=== PATIENT | female | born 1930 | race Caucasian/White ===

== ENCOUNTER → 2017-04-15 | Outpatient (CLI) | payer MEDICARE, OTHER ==
--- NOTE | 2017-04-15 12:01 | RADIOLOGY REPORT (SQ) ---
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 Images stored on PACS. LIMITATIONS: None. FINDINGS: ANATOMY: Pituitary is larger than on the prior. No definitive mass. CSF SPACES: Normal in size and contour. No hemorrhage. CEREBRUM: Scattered high-signal intensity lesions scattered throughout the white matter on FLAIR imag ing with distribution suggesting chronic micro-vascular ischemic change. Sulci and gyri normal in si ze and contour. No evidence of hemorrhage, mass or extraaxial fluid collection. POSTERIOR FOSSA: No signal alteration. No hemorrhage. No edema, masses or mass effect. Internal viktor tory canals, cerebello-pontine angles, mastoids normal. DIFFUSION: Negative for acute or sub-acute infarction. ORBITS: No masses. Globes normal. PARANASAL SINUSES: No fluid levels. Mucosa normal. OTHER: No other significant finding. IMPRESSION: 1. No evidence of acute infarct. 2. Pituitary is enlarged compared to the prior, but no definite mass is identified and this may be ph ysiologic or due to old hemorrhage. Consider followup dedicated pituitary imaging if clinically david cated. EVIDENCE OF ACUTE STROKE: NO. TECHNICAL DOCUMENTATION: JOB ID: [id number] [employer]- All Rights Reserved Reading location - IP/workstation name: [email or web address]
--- NOTE | 2017-04-15 12:02 | RADIOLOGY REPORT (SQ) ---
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 TECHNIQUE: Axial 3-D qelx-bo-berldi acquisition imaging performed through the brain in the area of t he [place]. Images reformatted using 3-D MIPS. LIMITATIONS: None. FINDINGS: SOURCE IMAGES: No unexpected findings on source images. No large masses. 3-D MIP: No aneurysm. No occlusions. No significant stenosis. OTHER: No other significant finding. IMPRESSION: NORMAL MRA OF THE [place]. TECHNICAL DOCUMENTATION: JOB ID: [id number] [employer]- All Rights Reserved Reading location - IP/workstation name: [email or web address]
== END ==
LOC: RAD 10:02
PROVIDERS: ATTEND Specialist
DX: I67.89 Other cerebrovascular disease (principal); H53.2 Diplopia
CPT/HCPCS: 70544; 70551

== ENCOUNTER 2018-03-02 09:49 | Observation (INO) | payer MEDICARE, OTHER ==
--- NOTE | 2018-03-02 10:27 | ER Document Report ---
ED Medical Screen (RME) - General Chief Complaint: S/S of Possible Stroke Stated Complaint: STROKE SYMPTOMS Time Seen by Provider: 03/02/18 10:23 Notes: 87-year-old female with some underlying dementia. Her confusion and memory problems became acutely worse Friday morning. Her family started her on cephalexin Friday evening, as this is been used for urinary tract infections and cellulitis in the past, and she has shown worsening of her dementia with infections previously. She did have an MRI MRA of the head 11 months ago which was unremarkable. I have greeted and performed a rapid initial assessment of this patient. A comprehensive ED assessment and evaluation of the patient, analysis of test results and completion of the medical decision making process will be conducted by additional ED providers. TRAVEL OUTSIDE OF THE [place] IN LAST 30 DAYS: No - Related Data Allergies/Adverse Reactions: acetaminophen [From Darvocet-N 100] Adverse Reaction (Unknown, Verified 03/02/18 09:50) cyclobenzaprine HCl [From Flexeril] Adverse Reaction (Unknown, Verified 03/02/18 09:50) etodolac [From Lodine] Adverse Reaction (Unknown, Verified 03/02/18 09:50) propoxyphene napsylate [From Darvocet-N 100] Adverse Reaction (Unknown, Verified 03/02/18 09:50) sulfamethoxazole [From Bactrim] Adverse Reaction (Unknown, Verified 03/02/18 09:50) trimethoprim [From Bactrim] Adverse Reaction (Unknown, Verified 03/02/18 09:50) Past Medical History - Social History Chew tobacco use (# tins/day): No Frequency of alcohol use: None Drug Abuse: None - Past Medical History Cardiac Medical History: Reports: Hx Hypercholesterolemia Neurological Medical History: Reports: Hx Cerebrovascular Accident - TIA. Renal/ Medical History: Denies: Hx Peritoneal Dialysis Past Surgical History: Reports: Hx Cholecystectomy, Hx Hysterectomy Physical Exam - Vital signs Vitals: Temp Pulse Resp BP Pulse Ox 98.6 F 80 16 143/68 H 91 L 03/02/18 10:01 03/02/18 10:01 03/02/18 10:01 03/02/18 10:01 03/02/18 10:01 Course - Vital Signs Vital signs: Temp Pulse Resp BP Pulse Ox 98.6 F 80 16 143/68 H 91 L 03/02/18 10:01 03/02/18 10:01 03/02/18 10:01 03/02/18 10:01 03/02/18 10:01 Doctor's Discharge - Discharge Referrals: RASHMI PEÑA MD [Primary Care Provider] - Follow up as needed
--- NOTE | 2018-03-02 10:55 | ER Document Report ---
ED General - General Chief Complaint: S/S of Possible Stroke Stated Complaint: STROKE SYMPTOMS Time Seen by Provider: 03/02/18 10:23 TRAVEL OUTSIDE OF THE [place] IN LAST 30 DAYS: No - HPI Notes: Patient is an 87-year-old female with a history of underlying dementia, hypertension, A. fib (on Eliquis), arthritis who presents to the emergency department with daughter with a concern of altered mental status. Daughter states that on Friday morning, 2 days ago, she began being confused and not being able to recall things that she normally knows. She also has lay out of the house confused and that she has been living there for 9 years which is uncommon for her. She has had episodes similar to this previously when she would have an infection in her urine so her daughter did start Keflex a day and a half ago. They brought her here for evaluation. She is otherwise able to eat and drink without difficulty. She is urinating normally and having normal bowel movements. They have not noticed any focal weakness. Patient has been able to ambulate without any difficulties otherwise aside from her arthritic pains. No other recent illness. Denies any headache, fever, head injury, neck pain, changes in vision/speech/hearing, URI, sore throat, chest pain, palpitations, syncope, cough, shortness of breath, wheeze, dyspnea, abdominal pain, nausea/vomiting/diarrhea, urinary retention, dysuria, hematuria, loss of control of bowel or bladder, numbness/tingling, saddle anesthesia, muscle paralysis/we akness, or rash. - Related Data Allergies/Adverse Reactions: acetaminophen [From Darvocet-N 100] Adverse Reaction (Unknown, Verified 03/02/18 09:50) cyclobenzaprine HCl [From Flexeril] Adverse Reaction (Unknown, Verified 03/02/18 09:50) etodolac [From Lodine] Adverse Reaction (Unknown, Verified 03/02/18 09:50) propoxyphene napsylate [From Darvocet-N 100] Adverse Reaction (Unknown, Verified 03/02/18 09:50) sulfamethoxazole [From Bactrim] Adverse Reaction (Unknown, Verified 03/02/18 09:50) trimethoprim [From Bactrim] Adverse Reaction (Unknown, Verified 03/02/18 09:50) Past Medical History - Social History Smoking Status: Never Smoker Chew tobacco use (# tins/day): No Frequency of alcohol use: None Drug Abuse: None Family History: Reviewed & Not Pertinent Patient has suicidal ideation: No Patient has homicidal ideation: No - Past Medical History Cardiac Medical History: Reports: Hx Hypercholesterolemia Neurological Medical History: Reports: Hx Cerebrovascular Accident - TIA. Renal/ Medical History: Denies: Hx Peritoneal Dialysis Past Surgical History: Reports: Hx Cholecystectomy, Hx Hysterectomy Review of Systems - Review of Systems -: Yes All other systems reviewed and negative Physical Exam - Vital signs Vitals: Temp Pulse Resp BP Pulse Ox 98.6 F 80 16 143/68 H 91 L 03/02/18 10:03/02/18 10:03/02/18 10:03/02/18 10:03/02/18 10:01 - Notes Notes: PHYSICAL EXAMINATION: GENERAL: Well-appearing, well-nourished and in no acute distress. A&O to person and knowing her daughter. She could not tell me the correct date or place. She did know who the president was. HEAD: Atraumatic, normocephalic. Non-tender. EYES: Pupils equal round and reactive to light, extraocular movements intact, sclera anicteric, conjunctiva are normal. No nystagmus. vis barriga intact. ENT: EAC clear b/l. TM's intact b/l without erythema, fluid, or perforation. Nares patent and without discharge. oropharynx clear without exudates. No tonsilar hypertrophy or erythema. Moist mucous membranes. No sinus tenderness. NECK: Normal range of motion, supple without lymphadenopathy. No rigidi ty/meningismus. No midline tenderness. LUNGS: Breath sounds clear to auscultation bilaterally and equal. No wheezes rales or rhonchi. HEART: Regular rate and rhythm without murmurs, rubs, gallops. ABDOMEN: Soft, nontender, nondistended abdomen. No guarding, no rebound. Normal bowel sounds present. No CVA tenderness bilaterally. Musculoskeletal: Ext's b/l: FROM to passive/active. Strength 5+/5. No deficits noted. No bony tenderness of extremities. Extremities: No cyanosis, clubbing, or edema b/l. Peripheral pulses 2+. Capillary refill less than 2 seconds. NEUROLOGICAL: NIH 1. GCS 15. Cranial nerves grossly intact. Normal speech, normal gait. Normal sensory, motor exams. Reflexes 2+ b/l. WESTON's negative. Pronator drift negative. Heel/finn, finger/nose wnl. PSYCH: Normal mood, normal affect. SKIN: Warm, Dry, normal turgor, no rashes or lesions noted. Course - Re-evaluation Re-evalutation: 03/02/18 14:25 Patient is an afebrile, well-hydrated, 87-year-old female who presents to the emergency department with confusion/altered mental status and hypoxia. Patient's vitals are currently acceptable at this time and does maintain oxygen around 94% on 2 L. On room air she sits between 88 and 91%. Patient was ambulated and was found to have an oxygen saturation of 82-85% on room air. Patient is not on oxygen at home. She is already on Eliquis, does not have any significant EKG findings, has not had any tachypnea/chest pain/tachycardia, and does not have any other significant DVT risk factors. Her chest x-ray was unremarkable as well as her head CT scan. Her other labs were unremarkable including a urine. No further labs or imaging warranted at this time. I question underlying dementia versus or hypoxia adding to the confusion. I did review this case with Dr. Castro who is in agreement with admission at this time. I did thoroughly review DNR/DNI with the patient and the daughter in the room. Patient does appear to be of sound mind at this time and does state that if she was to go at her age she would like to just "go." She declined wanting intubation or any maneuvers to keep her alive including CPR and shocking of her heart. I did review with the patient as well as the [id number] that today will need to sign formal paperwork, but at this time I will accept the verbal DNR/DNI status. This was passed on to our hospitalist, Dr. Cordero, who accepted patient for admission to the medical floor. - Vital Signs Vital signs: Temp Pulse Resp BP Pulse Ox 98.6 F 80 23 H 165/121 H 94 03/02/18 10:01 03/02/18 10:01 03/02/18 13:03 03/02/18 13:03 03/02/18 13:03 - Laboratory Result Diagrams: 03/02/18 11:04 03/02/18 11:04 Laboratory results interpreted by me: 03/02/18 03/02/18 03/02/18 10:40 11:04 11:04 RDW 15.7 H VBG HCO3 Potassium 3.5 L Carbon Dioxide 32 H BUN 27 H Est GFR (Non-Af Amer) 50 L Alkaline Phosphatase 128 H Urine Urobilinogen 2.0 H Urine Ascorbic Acid 40 H 03/02/18 13:16 RDW VBG HCO3 32.5 H Potassium Carbon Dioxide BUN Est GFR (Non-Af Amer) Alkaline Phosphatase Urine Urobilinogen Urine Ascorbic Acid Discharge - Discharge Clinical Impression: Hypoxemia Altered mental status, unspecified Qualifiers: Altered mental status type: unspecified Qualified Code(s): R41.82 - Altered mental status, unspecified Condition: Stable Disposition: ADMITTED INPATIENT Admitting Provider: Hospitalist - Dr. Cordero Unit Admitted: Medical Floor Referrals: RASHMI PEÑA MD [Primary Care Provider] - Follow up as needed ED NIH Stroke Scale - NIH Stroke Scale When completed:: Before Alteplase *: 1. NIH scale should be completed with appropriate accompanying assessment tools. *: 2. The NIH should reflect what the patient is capable of doing and should not be coached by the clinician. 1a. Level of Consciousness: 0=Alert;keenly responsive -: 1=Drowsy -: 2=Obtunded -: 3=Coma/unresponsive or reflex to noxious stimuli. 1a. Responses: 1 1b. Orientation Questions: a. What month is it? -: b. How old are you? -: 0=Answers both questions correctly. -: 1=Answers one question correctly or patient is intubated or has orotracheal trauma. -: 2=Answers neither question correctly. 1b. Responses: 0 1c. Response to commands: a. Open and close eyes? -: b. Copping Machine Operator and release hand? -: Credit is given despite weakness. Demonstration of task is permitted. Substitute command if hands cannot be used. -: 0=Performs both tasks correctly -: 1=Performs one task correctly -: 2=Performs neither task correctly 1c. Responses: 0 2. Gaze: Establish eye contact and instruct patient to "Follow my finger" -: 0=Normal -: 1=Partial gaze palsy. Gaze is abnormal in one or both eyes, but where forced deviation or total gaze paresis is not present. -: 2=Forced deviation or total gaze paresis. 2. Responses: 0 3. Visual Barriga: Sees fingers in all four quadrants. -: 0=No visual loss. -: 1=Partial hemianopsia. -: 2=Complete hemianopsia. -: 3=Bilateral hemianopsia (including Cortical blindness) 3. Responses: 0 4. Facial Movement: Instruct patient to: -: a. Show me your teeth -: b. Raise your eyebrows -: c. Close your eyes -: d. Smile -: 0=Normal symmetrical movement -: 1=Minor paralysis (flattened nasolabial fold, asymmetry on smiling). -: 2=Partial paralysis (total or near total paralysis of lower face). -: 3=Complete paralysis of upper and lower face 4. Responses: 0 5. Motor functions (left arm): Alternate sides and extend each arm with palms down (90 degrees if sitting or 45 degrees for supine). -: 0=No drift;limb holds for full 10 seconds. -: 1=Drift; limb holds but drifts down before full 10 seconds, but does not hit bed. -: 2=Some effort against gravity; limb cannot get to or maintain position. -: 3=No effort against gravity; limb falls. -: 4=No movement. -: UN=Amputation, joint fusion, explain in comments. 5. Responses (left arm): 0 5. Motor Functions (right arm): Alternate sides and extend each arm with palms down (90 degrees if sitting or 45 degrees for supine). -: 0=No drift;limb holds for full 10 seconds. -: 1=Drift; limb holds but drifts down before full 10 seconds, but does not hit bed. -: 2=Some effort against gravity; limb cannot get to or maintain position. -: 3=No effort against gravity; limb falls. -: 4=No movement. -: UN=Amputation, joint fusion, explain in comments. 5. Responses (right arm): 0 6. Motor Functions (left leg): With patient lying supine, alternate sides and extend each leg (30 degrees always while supine). -: 0=No drift, leg holds position for full 5 seconds -: 1=Drift; leg falls before full 5 seconds but does not hit bed. -: 2=Some effort against gravity, leg falls to bed but some effort against gravity. -: 3=No effort against gravity, leg falls to bed immediately. -: 4=No movement. -: UN=Amputation, joint fusion; explain in comments. 6. Responses (left leg): 0 6. Motor Functions (right leg): With patient lying supine, alternate sides and extend each leg (30 degrees always while supine). -: 0=No drift, leg holds position for full 5 seconds -: 1=Drift; leg falls before full 5 seconds but does not hit bed. -: 2=Some effort against gravity, leg falls to bed but some effort against gravity. -: 3=No effort against gravity, leg falls to bed immediately. -: 4=No movement. -: UN=Amputation, joint fusion; explain in comments. 6. Responses (right leg): 0 7. Limb Ataxia: With eyes open instruct patient to: -: a. "Touch your finger to your nose". -: b. "Touch your heel to your finn" -: 0=Absent -: 1=Present in one limb. -: 2=Present in two limbs. -: UN=Amputation or joint fusion; explain in comments. 7. Responses: 0 8. Sensory: Test sensation using pinprick or noxious stimuli. Test as many body parts as possible. -: 0=Normal;no sensory loss -: 1=Mile to moderate sensory loss (patient feels pin prick but is less sharp on affected side). -: 2=Severe or total sensory loss. 8. Responses: 0 9. Best Language: Instruct patient to: -: a. "Describe what you see in this picture." -: b. "Name the items in this picture." -: c. "Read these sentences." -: 0=No aphasia, normal -: 1=Mild to moderate aphasia. -: 2=Severe aphasia -: 3=Mute, global aphasia, no usable speech or auditory comprehension. 9. Responses: 0 10. Articulation, Dysarthia: Instruct patient to: -: "Read these words" or "Repeat these words" -: 0=Normal -: 1=Mild to moderate; patient may slur some words but can be understood without difficulty. -: 2=Severe; patients speech so slurred as to be unintelligible in the absence of dysphasia. -: UN=Intubated or other physical barrier, explain in comments. 10. Responses: 0 11. Extinction or inattention: 0=No abnormality -: 1= Visual, tactile, auditory, spatial, or personal inattention or extinction to bilateral simulation in one or the sensory modalities. -: 2=Profound higinio-inattention or higinio-inattention to more than one modality; does not recognize own hand. 11. Responses: 0 Total Score: 1
[2018-03-02 11:02] LABS: APPEARANCE,URINE CLEAR; BILIRUBIN,URINE NEGATIVE (NEGATIVE); COLOR,URINE YELLOW; GLUCOSE, URINE NEGATIVE (NEGATIVE); KETONES,URINE NEGATIVE (NEGATIVE); LEUKOCYTE ESTERASE,URINE NEGATIVE (NEGATIVE); NITRITE,URINE NEGATIVE (NEGATIVE); PROTEIN,URINE NEGATIVE (NEGATIVE); URINE SPECIFIC GRAVITY 1.017
[2018-03-02 11:25] LABS: ABSOLUTE EOSINOPHILS # (AUTO) 0.1 10^3/uL (0.0-0.6); ABSOLUTE LYMPHOCYTES (AUTO) 2.9 10^3/uL (0.5-4.7); ABSOLUTE MONOCYTES (AUTO) 0.9 10^3/uL (0.1-1.4); ABSOLUTE NEUT (AUTO) 4.3 10^3/uL (1.7-8.2); BASOPHILS % (AUTO) 0.3 % (0-2); EOSINOPHILS % (AUTO) 1.5 % (0-6); HEMATOCRIT 42.6 % (36.0-47.0); HEMOGLOBIN 14.2 g/dL (12.0-15.5); LYMPHOCYTES % (AUTO) 34.5 % (13-45); MEAN CORPUSCULAR HEMOGLOBIN 29.4 pg (27.0-33.4); MEAN CORPUSCULAR HGB CONC 33.3 g/dL (32.0-36.0); MEAN CORPUSCULAR VOLUME 89 fl (80-97); MONOCYTES % (AUTO) 11.2 % (3-13); PLATELET COUNT 301 10^3/uL (150-450); RED BLOOD COUNT 4.81 10^6/uL (3.72-5.28); RED CELL DISTRIBUTION WIDTH 15.7 % (11.5-14.0); SEGMENTED NEUTROPHILS % (AUTO) 52.5 % (42-78); TOTAL CELLS COUNTED % (AUTO) 100 %; WHITE BLOOD COUNT 8.3 10^3/uL (4.0-10.5)
--- NOTE | 2018-03-02 11:35 | RADIOLOGY REPORT (SQ) ---
EXAM DESCRIPTION: CT HEAD WITHOUT COMPLETED DATE/TIME: 03/02/2018 11:24 am REASON FOR STUDY: AMS COMPARISON: None. TECHNIQUE: Axial images acquired through the brain without intravenous contrast. Images reviewed wi th bone, brain and subdural windows. Additional sagittal and coronal reconstructions were generated. Images stored on PACS. All CT scanners at this facility use dose modulation, iterative reconstruction, and/or weight based d osing when appropriate to reduce radiation dose to as low as reasonably achievable (ALARA). [facility]: Dose Right [facility]: CareDose [facility]: Dose Right [facility]: Teradose 4D [facility]: BoxC RADIATION DOSE: CT Rad equipment meets quality standard of care and radiation dose reduction techniq ues were employed. CTDIvol: 48.6 mGy. DLP: 904 mGy-cm.mGy. LIMITATIONS: None. FINDINGS: VENTRICLES: Prominent. CEREBRUM: No masses. No hemorrhage. No midline shift. Areas of low density in the white matter mos t likely due to chronic micro-vascular ischemic change. No evidence for acute infarction. CEREBELLUM: No masses. No hemorrhage. No alteration of density. No evidence for acute infarction. EXTRAAXIAL SPACES: Age-related involutional change. No fluid collections. No masses. ORBITS AND GLOBE: No intra- or extraconal masses. Normal contour of globe without masses. CALVARIUM: No fracture. PARANASAL SINUSES: No fluid or mucosal thickening. SOFT TISSUES: No mass or hematoma. OTHER: No other significant finding. IMPRESSION: CHRONIC CHANGES OF ATROPHY AND MICROVASCULAR ISCHEMIA. NO ACUTE PROCESS. EVIDENCE OF ACUTE STROKE: NO. TECHNICAL DOCUMENTATION: JOB ID: [id number] Quality ID # [id number]: Final reports with documentation of one or more dose reduction techniques (e.g., Au tomated exposure control, adjustment of the mA and/or kV according to patient size, use of iterative reconstruction technique) 2010 [employer]- All Rights Reserved Reading location - IP/workstation name: [email or web address]
[2018-03-02 11:42] LABS: ALANINE AMINOTRANSFERASE 36 U/L (9-52); ALBUMIN 3.9 g/dL (3.5-5.0); ALKALINE PHOSPHATASE 128 U/L (38-126); ANION GAP 8 (5-19); ASPARTATE AMINO TRANSFERASE 29 U/L (14-36); BILIRUBIN,DIRECT 0.4 mg/dL (0.0-0.4); BILIRUBIN,TOTAL 0.7 mg/dL (0.2-1.3); BLOOD UREA NITROGEN 27 mg/dL (7-20); CALCIUM 9.7 mg/dL (8.4-10.2); CARBON DIOXIDE 32 mmol/L (22-30); CHLORIDE 99 mmol/L (98-107); CREATINE KINASE 33 U/L (30-135); GLUCOSE 95 mg/dL (75-110); POTASSIUM 3.5 mmol/L (3.6-5.0); SODIUM 138.7 mmol/L (137-145); TOTAL PROTEIN 6.6 g/dL (6.3-8.2)
[2018-03-02 12:34] LABS: URINE AMPHETAMINES SCREEN NEGATIVE; URINE BARBITURATES SCREEN NEGATIVE; URINE BENZODIAZEPINES SCREEN NEGATIVE; URINE COCAINE SCREEN NEGATIVE; URINE MARIJUANA (THC) SCREEN NEGATIVE; URINE METHADONE SCREEN NEGATIVE; URINE PHENCYCLIDINE SCREEN NEGATIVE
[2018-03-02 13:31] LABS: VENOUS BLOOD BASE EXCESS 6.1 mmol/L; VENOUS BLOOD HCO3 32.5 mmol/L (20-32); VENOUS BLOOD PCO2 53.6 mmHg (35-63); VENOUS BLOOD PH 7.4 (7.30-7.42)
--- NOTE | 2018-03-02 14:10 | RADIOLOGY REPORT (SQ) ---
EXAM DESCRIPTION: CHEST SINGLE VIEW COMPLETED DATE/TIME: 03/02/2018 1:45 pm REASON FOR STUDY: low o2 COMPARISON: None. EXAM PARAMETERS: NUMBER OF VIEWS: One view. TECHNIQUE: Single frontal radiographic view of the chest acquired. RADIATION DOSE: NA LIMITATIONS: AP portable. FINDINGS: LUNGS AND PLEURA: No opacities, masses or pneumothorax. No pleural effusion. MEDIASTINUM AND HILAR STRUCTURES: No masses. Contour normal. HEART AND VASCULAR STRUCTURES: Heart normal in size for technique. Normal vasculature. BONES: No acute findings. HARDWARE: None in the chest. OTHER: No other significant finding. IMPRESSION: NO ACUTE RADIOGRAPHIC FINDING IN THE CHEST. TECHNICAL DOCUMENTATION: JOB ID: [id number] [employer]- All Rights Reserved Reading location - IP/workstation name: [email or web address]
--- NOTE | 2018-03-02 15:40 | PDOC H&P ---
History of Present Illness Admission Date/PCP: 03/02/18 14:58 RASHMI PEÑA MD History of Present Illness: MICKEY VASQUEZ is a 87 year old female with a history of cognitive impairment, atrial fibrillation, chronic pain, depression, and hypertension, who presents with a worsening of her cognitive impairment for the past 3 days. She began to be more confused than usual, not remembering where she was even though the surrounding should have been familiar. She could not remember a conversation she had just finished having. Her symptoms have been steady since they began. She has not had any discernable physical symptoms. She sits most of the day, and has been having trouble walking short distances for several months. She sometimes has to have help getting back from the bathroom. She is unable to tell me why she is in the ER today. When they ambulated her, her SpO2 dropped to the mid-80's and came back up at rest. She has not displayed any respiratory complaints. Past Medical History Cardiac Medical History: Reports: Hyperlipidema Past Surgical History Past Surgical History: Reports: Cholecystectomy, Hysterectomy Social History Smoking Status: Never Smoker Family History Family History: Reviewed & Not Pertinent Parental Family History Reviewed: Yes - unknown Children Family History Reviewed: Yes - noncontributory Sibling(s) Family History Reviewed.: Yes - noncontributory Medication/Allergy Allergies/Adverse Reactions: acetaminophen [From Darvocet-N 100] Adverse Reaction (Unknown, Verified 03/02/18 09:50) cyclobenzaprine HCl [From Flexeril] Adverse Reaction (Unknown, Verified 03/02/18 09:50) etodolac [From Lodine] Adverse Reaction (Unknown, Verified 03/02/18 09:50) propoxyphene napsylate [From Darvocet-N 100] Adverse Reaction (Unknown, Verified 03/02/18 09:50) sulfamethoxazole [From Bactrim] Adverse Reaction (Unknown, Verified 03/02/18 09:50) trimethoprim [From Bactrim] Adverse Reaction (Unknown, Verified 03/02/18 09:50) Review of Systems ROS unobtainable: Due to mental status Physical Exam Vital Signs: Temp Pulse Resp BP Pulse Ox 98.6 F 80 14 165/121 H 94 03/02/18 10:01 03/02/18 10:01 03/02/18 14:35 03/02/18 13:03 03/02/18 13:03 Intake & Output 03/01/18 03/02/18 03/03/18 06:59 06:59 06:59 Weight 99.4 kg General appearance: PRESENT: no acute distress, cooperative, morbidly obese Head exam: PRESENT: atraumatic, normocephalic Eye exam: PRESENT: EOMI, PERRLA. ABSENT: conjunctival injection, nystagmus, scleral icterus Ear exam: PRESENT: normal external ear exam Mouth exam: PRESENT: moist, neck supple Throat exam: ABSENT: post pharyngeal erythema Neck exam: PRESENT: full ROM. ABSENT: carotid bruit, JVD, lymphadenopathy, meningismus, tenderness, thyromegaly Respiratory exam: PRESENT: clear to auscultation brianne, symmetrical, unlabored. ABSENT: accessory muscle use, crackles, prolonged expiratory phas, rhonchi, tachypnea, wheezes Cardiovascular exam: PRESENT: irregular rhythm Vascular exam: PRESENT: normal capillary refill GI/Abdominal exam: PRESENT: normal bowel sounds, soft. ABSENT: distended, guarding, rebound, tenderness Extremities exam: ABSENT: clubbing, pedal edema Musculoskeletal exam: PRESENT: ambulatory - uses a cane, needs help with transfers, cannot walk far Neurological exam: PRESENT: alert, awake, oriented to person, CN II-XII grossly intact. ABSENT: oriented to place, oriented to time, oriented to situation, motor sensory deficit Psychiatric exam: PRESENT: appropriate affect, normal mood Skin exam: PRESENT: dry, warm Results Laboratory Results: 03/02/18 11:04 03/02/18 11:04 03/02/18 03/02/18 03/02/18 10:40 11:04 11:04 WBC 8.3 RBC 4.81 Hgb 14.2 Hct 42.6 MCV 89 MCH 29.4 MCHC 33.3 RDW 15.7 H Plt Count 301 Seg Neutrophils % 52.5 Lymphocytes % 34.5 Monocytes % 11.2 Eosinophils % 1.5 Basophils % 0.3 Absolute Neutrophils 4.3 Absolute Lymphocytes 2.9 Absolute Monocytes 0.9 Absolute Eosinophils 0.1 Absolute Basophils 0.0 VBG pH VBG pCO2 VBG HCO3 VBG Base Excess Sodium 138.7 Potassium 3.5 L Chloride 99 Carbon Dioxide 32 H Anion Gap 8 BUN 27 H Creatinine 1.04 Est GFR ( Amer) > 60 Est GFR (Non-Af Amer) 50 L Glucose 95 Calcium 9.7 Total Bilirubin 0.7 AST 29 ALT 36 Alkaline Phosphatase 128 H Total Protein 6.6 Albumin 3.9 Urine Color YELLOW Urine Appearance CLEAR Urine pH 8.0 Ur Specific Marshall 1.017 Urine Protein NEGATIVE Urine Glucose (UA) NEGATIVE Urine Ketones NEGATIVE Urine Blood NEGATIVE Urine Nitrite NEGATIVE Ur Leukocyte Esterase NEGATIVE Urine WBC (Auto) 3 03/02/18 13:16 WBC RBC Hgb Hct MCV MCH MCHC RDW Plt Count Seg Neutrophils % Lymphocytes % Monocytes % Eosinophils % Basophils % Absolute Neutrophils Absolute Lymphocytes Absolute Monocytes Absolute Eosinophils Absolute Basophils VBG pH 7.40 VBG pCO2 53.6 VBG HCO3 32.5 H VBG Base Excess 6.1 Sodium Potassium Chloride Carbon Dioxide Anion Gap BUN Creatinine Est GFR ( Amer) Est GFR (Non-Af Amer) Glucose Calcium Total Bilirubin AST ALT Alkaline Phosphatase Total Protein Albumin Urine Color Urine Appearance Urine pH Ur Specific Marshall Urine Protein Urine Glucose (UA) Urine Ketones Urine Blood Urine Nitrite Ur Leukocyte Esterase Urine WBC (Auto) 03/02/18 03/02/18 11:04 11:04 Creatine Kinase 33 Troponin I < 0.012 Impressions: Head CT 03/02/18 10:51 IMPRESSION: CHRONIC CHANGES OF ATROPHY AND MICROVASCULAR ISCHEMIA. NO ACUTE PROCESS. EVIDENCE OF ACUTE STROKE: NO. Chest X-Ray 03/02/18 12:53 IMPRESSION: NO ACUTE RADIOGRAPHIC FINDING IN THE CHEST. Assessment & Plan - Diagnosis (1) Encephalopathy Is this a current diagnosis for this admission?: Yes Plan: I suspect a progression of her cognitive impairment, likely dementia. Head CT normal. Will get MRI of the brain. Her chronic pain meds could be exacerbating it, but I do note that she has been on the same regimen for several months. (2) Hypoxemia Is this a current diagnosis for this admission?: Yes Plan: I believe it is from deconditioning. She is sedentary, and cannot ambulate more than a few feet without getting winded, and she recovers quickly at rest. She shows no signs or cardiac or pulmonary decompensation. Will see if she qualifies for home O2. Will get PT/OT eval. She would benefit from cardiopulmonary rehab. (3) Atrial fibrillation Qualifiers: Atrial fibrillation type: chronic Qualified Code(s): I48.2 - Chronic atrial fibrillation Is this a current diagnosis for this admission?: Yes Plan: will continue her diltiazem, flecainide, and Eliquis. - Time Time Spent: 50 to 70 Minutes
[2018-03-02 16:10] LABS: FREE T4 (FREE THYROXINE) 0.95 ng/dL (0.78-2.19)
[2018-03-02 16:24] LABS: THYROID STIMULATING HORMONE 3.75 uIU/mL (0.47-4.68)
--- NOTE | 2018-03-02 18:38 | RADIOLOGY REPORT (SQ) ---
EXAM DESCRIPTION: MRI HEAD WITHOUT COMPLETED DATE/TIME: 03/02/2018 6:08 pm REASON FOR STUDY: encephalopathy COMPARISON: 04/15/2017 TECHNIQUE: Multiplanar imaging includes non-contrasted T1, T2, FLAIR, and diffusion with ADC map seq uences. Images stored on PACS. LIMITATIONS: None. FINDINGS: ANATOMY: No anomalies. Normal vascular flow voids. Pituitary gland is prominent. CSF SPACES: Lateral ventricles are prominent. Sulci and fissures are slightly prominent. CEREBRUM: Gyri normal in size and contour. Scattered small areas of increased white matter signal on FLAIR imaging. No evidence of hemorrhage, mass, or extraaxial fluid collection. POSTERIOR FOSSA: No signal alteration. No hemorrhage. No edema, masses or mass effect. Internal viktor tory canals, cerebello-pontine angles, mastoids normal. DIFFUSION IMAGING: Negative for acute or sub-acute infarction. ORBITS: No masses. Globes normal. PARANASAL SINUSES: No fluid levels. Mucosa normal. OTHER: No other significant finding. IMPRESSION: Mild involutional changes of aging and mild chronic microvascular ischemia. Prominent p ituitary gland. No acute intracranial imaging findings. No significant interval change. EVIDENCE OF ACUTE STROKE: NO. TECHNICAL DOCUMENTATION: JOB ID: [id number] [employer]- All Rights Reserved Reading location - IP/workstation name: [email or web address]
[2018-03-02] MEDS ORDERED: TRAMADOL HCL 50 MG TABLET PO PRN (23:20)
[2018-03-02] MEDS ORDERED: (PENDING PHARMACY ID) (Torsemide [Demadex 10 Mg Tablet] 10 MG) PO SCH (23:30)
[2018-03-02] MEDS ORDERED: ATORVASTATIN CALCIUM 80 MG TABLET PO ONE ×2 (23:45→23:59)
[2018-03-02] MEDS ORDERED: MORPHINE SULFATE SR 30 MG TABLET PO ONE (23:59)
[2018-03-02] MEDS ORDERED: APIXABAN 5 MG TABLET PO ONE (23:59)
[2018-03-02] MEDS ORDERED: TOLTERODINE TARTRATE 1 MG TABLET PO ONE (23:59)
--- NOTE | 2018-03-03 00:10 | EKG REPORT ---
SEVERITY:- ABNORMAL ECG - SINUS RHYTHM, REC REPEAT EKG SEC TO BASELINE ARTIFACTS BORDERLINE LEFT AXIS DEVIATION NONSPECIFIC T ABNORMALITIES, LATERAL LEADS : Confirmed by: Jasmeet Winn 03-Mar-2018 00:09:55
[2018-03-03 07:06] LABS: ANION GAP 8 (5-19); BLOOD UREA NITROGEN 27 mg/dL (7-20); CALCIUM 9.4 mg/dL (8.4-10.2); CARBON DIOXIDE 33 mmol/L (22-30); CHLORIDE 98 mmol/L (98-107); GLUCOSE 101 mg/dL (75-110); POTASSIUM 3.6 mmol/L (3.6-5.0); SODIUM 139.4 mmol/L (137-145)
[2018-03-03] MEDS ORDERED: TORSEMIDE 20 MG TABLET PO SCH (08:00)
[2018-03-03] MEDS: BUPROPION HCL 75 MG TABLET PO SCH ×2 (09:35→15:27)
--- NOTE | 2018-03-03 09:58 | Physician Advisory Note ---
Physician Advisor ProgressNote .: Pursuant to the plan for [facility], I have reviewed the medical record for this patient. Physician Advisor Statement: Please consider documenting, if you agree: 1. "Acute metabolic encephalopathy due to [hypoxemia? dehydration? ...]" vs "Acute AMS/delirium due to progression of dementia" (worsening of dementia is not considered an "encephalopathy") vs "Acute cerebrovascular insufficiency due to hypoxemia", vs "toxic encephalopathy due to ____ [Rx names]" vs ... 2. "Acute hypoxemia, suspect due to " (pulmonary hypertension? COPD? acute/chronic syst/diast CHF? interstitial lung dz? ... ) - no previous ECHO or chest CT in [facility]. - Abd CT from 2014 showed scattered calcified granulomas & linear scarri ng vs atelec of lung bases, along with a 2.6 x 1.9cm mass Lt kidney c/w Renal Cell Carcinoma. - if deconditioning is the suspected cause, please explain how deconditioning could cause hypoxemia, ... - or do you think, by time of d/c, she instead has "chronic hypoxemia, likely due to ____, now requiring __L O2 at baseline" 3. Status/medical necessity: Medicare pt appropriately brought in as Obs for mental status changes & hypoxemia of unclear etiology. - If attending is still concerned about pt 03/03, finding pt not yet clinically safe for d/c, please document ongoing clinical issues/concerns needing continued eval/monitoring, and may change to Inpatient status. Thanks! CK
[2018-03-03] MEDS ORDERED: FLECAINIDE ACETATE 100 MG TABLET PO SCH ×2 (10:00)
[2018-03-03] MEDS ORDERED: BUPROPION HCL 75 MG TABLET PO SCH (10:00)
[2018-03-03] MEDS ORDERED: MORPHINE SULFATE SR 30 MG TABLET PO SCH (10:00)
[2018-03-03] MEDS ORDERED: APIXABAN 5 MG TABLET PO SCH (10:00)
[2018-03-03] MEDS ORDERED: (PENDING PHARMACY ID) (Naloxegol Oxalate 25 MG) PO SCH (10:00)
[2018-03-03] MEDS ORDERED: TOLTERODINE TARTRATE 1 MG TABLET PO SCH (10:00)
[2018-03-03 12:48] VITALS: BP 125/63
--- NOTE | 2018-03-03 14:57 | PDOC DISCHARGE SUMMARY ---
General - Admit/Disc Date/PCP Admission Date/Primary Care Provider: 03/02/18 14:58 RASHMI PEÑA MD Discharge Date: 03/03/18 - Discharge Diagnosis (2) Atrial fibrillation Is this a current diagnosis for this admission?: Yes (3) Encephalopathy Is this a current diagnosis for this admission?: Yes (4) Hypoxemia Is this a current diagnosis for this admission?: Yes - Additional Information Resuscitation Status: Do Not Resuscitate Home Medications: Apixaban [Eliquis 5 mg Tablet] 5 mg PO Q12 03/02/18 Ascorbic Acid [Vitamin C] 1,000 mg PO DAILY 03/02/18 Atorvastatin Calcium [Lipitor 80 mg Tablet] 80 mg PO QHS 03/02/18 Bupropion HCl [Wellbutrin 75 mg Tablet] 75 mg PO TID 03/02/18 Diltiazem HCl [Cardizem] 120 mg PO QPM 03/02/18 Duloxetine HCl [Cymbalta] 30 mg PO QPM 03/02/18 Flecainide Acetate [Tambocor 100 mg Tablet] 50 mg PO BID 03/02/18 Morphine Sulfate [Morphine Sulfate ER] 30 mg PO Q12 03/02/18 Naloxegol Oxalate [Movantik 25 mg Tablet] 25 mg PO DAILY 03/02/18 Solifenacin Succinate [Vesicare] 5 mg PO DAILY 03/02/18 Torsemide [Demadex 10 mg Tablet] 10 mg PO Q3D MDD *NEXT DOSE DUE 03-03-18* 03/02/18 Tramadol HCl [Ultram 50 mg Tablet] 50 mg PO BIDP PRN 03/02/18 Triamterene/Hydrochlorothiazid [Maxzide-25 Tablet] 2 tab PO QAM 03/02/18 History of Present Illness History of Present Illness: MICKEY VASQUEZ is a 87 year old female with a history of cognitive impairment, atrial fibrillation, chronic pain, depression, and hypertension, who presents with a worsening of her cognitive impairment for the past 3 days. She began to be more confused than usual, not remembering where she was even though the surrounding should have been familiar. She could not remember a conversation she had just finished having. Her symptoms have been steady since they began. She has not had any discernable physical symptoms. She sits most of the day, and has been having trouble walking short distances for several months. She sometimes has to have help getting back from the bathroom. She is unable to tell me why she is in the ER today. When they ambulated her, her SpO2 dropped to the mid-80's and came back up at rest. She has not displayed any respiratory complaints. Hospital Course Hospital Course: This is a very pleasant 87 years old female patient admitted yesterday with chief complaint of altered mental status. Patient has underlying dementia and atrial fibrillation. At that admission patient shows some hypoxemia which has resolved. Currently patient is at her baseline. Z altered mental status is probably part of the natural course of her dementia. Her vital signs and labs are within normal limits. Patient is stable enough to go home today Physical Exam Vital Signs: Temp Pulse Resp BP Pulse Ox 99.0 F 70 18 106/69 96 03/03/18 10:58 03/03/18 10:58 03/03/18 10:58 03/03/18 10:58 03/03/18 10:58 Intake & Output 03/02/18 03/03/18 03/04/18 06:59 06:59 06:59 Intake Total 0 355 Balance 0 355 Weight 99.4 kg General appearance: PRESENT: no acute distress Eye exam: PRESENT: conjunctiva pink Mouth exam: PRESENT: moist Neck exam: ABSENT: carotid bruit, JVD, lymphadenopathy, thyromegaly Respiratory exam: PRESENT: clear to auscultation brianne. ABSENT: rales, rhonchi, wheezes Cardiovascular exam: PRESENT: RRR. ABSENT: diastolic murmur, rubs, systolic murmur GI/Abdominal exam: PRESENT: normal bowel sounds, soft. ABSENT: distended, g uarding, mass, organolmegaly, rebound, tenderness Neurological exam: PRESENT: alert, awake, oriented to time, oriented to situation Results Laboratory Results: 03/02/18 11:04 03/03/18 06:14 03/02/18 03/02/18 03/03/18 11:04 15:35 06:14 Sodium 139.4 Potassium 3.6 Chloride 98 Carbon Dioxide 33 H Anion Gap 8 BUN 27 H Creatinine 1.05 Est GFR ( Amer) > 60 Est GFR (Non-Af Amer) 50 L Glucose 101 Calcium 9.4 Ammonia < 8.7 L TSH 3.75 Free T4 0.95 03/02/18 03/02/18 11:04 11:04 Creatine Kinase 33 Troponin I < 0.012 Impressions: Head MRI 03/02/18 00:00 IMPRESSION: Mild involutional changes of aging and mild chronic microvascular ischemia. Prominent pituitary gland. No acute intracranial imaging findings. No significant interval change. EVIDENCE OF ACUTE STROKE: NO. Head CT 03/02/18 10:51 IMPRESSION: CHRONIC CHANGES OF ATROPHY AND MICROVASCULAR ISCHEMIA. NO ACUTE PROCESS. EVIDENCE OF ACUTE STROKE: NO. Chest X-Ray 03/02/18 12:53 IMPRESSION: NO ACUTE RADIOGRAPHIC FINDING IN THE CHEST. Qualifiers - * PATIENT BEING DISCHARGED WITH ANY OF THE FOLLOWING DIAGNOSIS: No
[2018-03-03] MEDS ORDERED: DILTIAZEM HCL 60 MG TABLET PO SCH (18:00)
[2018-03-03] MEDS ORDERED: DULOXETINE HCL 30 MG CAPSULE.DR PO SCH (18:00)
[2018-03-03] MEDS ORDERED: ATORVASTATIN CALCIUM 80 MG TABLET PO SCH (22:00)
== END 2018-03-03 16:59 | disposition home health service (06) ==
LOC: ER 09:49 → EH 14:58 → INTOOBSV 14:58 → 4S 21:36
PROVIDERS: ADMIT Internal Medicine; ATTEND Internal Medicine
DX: I48.2 Chronic atrial fibrillation (principal); R09.02 Hypoxemia; G93.40 Encephalopathy, unspecified; F03.90 Unspecified dementia, unspecified severity, without behavioral disturbance, psychotic disturbance, mood disturbance, and anxiety; E66.01 Morbid (severe) obesity due to excess calories; M19.90 Unspecified osteoarthritis, unspecified site; G89.29 Other chronic pain; M62.81 Muscle weakness (generalized); F32.9 Major depressive disorder, single episode, unspecified; Z79.02 Long term (current) use of antithrombotics/antiplatelets; Z90.49 Acquired absence of other specified parts of digestive tract; Z90.710 Acquired absence of both cervix and uterus; Z66 Do not resuscitate; Z79.899 Other long term (current) drug therapy; Z86.73 Personal history of transient ischemic attack (TIA), and cerebral infarction without residual deficits; R29.701 NIHSS score 1
CPT/HCPCS: 93005; 99285; 36415 ×2; 87040; 84439; 82140; 82550; 84443; 85025; 80048; 80053; 81001; 84484; 80307; 82803; 70551; 71045; 70450; 93010; 97116; 97161; 97165; G0378 ×3; A9270 ×6; J3490

== ENCOUNTER 2018-03-24 11:44 | Inpatient (IN) | payer MEDICARE, OTHER ==
--- NOTE | 2018-03-24 12:25 | ER Document Report ---
ED Medical Screen (RME) - General Chief Complaint: Rectal Bleeding Stated Complaint: BLEEDING FROM RECTUM Time Seen by Provider: 03/24/18 12:20 Notes: 87-year-old female patient to the emergency department for evaluation of bright red blood per rectum. Family members are here. States that she looks a little bit more pale. More confused. Picture shown of blood in the toilet. On Eliquis. I have greeted and performed a rapid initial assessment of this patient. A comprehensive ED assessment and evaluation of the patient, analysis of test results and completion of the medical decision making process will be conducted by additional ED providers. TRAVEL OUTSIDE OF THE [place] IN LAST 30 DAYS: No - Related Data Allergies/Adverse Reactions: acetaminophen [From Darvocet-N 100] Adverse Reaction (Unknown, Verified 03/24/18 12:00) cyclobenzaprine HCl [From Flexeril] Adverse Reaction (Unknown, Verified 03/24/18 12:00) etodolac [From Lodine] Adverse Reaction (Unknown, Verified 03/24/18 12:00) propoxyphene napsylate [From Darvocet-N 100] Adverse Reaction (Unknown, Verified 03/24/18 12:00) sulfamethoxazole [From Bactrim] Adverse Reaction (Unknown, Verified 03/24/18 12:00) trimethoprim [From Bactrim] Adverse Reaction (Unknown, Verified 03/24/18 12:00) Past Medical History - Past Medical History Cardiac Medical History: Reports: Hx Hypercholesterolemia Neurological Medical History: Reports: Hx Cerebrovascular Accident - TIA. Renal/ Medical History: Denies: Hx Peritoneal Dialysis Past Surgical History: Reports: Hx Cholecystectomy, Hx Hysterectomy Physical Exam - Vital signs Vitals: Temp Pulse Resp BP Pulse Ox 99.1 F 72 18 119/59 L 91 L 03/24/18 12:03 03/24/18 12:03 03/24/18 12:03 03/24/18 12:03 03/24/18 12:03 Course - Vital Signs Vital signs: Temp Pulse Resp BP Pulse Ox 99.1 F 72 18 119/59 L 91 L 03/24/18 12:03 03/24/18 12:03 03/24/18 12:03 03/24/18 12:03 03/24/18 12:03
[2018-03-24 13:13] LABS: ABSOLUTE EOSINOPHILS # (AUTO) 0.2 10^3/uL (0.0-0.6); ABSOLUTE LYMPHOCYTES (AUTO) 2.5 10^3/uL (0.5-4.7); ABSOLUTE NEUT (AUTO) 5.3 10^3/uL (1.7-8.2); BASOPHILS % (AUTO) 0.1 % (0-2); EOSINOPHILS % (AUTO) 2.4 % (0-6); HEMATOCRIT 37.4 % (36.0-47.0); HEMOGLOBIN 12.6 g/dL (12.0-15.5); LYMPHOCYTES % (AUTO) 27.9 % (13-45); MEAN CORPUSCULAR HEMOGLOBIN 29.1 pg (27.0-33.4); MEAN CORPUSCULAR HGB CONC 33.8 g/dL (32.0-36.0); MEAN CORPUSCULAR VOLUME 86 fl (80-97); MONOCYTES % (AUTO) 11.3 % (3-13); PLATELET COUNT 388 10^3/uL (150-450); RED BLOOD COUNT 4.33 10^6/uL (3.72-5.28); RED CELL DISTRIBUTION WIDTH 16.1 % (11.5-14.0); SEGMENTED NEUTROPHILS % (AUTO) 58.3 % (42-78); TOTAL CELLS COUNTED % (AUTO) 100 %
[2018-03-24 13:23] LABS: INTERNATIONAL RATION (INR) 1.49; PROTHROMBIN TIME 18.8 SEC (11.4-15.4)
[2018-03-24 13:24] LABS: PARTIAL THROMBOPLASTIN TIME 45.3 SEC (23.5-35.8)
--- NOTE | 2018-03-24 13:51 | ER Document Report ---
Addendum entered and electronically signed by PADMAJA ANDERSON PA-C 03/24/18 15:50: Course - Re-evaluation Re-evalutation: 03/24/18 15:50 2+ pitting edema LE's b/l. - Vital Signs Vital signs: Temp Pulse Resp BP Pulse Ox 99.1 F 72 18 119/59 L 91 L 03/24/18 12:03 03/24/18 12:03 03/24/18 12:03 03/24/18 12:03 03/24/18 12:03 - Laboratory Result Diagrams: 03/24/18 13:00 03/24/18 13:53 Laboratory results interpreted by me: 03/24/18 03/24/18 03/24/18 13:00 13:00 13:53 RDW 16.1 H PT 18.8 H APTT 45.3 H Potassium 3.1 L Chloride 95 L Carbon Dioxide 36 H BUN 31 H Est GFR ( Amer) 59 L Est GFR (Non-Af Amer) 49 L Total Protein 5.5 L Albumin 3.1 L Original Note: ED General - General Chief Complaint: Rectal Bleeding Stated Complaint: BLEEDING FROM RECTUM Time Seen by Provider: 03/24/18 12:20 TRAVEL OUTSIDE OF THE [place] IN LAST 30 DAYS: No - HPI Notes: Patient is an 87-year-old female with a history of cognitive impairment, atrial fibrillation, chronic pain, depression, chronic hypoxemia with deconditioning, and hypertension who presents the emergency department complaining of seeing blood in her stool over the last 1-2 days. Family is currently not at bedside with the patient. Patient states that she does not have any pain. She has been eating and drinking without difficulty. She has been urinating normally and otherwise having normal bowel movements. Patient has felt weaker recently. Denies any headache, fever, neck pain, falls, URI, sore throat, chest pain, palpitations, syncope, cough, shortness of breath, wheeze, dyspnea, abdominal pain, nausea/vomiting/diarrhea, urinary retention, dysuria, or rash. 1445 I was able to speak with the daughter in law on the phone: Her is on his way in, but they have noticed blood in the toilet w/o stool and she has been having approx 6-7 bloody BM's since last night. She has been weaker than normal and needing more assistance with ADL's. - Related Data Allergies/Adverse Reactions: acetaminophen [From Darvocet-N 100] Adverse Reaction (Unknown, Verified 03/24/18 12:00) cyclobenzaprine HCl [From Flexeril] Adverse Reaction (Unknown, Verified 03/24/18 12:00) etodolac [From Lodine] Adverse Reaction (Unknown, Verified 03/24/18 12:00) propoxyphene napsylate [From Darvocet-N 100] Adverse Reaction (Unknown, Verified 03/24/18 12:00) sulfamethoxazole [From Bactrim] Adverse Reaction (Unknown, Verified 03/24/18 12:00) trimethoprim [From Bactrim] Adverse Reaction (Unknown, Verified 03/24/18 12:00) Past Medical History - Social History Smoking Status: Never Smoker Chew tobacco use (# tins/day): No Frequency of alcohol use: None Drug Abuse: None Family History: Reviewed & Not Pertinent Patient has suicidal ideation: No Patient has homicidal ideation: No - Past Medical History Cardiac Medical History: Reports: Hx Hypercholesterolemia Neurological Medical History: Reports: Hx Cerebrovascular Accident - TIA. Renal/ Medical History: Denies: Hx Peritoneal Dialysis Past Surgical History: Reports: Hx Cholecystectomy, Hx Hysterectomy Review of Systems - Review of Systems -: Yes All other systems reviewed and negative Physical Exam - Vital signs Vitals: Temp Pulse Resp BP Pulse Ox 99.1 F 72 18 119/59 L 91 L 03/24/18 12:03 03/24/18 12:03 03/24/18 12:03 03/24/18 12:03 03/24/18 12:03 - Notes Notes: PHYSICAL EXAMINATION: GENERAL: Well-appearing, well-nourished and in no acute distress. HEAD: Atraumatic, normocephalic. EYES: Pupils equal round and reactive to light, extraocular movements intact, sclera anicteric, conjunctiva are normal. ENT: Nares patent and without discharge. oropharynx clear without exudates. No tonsilar hypertrophy or erythema. Moist mucous membranes. NECK: Normal range of motion, supple without lymphadenopathy LUNGS: Breath sounds clear to auscultation bilaterally and equal. No wheezes rales or rhonchi. HEART: Regular rate and rhythm without murmurs, rubs, gallops. ABDOMEN: Soft, nontender, nondistended abdomen. No guarding, no rebound. No masses appreciated. Normal bowel sounds present. No CVA tenderness bilaterally. Pelvic (performed by Ning CARPIO): no blood in the vaginal canal. Rectal (performed by Ning CARPIO): brown stool with red flecks noted. Musculoskeletal: FROM to passive/active. Strength 5+/5. Extremities: No cyanosis, clubbing, or edema b/l. Peripheral pulses 2+. Capillary refill less than 3 seconds. NEUROLOGICAL: Cranial nerves grossly intact. Normal speech, normal gait. Normal sensory, motor exams PSYCH: Normal mood, normal affect. SKIN: tinea cruris b/l inguinal areas. No purulent. Course - Re-evaluation Re-evalutation: 03/24/18 15:21 Patient is an afebrile, well-hydrated, 87-year-old female who presents emerged red blood in her stool, suspect lower GI bleed. Vitals are acceptable without significant tachycardia, tachypnea, hypotension. Patient has been borderline hypoxic, but is near her baseline. She has no other cardia pulmonary symptoms. She is nontoxic-appearing and is tolerating p.o. without difficulty. Patient is currently hemodynamically stable with a stable H&H. UA unremarkable. See CMP, with mild hypokalemia. I did speak with ESTEBAN [place], who would like the patient brought in for observation and he will be consulting. I did speak with our hospitalist, Dr. Miller, who accepted patient for admit to telemetry. Patient and family in agreement with plan. - Vital Signs Vital signs: Temp Pulse Resp BP Pulse Ox 99.1 F 72 18 119/59 L 91 L 03/24/18 12:03 03/24/18 12:03 03/24/18 12:03 03/24/18 12:03 03/24/18 12:03 - Laboratory Result Diagrams: 03/24/18 13:00 03/24/18 13:53 Laboratory results interpreted by me: 03/24/18 03/24/18 03/24/18 13:00 13:00 13:53 RDW 16.1 H PT 18.8 H APTT 45.3 H Potassium 3.1 L Chloride 95 L Carbon Dioxide 36 H BUN 31 H Est GFR ( Amer) 59 L Est GFR (Non-Af Amer) 49 L Total Protein 5.5 L Albumin 3.1 L Procedures - Pelvic Exam Pelvic exam Time completed: 14:05 - performed by Ning CARPIO Cultures obtained: No Wet prep obtained: No Bimanual exam performed: No Discharge - Discharge Clinical Impression: Rectal bleeding, Weakness, Hypoxemia Condition: Stable Disposition: ADMITTED INPATIENT Admitting Provider: Hospitalist - Dr. Miller Unit Admitted: Telemetry
[2018-03-24 14:21] LABS: ALANINE AMINOTRANSFERASE 27 U/L (9-52); ALBUMIN 3.1 g/dL (3.5-5.0); ALKALINE PHOSPHATASE 77 U/L (38-126); ANION GAP 8 (5-19); ASPARTATE AMINO TRANSFERASE 18 U/L (14-36); BILIRUBIN,DIRECT 0.3 mg/dL (0.0-0.4); BILIRUBIN,TOTAL 0.4 mg/dL (0.2-1.3); BLOOD UREA NITROGEN 31 mg/dL (7-20); CALCIUM 9.1 mg/dL (8.4-10.2); CARBON DIOXIDE 36 mmol/L (22-30); CHLORIDE 95 mmol/L (98-107); GLUCOSE 95 mg/dL (75-110); POTASSIUM 3.1 mmol/L (3.6-5.0); SODIUM 138.7 mmol/L (137-145); TOTAL PROTEIN 5.5 g/dL (6.3-8.2)
[2018-03-24] MEDS ORDERED: POTASSIUM CHLORIDE 10 MEQ CAPSULE.ER PO ONE (15:23)
[2018-03-24] MEDS ORDERED: ONDANSETRON HCL INJ/PF 4 MG/2 ML SDV IV PRN (15:50)
[2018-03-24] MEDS ORDERED: NORMAL SALINE 250 ML IV PRN (15:59)
--- NOTE | 2018-03-24 16:20 | PDOC H&P ---
History of Present Illness Admission Date/PCP: 03/24/18 15:43 Patient complains of: Blood in the stool History of Present Illness: MICKEY VASQUEZ is a 87 year old female with history of atrial fibrillation on Eliquis, high blood pressure, anxiety, depression, no history of congestive heart failure brought in by family members after noticing bright colored blood in the stool for the last 3 days. She has this problem on and off but for the last 3 days she is having the loose stools in association with heavy bright colored blood in the stool. In the emergency room the workup was done and patient was found to be in A. fib with RVR and hemoglobin is 12.6 the case was discussed with Dr. Hou chief engineer research he is going to see the patient tomorrow for further evaluation. medical consult was called for possible admission to the telemetry. I went to talk to the son and the patient, patient is alert and awake oriented not in distress denies any complaints at all for the last 3-4 days noticed bright colored blood in the stool not associated with ab dominal pain no nausea no vomiting no constipation but she is having the loose stools blood . Denies any headaches dizzy spells denies any falls. No fever no cough no cold no chest pains. Patient wants to be full code. Past Medical History Cardiac Medical History: Reports: Hyperlipidema Endocrine Medical History: Reports: Obesity Malignancy Medical History: Reports: Renal (Kidney) Cancer Musculoskeltal Medical History: Reports: Arthritis Past Surgical History Past Surgical History: Reports: Cholecystectomy, Hysterectomy, Orthopedic Faraz ariella Social History Smoking Status: Never Smoker Frequency of Alcohol Use: None Hx Recreational Drug Use: No Drugs: None Hx Prescription Drug Abuse: No - Advance Directive Resuscitation Status: Full Code Family History Family History: Reviewed & Not Pertinent Parental Family History Reviewed: Yes Children Family History Reviewed: Yes Sibling(s) Family History Reviewed.: Yes Medication/Allergy Allergies/Adverse Reactions: acetaminophen [From Darvocet-N 100] Adverse Reaction (Unknown, Verified 03/24/18 12:00) cyclobenzaprine HCl [From Flexeril] Adverse Reaction (Unknown, Verified 03/24/18 12:00) etodolac [From Lodine] Adverse Reaction (Unknown, Verified 03/24/18 12:00) propoxyphene napsylate [From Darvocet-N 100] Adverse Reaction (Unknown, Verified 03/24/18 12:00) sulfamethoxazole [From Bactrim] Adverse Reaction (Unknown, Verified 03/24/18 12:00) trimethoprim [From Bactrim] Adverse Reaction (Unknown, Verified 03/24/18 12:00) Review of Systems Constitutional: ABSENT: fever(s), headache(s) Eyes: ABSENT: visual disturbances Ears: ABSENT: hearing changes Nose, Mouth, and Throat: ABSENT: mouth pain, sore throat Respiratory: ABSENT: dyspnea, hemoptysis Gastrointestinal: PRESENT: diarrhea, other - bright colored blood in stool. Musculoskeletal: ABSENT: joint swelling Integumentary: ABSENT: rash, wounds Neurological: ABSENT: abnormal gait, abnormal speech, confusion, dizziness, focal weakness, syncope Psychiatric: ABSENT: anxiety, depression, homidical ideation, suicidal ideation Physical Exam Vital Signs: Temp Pulse Resp BP Pulse Ox 99.1 F 72 18 119/59 L 91 L 03/24/18 12:03 03/24/18 12:03 03/24/18 12:03 03/24/18 12:03 03/24/18 12:03 Intake & Output 03/23/18 03/24/18 03/25/18 06:59 06:59 06:59 Weight 101.6 kg General appearance: PRESENT: no acute distress Head exam: PRESENT: atraumatic Eye exam: PRESENT: PERRLA Mouth exam: PRESENT: moist Neck exam: ABSENT: carotid bruit, JVD, lymphadenopathy, thyromegaly Respiratory exam: PRESENT: clear to auscultation brianne. ABSENT: rales, rhonchi, wheezes Cardiovascular exam: PRESENT: irregular rhythm, systolic murmur, tachycardia GI/Abdominal exam: PRESENT: normal bowel sounds, soft. ABSENT: distended, guarding, mass, organolmegaly, rebound, tenderness Neurological exam: PRESENT: alert, awake, oriented to person, oriented to place, oriented to time, oriented to situation, CN II-XII grossly intact. ABSENT: motor sensory deficit Psychiatric exam: PRESENT: appropriate affect, normal mood. ABSENT: homicidal ideation, suicidal ideation Results Laboratory Results: 03/24/18 13:00 03/24/18 13:53 03/24/18 03/24/18 03/24/18 13:00 13:00 13:53 WBC 9.0 RBC 4.33 Hgb 12.6 Hct 37.4 MCV 86 MCH 29.1 MCHC 33.8 RDW 16.1 H Plt Count 388 Seg Neutrophils % 58.3 Lymphocytes % 27.9 Monocytes % 11.3 Eosinophils % 2.4 Basophils % 0.1 Absolute Neutrophils 5.3 Absolute Lymphocytes 2.5 Absolute Monocytes 1.0 Absolute Eosinophils 0.2 Absolute Basophils 0.0 Sodium Cancelled 138.7 Potassium Cancelled 3.1 L Chloride Cancelled 95 L Carbon Dioxide Cancelled 36 H Anion Gap Cancelled 8 BUN Cancelled 31 H Creatinine Cancelled 1.06 Est GFR ( Amer) Cancelled 59 L Est GFR (Non-Af Amer) Cancelled 49 L Glucose Cancelled 95 Calcium Cancelled 9.1 Total Bilirubin Cancelled 0.4 AST Cancelled 18 ALT Cancelled 27 Alkaline Phosphatase Cancelled 77 Total Protein Cancelled 5.5 L Albumin Cancelled 3.1 L Assessment & Plan - Diagnosis (1) Rectal bleeding Is this a current diagnosis for this admission?: Yes Plan: 03/24/2018 plan is to admit the patient as inpatient in telemetry. Consultation with Dr. Hou was placed, consultation with Dr. Zarate was placed. Going to keep the patient n.p.o. from midnight. Eliquis will be on hold. Plan to restart her home medications. Going to type and crossmatch 1 unit and hold 1 unit of prbc for now. Plan to do the regular CBC on daily basis. Family wants her to be full code. Placed on GI prophylaxis famotidine 20 mg twice a day. She was placed on SCDs no pharmacologic prophylaxis because of active bleeding. Discussed the advantages and disadvantages of withholding Eliquis. Son understood verbalize response. He prefers to her mom on Eliquis to prevent further strokes in the future. (2) Atrial fibrillation Qualifiers: Atrial fibrillation type: chronic Qualified Code(s): I48.2 - Chronic atrial fibrillation Is this a current diagnosis for this admission?: Yes Plan: 03/24/2018-patient has chronic history of atrial fibrillation and Eliquis. Admitted for lower GI bleed. Eliquis will be held for today. We are going to keep her n.p.o. from midnight for possible colonoscopy tomorrow. Explained to the son, we may have to use heparin iv as a bridge while the patient is off Eliquis. But the son to does not want her mom to be on heparin drip. Patient is on flecainide and diltiazem at home plan is to resume those medications during the hospital stay. (3) HTN (hypertension) Is this a current diagnosis for this admission?: Yes Plan: 03/24/2018 patient has history of hypertension blood pressure today is 119/60 stable. Plan is to resume her home medications. (4) Depression Is this a current diagnosis for this admission?: Yes Plan: 03/24/2018 patient has history of depression on duloxetine. Plan is to resume the medications while she was in the hospital. - Time Time Spent: 50 to 70 Minutes Medications reviewed and adjusted accordingly: Yes Anticipated discharge: Home
[2018-03-24 16:22] LABS: APPEARANCE,URINE CLEAR; BILIRUBIN,URINE NEGATIVE (NEGATIVE); COLOR,URINE STRAW; GLUCOSE, URINE NEGATIVE (NEGATIVE); KETONES,URINE NEGATIVE (NEGATIVE); LEUKOCYTE ESTERASE,URINE NEGATIVE (NEGATIVE); NITRITE,URINE NEGATIVE (NEGATIVE); PROTEIN,URINE NEGATIVE (NEGATIVE); URINE SPECIFIC GRAVITY 1.006; UROBILINOGEN,URINE NEGATIVE mg/dL (<2.0)
--- NOTE | 2018-03-24 16:41 | RADIOLOGY REPORT (SQ) ---
EXAM DESCRIPTION: CHEST 2 VIEWS COMPLETED DATE/TIME: 03/24/2018 4:26 pm REASON FOR STUDY: protocol COMPARISON: 03/02/2018 EXAM PARAMETERS: NUMBER OF VIEWS: two views TECHNIQUE: Digital Frontal and Lateral radiographic views of the chest acquired. RADIATION DOSE: NA LIMITATIONS: none FINDINGS: LUNGS AND PLEURA: No opacities, masses or pneumothorax. No pleural effusion. MEDIASTINUM AND HILAR STRUCTURES: No masses or contour abnormalities. HEART AND VASCULAR STRUCTURES: Stable Enlarged cardiac silhouette. Tortuous atherosclerotic aorta. BONES: No acute findings. HARDWARE: None in the chest. OTHER: No other significant finding. IMPRESSION: No evidence of acute cardiopulmonary process. TECHNICAL DOCUMENTATION: JOB ID: [id number] [employer]- All Rights Reserved Reading location - IP/workstation name: [email or web address]
--- NOTE | 2018-03-24 17:21 | PDOC CONSULTATION ---
Consultation Consult Date: 03/24/18 Attending physician:: MICHELLE HARRIS Consult reason:: GI bleeding History of Present Illness Admission Date/PCP: 03/24/18 15:43 History of Present Illness: MICKEY VASQUEZ is a 87 year old female Case was discussed with the ED patient has a history of A Fib and presented with blood in stools on multiple occasions patient has a stable Hgb but needs to be admitted for observation she likely has a diverticular bleeding that is worse due to the fact that she is on Eliquis there is noted to have a discussion that patient's family does not want to stop her Eliquis however she then cannot have any procedures done since nothing therapeutic can be done also she may continue to bleed she has been typed and crossed for PRBC but transfusion is appropriately held however will have to follow on H/H, suspect that it may drop with hydration she is held NPO but again if she is not off her anticoagulation , then I am not sure having a procedure done will be useful since no therapeutic measures can be done she does have an elevated BUN to creat ratio as well ? upper GI Past Medical History Cardiac Medical History: Reports: Hyperlipidema Endocrine Medical History: Reports: Obesity Malignancy Medical History: Reports: Renal (Kidney) Cancer Musculoskeltal Medical History: Reports: Arthritis Past Surgical History Past Surgical History: Reports: Cholecystectomy, Hysterectomy, Orthopedic Surgery Social History Smoking Status: Never Smoker Frequency of Alcohol Use: None Hx Recreational Drug Use: No Drugs: None Hx Prescription Drug Abuse: No - Advance Directive Resuscitation Status: Full Code Family History Family History: Reviewed & Not Pertinent Parental Family History Reviewed: Yes Children Family History Reviewed: Unknown Sibling(s) Family History Reviewed.: Unknown Medication/Allergy Allergies/Adverse Reactions: acetaminophen [From Darvocet-N 100] Adverse Reaction (Unknown, Verified 03/24/18 12:00) cyclobenzaprine HCl [From Flexeril] Adverse Reaction (Unknown, Verified 03/24/18 12:00) etodolac [From Lodine] Adverse Reaction (Unknown, Verified 03/24/18 12:00) propoxyphene napsylate [From Darvocet-N 100] Adverse Reaction (Unknown, Verified 03/24/18 12:00) sulfamethoxazole [From Bactrim] Adverse Reaction (Unknown, Verified 03/24/18 12:00) trimethoprim [From Bactrim] Adverse Reaction (Unknown, Verified 03/24/18 12:00) Review of Systems Constitutional: ABSENT: fever(s), headache(s), night sweats, weakness Eyes: ABSENT: visual disturbances Ears: ABSENT: hearing changes Nose, Mouth, and Throat: ABSENT: mouth pain Cardiovascular: ABSENT: edema, orthropnea, palpitations Respiratory: ABSENT: dyspnea, hemoptysis Gastrointestinal: PRESENT: hematochezia. ABSENT: dysphagia Genitourinary: ABSENT: dysuria, hematuria Musculoskeletal: ABSENT: deformity, joint swelling Integumentary: ABSENT: lesions, pruritus Neurological: ABSENT: syncope, tingling, tremor(s), vertigo Endocrine: ABSENT: polydipsia, polyphagia, polyuria Hematologic/Lymphatic: ABSENT: easy bruising Physical Exam Vital Signs: Temp Pulse Resp BP Pulse Ox 99.1 F 72 18 119/59 L 91 L 03/24/18 12:03 03/24/18 12:03 03/24/18 12:03 03/24/18 12:03 03/24/18 12:03 Intake & Output 03/23/18 03/24/18 03/25/18 06:59 06:59 06:59 Weight 101.6 kg General appearance: PRESENT: no acute distress, well-developed, well-nourished Head exam: PRESENT: atraumatic, normocephalic Eye exam: PRESENT: EOMI, PERRLA. ABSENT: nystagmus, scleral icterus Mouth exam: PRESENT: moist, neck supple Throat exam: ABSENT: tonsillar exudate, tonsillogmegaly Respiratory exam: PRESENT: symmetrical, unlabored. ABSENT: tachypnea, wheezes Cardiovascular exam: PRESENT: irregular rhythm GI/Abdominal exam: PRESENT: soft. ABSENT: rebound, rigid, tenderness Extremities exam: ABSENT: joint swelling Neurological exam: PRESENT: oriented to time, oriented to situation, CN II-XII grossly intact Focused psych exam: ABSENT: restlessness Skin exam: PRESENT: normal color. ABSENT: mottled, pallor, urticaria, vesicles Results Laboratory Results: 03/24/18 13:00 03/24/18 13:53 03/24/18 03/24/18 03/24/18 13:00 13:00 13:53 WBC 9.0 RBC 4.33 Hgb 12.6 Hct 37.4 MCV 86 MCH 29.1 MCHC 33.8 RDW 16.1 H Plt Count 388 Seg Neutrophils % 58.3 Lymphocytes % 27.9 Monocytes % 11.3 Eosinophils % 2.4 Basophils % 0.1 Absolute Neutrophils 5.3 Absolute Lymphocytes 2.5 Absolute Monocytes 1.0 Absolute Eosinophils 0.2 Absolute Basophils 0.0 Sodium Cancelled 138.7 Potassium Cancelled 3.1 L Chloride Cancelled 95 L Carbon Dioxide Cancelled 36 H Anion Gap Cancelled 8 BUN Cancelled 31 H Creatinine Cancelled 1.06 Est GFR ( Amer) Cancelled 59 L Est GFR (Non-Af Amer) Cancelled 49 L Glucose Cancelled 95 Calcium Cancelled 9.1 Total Bilirubin Cancelled 0.4 AST Cancelled 18 ALT Cancelled 27 Alkaline Phosphatase Cancelled 77 Total Protein Cancelled 5.5 L Albumin Cancelled 3.1 L Urine Color Urine Appearance Urine pH Ur Specific [place] Urine Protein Urine Glucose (UA) Urine Ketones Urine Blood Urine Nitrite Ur Leukocyte Esterase Urine WBC (Auto) Urine RBC (Auto) Blood Type Antibody Screen 03/24/18 03/24/18 15:38 16:00 WBC RBC Hgb Hct MCV MCH MCHC RDW Plt Count Seg Neutrophils % Lymphocytes % Monocytes % Eosinophils % Basophils % Absolute Neutrophils Absolute Lymphocytes Absolute Monocytes Absolute Eosinophils Absolute Basophils Sodium Potassium Chloride Carbon Dioxide Anion Gap BUN Creatinine Est GFR ( Amer) Est GFR (Non-Af Amer) Glucose Calcium Total Bilirubin AST ALT Alkaline Phosphatase Total Protein Albumin Urine Color STRAW Urine Appearance CLEAR Urine pH 7.0 Ur Specific [place] 1.006 Urine Protein NEGATIVE Urine Glucose (UA) NEGATIVE Urine Ketones NEGATIVE Urine Blood NEGATIVE Urine Nitrite NEGATIVE Ur Leukocyte Esterase NEGATIVE Urine WBC (Auto) 3 Urine RBC (Auto) 1 Blood Type O POSITIVE Antibody Screen NEGATIVE 03/24/18 03/24/18 03/24/18 13:00 13:00 13:53 Creatine Kinase 21 L CK-MB (CK-2) 0.63 NT-Pro-B Natriuret Pep 209 Impressions: Chest X-Ray 03/24/18 00:00 IMPRESSION: No evidence of acute cardiopulmonary process. Assessment & Plan - Diagnosis (1) Rectal bleeding Is this a current diagnosis for this admission?: Yes Plan: she likely has a diverticular bleeding that has been made worse by the fact that she is on Eliquis. her Eliquis needs to be stopped at least temporarily since she could continue to bleed. the family does not appear to want this..... Cardiology has been consulted. however she is deconditioned and is unclear if she would be a candidate for any sort of invasive procedure given the need for a complete prep. the majority of diverticular bleeding subsides on own, however it would be recommended that her Elquis be discontinued; not stopping her anticoagulation would now be a discussion between Cardiology, Hosopitalist and the patient's family since in the event any urgent endoscopic procedures that needs to be done, it cannot take place with the patient being on anticoagulation. transfuse as necessary follow up on H/H Get old records to see if previous procedures has been performed in the past. will continue to follow as needed - Time Time Spent: 50 to 70 Minutes
[2018-03-24] MEDS: TORSEMIDE 20 MG TABLET PO SCH (18:34)
[2018-03-24] MEDS: NYSTATIN/TRIAMCIN CREAM 15 GM TP SCH ×2 (18:34→22:22)
[2018-03-24] MEDS ORDERED: FAMOTIDINE 20 MG TABLET PO SCH (22:00)
[2018-03-24] MEDS: FLECAINIDE ACETATE 100 MG TABLET PO SCH (22:16)
[2018-03-24] MEDS: ATORVASTATIN CALCIUM 20 MG TABLET PO SCH (22:16)
[2018-03-24] MEDS: FAMOTIDINE 20 MG TABLET PO SCH (22:17)
[2018-03-24] MEDS: DILTIAZEM HCL 60 MG TABLET PO SCH (22:17)
[2018-03-25 05:53] LABS: ABSOLUTE EOSINOPHILS # (AUTO) 0.2 10^3/uL (0.0-0.6); ABSOLUTE LYMPHOCYTES (AUTO) 2.2 10^3/uL (0.5-4.7); ABSOLUTE MONOCYTES (AUTO) 0.9 10^3/uL (0.1-1.4); ABSOLUTE NEUT (AUTO) 5.1 10^3/uL (1.7-8.2); BASOPHILS % (AUTO) 0.5 % (0-2); EOSINOPHILS % (AUTO) 2.6 % (0-6); HEMATOCRIT 33.4 % (36.0-47.0); HEMOGLOBIN 11.4 g/dL (12.0-15.5); LYMPHOCYTES % (AUTO) 26.5 % (13-45); MEAN CORPUSCULAR HEMOGLOBIN 29.1 pg (27.0-33.4); MEAN CORPUSCULAR HGB CONC 34.3 g/dL (32.0-36.0); MEAN CORPUSCULAR VOLUME 85 fl (80-97); MONOCYTES % (AUTO) 10.6 % (3-13); PLATELET COUNT 329 10^3/uL (150-450); RED BLOOD COUNT 3.93 10^6/uL (3.72-5.28); RED CELL DISTRIBUTION WIDTH 15.7 % (11.5-14.0); SEGMENTED NEUTROPHILS % (AUTO) 59.8 % (42-78); TOTAL CELLS COUNTED % (AUTO) 100 %; WHITE BLOOD COUNT 8.5 10^3/uL (4.0-10.5)
[2018-03-25 06:12] LABS: ALANINE AMINOTRANSFERASE 15 U/L (9-52); ALBUMIN 2.8 g/dL (3.5-5.0); ALKALINE PHOSPHATASE 70 U/L (38-126); ANION GAP 10 (5-19); ASPARTATE AMINO TRANSFERASE 18 U/L (14-36); BILIRUBIN,DIRECT 0.2 mg/dL (0.0-0.4); BILIRUBIN,TOTAL 0.4 mg/dL (0.2-1.3); BLOOD UREA NITROGEN 29 mg/dL (7-20); CALCIUM 8.8 mg/dL (8.4-10.2); CARBON DIOXIDE 35 mmol/L (22-30); CHLORIDE 94 mmol/L (98-107); CREATINE KINASE 25 U/L (30-135); GLUCOSE 101 mg/dL (75-110); SODIUM 138.7 mmol/L (137-145); TOTAL PROTEIN 5.1 g/dL (6.3-8.2)
[2018-03-25 06:18] LABS: POTASSIUM 2.9 mmol/L (3.6-5.0)
[2018-03-25] MEDS: POTASSIUM CHLORIDE 20 MEQ/50 ML RTU IV SCH ×2 (08:12→10:55)
[2018-03-25] MEDS ORDERED: DULOXETINE HCL 30 MG CAPSULE.DR PO SCH (10:00)
[2018-03-25] MEDS: FLECAINIDE ACETATE 100 MG TABLET PO SCH ×2 (10:16→21:25)
[2018-03-25] MEDS: DILTIAZEM HCL 60 MG TABLET PO SCH ×2 (10:16→21:24)
[2018-03-25] MEDS: TORSEMIDE 20 MG TABLET PO SCH (10:17)
[2018-03-25] MEDS: FLUCONAZOLE 100 MG TABLET PO SCH (10:18)
[2018-03-25] MEDS: NYSTATIN/TRIAMCIN CREAM 15 GM TP SCH ×3 (10:19→17:58)
[2018-03-25] MEDS ORDERED: TRAMADOL HCL 50 MG TABLET PO PRN (12:19)
[2018-03-25] MEDS ORDERED: (PENDING PHARMACY ID) (Torsemide [Demadex 10 Mg Tablet] 10 MG) PO SCH (12:30)
[2018-03-25] MEDS ORDERED: HEPARIN SODIUM,PORCINE/D5W 25,000 UNIT/250 ML RTUINJ IV PRN (12:50)
--- NOTE | 2018-03-25 13:31 | PDOC PROGRESS REPORT ---
Subjective Progress Note for:: 03/25/18 Subjective:: 87 year old female with history of atrial fibrillation on Eliquis, high blood pressure, anxiety, depression, no history of congestive heart failure brought in by family members after noticing bright colored blood in the stool for the last 3 days. She has this problem on and off but for the last 3 days she is having the loose stools in association with heavy bright colored blood in the stool. In the emergency room the workup was done and patient was found to be in A. fib with RVR and hemoglobin is 12.6 the case was discussed with Dr. Hou rn integrated he is going to see the patient tomorrow for further evaluation. medical consult was called for possible admission to the telemetry. I went to talk to the son and the patient, patient is alert and awake oriented not in distress denies any complaints at all for the last 3-4 days noticed bright colored blood in the stool not associated with abdominal pain no nausea no vomiting no constipation but she is having the loose stools blood . Denies any headaches dizzy spells denies any falls. No fever no cough no cold no chest pains. Patient wants to be full code. 03/[id number]-old female with history of atrial fibrillation on Eliquis admitted for lower GI bleed. Passing bright colored blood in the stool. No acute events in the last 24 hours. Hemoglobin on admission is 12.6 today it is 11.4. Consultation with cardiology and GI was done. Dr. Hou wants to hold Eliquis for possible colonoscopy. Patient is going to be placed on heparin bridge. Heparin is going to be stopped 6 hours prior to the procedure. Reason For Visit: LOWER GI BLEED Physical Exam Vital Signs: Temp Pulse Resp BP Pulse Ox 98.4 F 62 20 111/46 L 96 03/25/18 07:38 03/25/18 07:38 03/25/18 07:38 03/25/18 07:38 03/25/18 07:38 Intake & Output 03/24/18 03/25/18 03/26/18 06:59 06:59 06:59 Intake Total 120 50 Output Total 1550 Balance -1430 50 Weight 102 kg General appearance: PRESENT: no acute distress Head exam: PRESENT: atraumatic Eye exam: PRESENT: PERRLA Neck exam: ABSENT: carotid bruit, JVD, lymphadenopathy, thyromegaly Respiratory exam: PRESENT: decreased breath sounds Cardiovascular exam: PRESENT: irregular rhythm, systolic murmur, tachycardia GI/Abdominal exam: PRESENT: normal bowel sounds, soft. ABSENT: distended, guarding, mass, organolmegaly, rebound, tenderness Extremities exam: PRESENT: full ROM. ABSENT: calf tenderness, clubbing, pedal edema Neurological exam: PRESENT: alert, awake, oriented to person, oriented to place, oriented to time, oriented to situation, CN II-XII grossly intact. ABSENT: motor sensory deficit Psychiatric exam: PRESENT: appropriate affect, normal mood. ABSENT: homicidal ideation, suicidal ideation Results Laboratory Results: 03/25/18 04:44 03/25/18 04:18 03/24/18 03/24/18 03/24/18 13:53 15:38 16:00 WBC RBC Hgb Hct MCV MCH MCHC RDW Plt Count Seg Neutrophils % Lymphocytes % Monocytes % Eosinophils % Basophils % Absolute Neutrophils Absolute Lymphocytes Absolute Monocytes Absolute Eosinophils Absolute Basophils Sodium 138.7 Potassium 3.1 L Chloride 95 L Carbon Dioxide 36 H Anion Gap 8 BUN 31 H Creatinine 1.06 Est GFR ( Amer) 59 L Est GFR (Non-Af Amer) 49 L Glucose 95 Calcium 9.1 Magnesium Total Bilirubin 0.4 AST 18 ALT 27 Alkaline Phosphatase 77 Total Protein 5.5 L Albumin 3.1 L TSH Urine Color STRAW Urine Appearance CLEAR Urine pH 7.0 Ur Specific [place] 1.006 Urine Protein NEGATIVE Urine Glucose (UA) NEGATIVE Urine Ketones NEGATIVE Urine Blood NEGATIVE Urine Nitrite NEGATIVE Ur Leukocyte Esterase NEGATIVE Urine WBC (Auto) 3 Urine RBC (Auto) 1 Blood Type O POSITIVE Antibody Screen NEGATIVE 03/25/18 03/25/18 03/25/18 04:18 04:18 04:44 WBC 8.5 RBC 3.93 Hgb 11.4 L Hct 33.4 L MCV 85 MCH 29.1 MCHC 34.3 RDW 15.7 H Plt Count 329 Seg Neutrophils % 59.8 Lymphocytes % 26.5 Monocytes % 10.6 Eosinophils % 2.6 Basophils % 0.5 Absolute Neutrophils 5.1 Absolute Lymphocytes 2.2 Absolute Monocytes 0.9 Absolute Eosinophils 0.2 Absolute Basophils 0.0 Sodium 138.7 Potassium 2.9 L* Chloride 94 L Carbon Dioxide 35 H Anion Gap 10 BUN 29 H Creatinine 1.05 Est GFR ( Amer) > 60 Est GFR (Non-Af Amer) 50 L Glucose 101 Calcium 8.8 Magnesium 1.7 Total Bilirubin 0.4 AST 18 ALT 15 Alkaline Phosphatase 70 Total Protein 5.1 L Albumin 2.8 L TSH 2.70 Urine Color Urine Appearance Urine pH Ur Specific [place] Urine Protein Urine Glucose (UA) Urine Ketones Urine Blood Urine Nitrite Ur Leukocyte Esterase Urine WBC (Auto) Urine RBC (Auto) Blood Type Antibody Screen 03/24/18 03/24/18 03/24/18 13:00 13:00 13:53 Creatine Kinase 21 L CK-MB (CK-2) 0.63 NT-Pro-B Natriuret Pep 209 03/24/18 03/24/18 03/25/18 21:46 21:46 04:18 Creatine Kinase 32 25 L CK-MB (CK-2) 1.20 NT-Pro-B Natriuret Pep 03/25/18 04:18 Creatine Kinase CK-MB (CK-2) 0.96 NT-Pro-B Natriuret Pep Impressions: Chest X-Ray 03/24/18 00:00 IMPRESSION: No evidence of acute cardiopulmonary process. Assessment & Plan - Diagnosis (1) Rectal bleeding Is this a current diagnosis for this admission?: Yes Plan: 03/24/2018 plan is to admit the patient as inpatient in telemetry. Consultation with Dr. Hou was placed, consultation with Dr. Zarate was placed. Going to keep the patient n.p.o. from midnight. Eliquis will be on hold. Plan to restart her home medications. Going to type and crossmatch 1 unit and hold 1 unit of prbc for now. Plan to do the regular CBC on daily basis. Family wants her to be full code. Placed on GI prophylaxis famotidine 20 mg twice a day. She was placed on SCDs no pharmacologic prophylaxis because of active bleeding. Discussed the advantages and disadvantages of withholding Eliquis. Son understood verbalize response. He prefers to her mom on Eliquis to prevent further strokes in the future. 03/25/2018-patient with history of atrial fibrillation on Eliquis admitted for rectal bleeding. GI consult was done cardiology consult was done. Be going to stop Eliquis and place the patient on heparin protocol in preparation for possible EGD or colonoscopy. Plan is to hold the heparin drip was 6 hours prior to the procedure. Latest hemoglobin is 11.4. 1 unit of PRBC on hold. (2) Atrial fibrillation Qualifiers: Atrial fibrillation type: chronic Qualified Code(s): I48.2 - Chronic atrial fibrillation Is this a current diagnosis for this admission?: Yes Plan: 03/24/2018-patient has chronic history of atrial fibrillation and Eliquis. Admitted for lower GI bleed. Eliquis will be held for today. We are going to k eep her n.p.o. from midnight for possible colonoscopy tomorrow. Explained to the son, we may have to use heparin iv as a bridge while the patient is off Eliquis. But the son to does not want her mom to be on heparin drip. Patient is on flecainide and diltiazem at home plan is to resume those medications during the hospital stay. 03/25/2018-Eliquis was discontinued for atrial fibrillation and patient is on heparin drip. Plan is to continue the present management. (3) HTN (hypertension) Is this a current diagnosis for this admission?: Yes Plan: 03/24/2018 patient has history of hypertension blood pressure today is 119/60 s table. Plan is to resume her home medications. 03/25/2018-patient blood pressure today is 111/46. Stable. (4) Depression Is this a current diagnosis for this admission?: Yes Plan: 03/24/2018 patient has history of depression on duloxetine. Plan is to resume the medications while she was in the hospital. 03/25/2018-patient has history of depression and Cymbalta at home. Which was resumed during this hospital stay. - Time Time Spent with patient: 15-24 minutes Anticipated discharge: Home
[2018-03-25] MEDS: POTASSI CL 20 MEQ/50 ML RIDER 20 MEQ/50 ML RTUPB IV SCH ×4 (13:48→21:24)
[2018-03-25 13:53] LABS: ABSOLUTE EOSINOPHILS # (AUTO) 0.1 10^3/uL (0.0-0.6); ABSOLUTE LYMPHOCYTES (AUTO) 1.8 10^3/uL (0.5-4.7); ABSOLUTE MONOCYTES (AUTO) 1.1 10^3/uL (0.1-1.4); ABSOLUTE NEUT (AUTO) 6.7 10^3/uL (1.7-8.2); BASOPHILS % (AUTO) 0.4 % (0-2); EOSINOPHILS % (AUTO) 0.8 % (0-6); HEMATOCRIT 35.5 % (36.0-47.0); HEMOGLOBIN 11.8 g/dL (12.0-15.5); LYMPHOCYTES % (AUTO) 18.9 % (13-45); MEAN CORPUSCULAR HEMOGLOBIN 28.5 pg (27.0-33.4); MEAN CORPUSCULAR HGB CONC 33.3 g/dL (32.0-36.0); MEAN CORPUSCULAR VOLUME 86 fl (80-97); MONOCYTES % (AUTO) 10.9 % (3-13); PLATELET COUNT 337 10^3/uL (150-450); RED BLOOD COUNT 4.15 10^6/uL (3.72-5.28); RED CELL DISTRIBUTION WIDTH 15.6 % (11.5-14.0); TOTAL CELLS COUNTED % (AUTO) 100 %; WHITE BLOOD COUNT 9.8 10^3/uL (4.0-10.5)
[2018-03-25 13:57] LABS: INTERNATIONAL RATION (INR) 1.14; PROTHROMBIN TIME 15.2 SEC (11.4-15.4)
[2018-03-25 13:58] LABS: PARTIAL THROMBOPLASTIN TIME 40.4 SEC (23.5-35.8)
[2018-03-25] MEDS: BUPROPION HCL 75 MG TABLET PO SCH ×2 (14:29→21:25)
[2018-03-25] MEDS ORDERED: HEPARIN SOD (PORCINE) 1,000 UNIT/ML 10 ML VIAL IV PRN (15:00)
--- NOTE | 2018-03-25 15:21 | PDOC PROGRESS REPORT ---
Subjective Progress Note for:: 03/25/18 Subjective:: patient has had her ELiquis discontinued with plan for heparin bridge will need at least 48 hours of stoppage so her procedure will be planned for Friday will start her prep tomorrow patient to be on heparin, will turn off 6 hours prior to her procedure patient has a slight drop of her Hgb , but nothing significant Reason For Visit: LOWER GI BLEED Physical Exam Vital Signs: Temp Pulse Resp BP Pulse Ox 98.4 F 62 20 111/46 L 96 03/25/18 07:38 03/25/18 07:38 03/25/18 07:38 03/25/18 07:38 03/25/18 07:38 Intake & Output 03/24/18 03/25/18 03/26/18 06:59 06:59 06:59 Intake Total 120 50 Output Total 1550 Balance -1430 50 Weight 102 kg General appearance: PRESENT: no acute distress, well-developed, well-nourished Head exam: PRESENT: atraumatic, normocephalic Eye exam: PRESENT: EOMI, PERRLA. ABSENT: scleral icterus Mouth exam: PRESENT: moist, neck supple Throat exam: ABSENT: tonsillar exudate, tonsillogmegaly Neck exam: ABSENT: meningismus, tenderness Respiratory exam: PRESENT: unlabored. ABSENT: symmetrical, tachypnea, wheezes Cardiovascular exam: PRESENT: irregular rhythm GI/Abdominal exam: PRESENT: soft. ABSENT: rebound, rigid, tenderness Extremities exam: ABSENT: joint swelling, pedal edema Neurological exam: PRESENT: CN II-XII grossly intact Focused psych exam: ABSENT: restlessness Skin exam: PRESENT: normal color. ABSENT: mottled, pallor, urticaria, vesicles Results Laboratory Results: 03/25/18 13:27 03/25/18 04:18 03/24/18 03/24/18 03/25/18 15:38 16:00 04:18 WBC RBC Hgb Hct MCV MCH MCHC RDW Plt Count Seg Neutrophils % Lymphocytes % Monocytes % Eosinophils % Basophils % Absolute Neutrophils Absolute Lymphocytes Absolute Monocytes Absolute Eosinophils Absolute Basophils Sodium 138.7 Potassium 2.9 L* Chloride 94 L Carbon Dioxide 35 H Anion Gap 10 BUN 29 H Creatinine 1.05 Est GFR ( Amer) > 60 Est GFR (Non-Af Amer) 50 L Glucose 101 Calcium 8.8 Magnesium 1.7 Total Bilirubin 0.4 AST 18 ALT 15 Alkaline Phosphatase 70 Total Protein 5.1 L Albumin 2.8 L TSH Urine Color STRAW Urine Appearance CLEAR Urine pH 7.0 Ur Specific [place] 1.006 Urine Protein NEGATIVE Urine Glucose (UA) NEGATIVE Urine Ketones NEGATIVE Urine Blood NEGATIVE Urine Nitrite NEGATIVE Ur Leukocyte Esterase NEGATIVE Urine WBC (Auto) 3 Urine RBC (Auto) 1 Blood Type O POSITIVE Antibody Screen NEGATIVE 03/25/18 03/25/18 03/25/18 04:18 04:44 13:27 WBC 8.5 9.8 RBC 3.93 4.15 Hgb 11.4 L 11.8 L Hct 33.4 L 35.5 L MCV 85 86 MCH 29.1 28.5 MCHC 34.3 33.3 RDW 15.7 H 15.6 H Plt Count 329 337 Seg Neutrophils % 59.8 69.0 Lymphocytes % 26.5 18.9 Monocytes % 10.6 10.9 Eosinophils % 2.6 0.8 Basophils % 0.5 0.4 Absolute Neutrophils 5.1 6.7 Absolute Lymphocytes 2.2 1.8 Absolute Monocytes 0.9 1.1 Absolute Eosinophils 0.2 0.1 Absolute Basophils 0.0 0.0 Sodium Potassium Chloride Carbon Dioxide Anion Gap BUN Creatinine Est GFR ( Amer) Est GFR (Non-Af Amer) Glucose Calcium Magnesium Total Bilirubin AST ALT Alkaline Phosphatase Total Protein Albumin TSH 2.70 Urine Color Urine Appearance Urine pH Ur Specific [place] Urine Protein Urine Glucose (UA) Urine Ketones Urine Blood Urine Nitrite Ur Leukocyte Esterase Urine WBC (Auto) Urine RBC (Auto) Blood Type Antibody Screen 03/24/18 03/24/18 03/24/18 13:00 13:00 13:53 Creatine Kinase 21 L CK-MB (CK-2) 0.63 NT-Pro-B Natriuret Pep 209 03/24/18 03/24/18 03/25/18 21:46 21:46 04:18 Creatine Kinase 32 25 L CK-MB (CK-2) 1.20 NT-Pro-B Natriuret Pep 03/25/18 04:18 Creatine Kinase CK-MB (CK-2) 0.96 NT-Pro-B Natriuret Pep Impressions: Chest X-Ray 03/24/18 00:00 IMPRESSION: No evidence of acute cardiopulmonary process. Assessment & Plan - Diagnosis (1) Rectal bleeding Is this a current diagnosis for this admission?: Yes Plan: Eliquis has been discontinued on a heparin drip will need at least 48 hours prior to proceeding will plan on procedures to be done on Friday patient to have prep tomorrow will have both EGD and colonoscopy to have a complete GI exam further recommendations to follow - Time Time Spent with patient: 15-24 minutes
[2018-03-25] MEDS: DULOXETINE HCL 30 MG CAPSULE.DR PO SCH (17:58)
[2018-03-25] MEDS ORDERED: (PENDING PHARMACY ID) (Diltiazem Hcl [Cardizem] 120 MG) PO SCH (18:00)
[2018-03-25 19:51] LABS: APPEARANCE,URINE CLEAR; BILIRUBIN,URINE NEGATIVE (NEGATIVE); COLOR,URINE YELLOW; GLUCOSE, URINE NEGATIVE (NEGATIVE); KETONES,URINE NEGATIVE (NEGATIVE); LEUKOCYTE ESTERASE,URINE NEGATIVE (NEGATIVE); NITRITE,URINE NEGATIVE (NEGATIVE); PROTEIN,URINE NEGATIVE (NEGATIVE); URINE SPECIFIC GRAVITY 1.009; UROBILINOGEN,URINE NEGATIVE mg/dL (<2.0)
[2018-03-25] MEDS: ATORVASTATIN CALCIUM 20 MG TABLET PO SCH (21:25)
[2018-03-25] MEDS: MORPHINE SULFATE SR 30 MG TABLET PO SCH (21:25)
[2018-03-25] MEDS: FAMOTIDINE 20 MG TABLET PO SCH (21:25)
[2018-03-25] MEDS ORDERED: (PENDING PHARMACY ID) (Morphine Sulfate [Morphine Sulfate Er] 30 MG) PO SCH (22:00)
[2018-03-25] MEDS ORDERED: FLECAINIDE ACETATE 100 MG TABLET PO SCH (22:00)
--- NOTE | 2018-03-25 23:26 | PDOC CONSULTATION ---
Consultation-Blank Consultation: CARDIOLOGY CONSULTATION by Dr. Veronica Zarate on 03/25/2018. Patient seen at 10 AM on 03/25/2018. REASON FOR CONSULTATION: Need for stopping of Eliquis for a GI workup of the patient's GI bleed, but refused by the son to stop the patient's Eliquis. Hence cardiology input requested. HISTORY PRESENT ILLNESS: Patient is a 87-year-old female, with known history of hypertension, dementia, and history of atrial fibrillation, at present in sinus rhythm maintained on flecainide, and also on Eliquis. Since the past few days the patient has been having bright red blood per rectum. Without any abdominal pain or cramping in the lower abdomen. Although the bleeding is not enough to cause a drop in the hemoglobin significantly. GI has been consulted. Get a GI wants to endoscope the patient both upper and lower, and want to stop the patient's Eliquis. The patient's son is reluctant to stop the Eliquis, since he feels that the patient has had prior to TIAs, and he would rather have the patient bleed and replace it with blood transfusions, then have the patient sustained a stroke. At present the patient appears to be comfortable, although she has dementia. She denies any chest pain discomfort or shortness of breath. Monitor shows that the patient is in sinus rhythm. There is no ventricular arrhythmia seen on the monitor. PAST MEDICAL HISTORY: History of hypertension present history of hyperlipidemia present. There is no history of diabetes mellitus. No history of COPD or asthma. History of atrial fibrillation at present in sinus rhythm on flecainide. The patient also on Eliquis. Recent lower GI bleed as mentioned earlier. There is 2 prior history of TIAs. With no recurrence on the patient being on Eliquis. There is no history of thyroid disease. The patient does have dementia. There is also a history of depression. There is no history of chronic kidney disease. There is no prior history of coronary artery disease, [place] or anginal symptoms. There is no history of congestive heart failure. There is no syncope. PAST SURGICAL HISTORY: History of cholecystectomy, hysterectomy, and orthopedic surgery. SOCIAL HISTORY: She has never smoked. There is no history of EtOH abuse. FAMILY HISTORY: Is positive for hypertension. Negative for coronary coronary artery disease. No history of sudden in the family. ALLERGIES: The patient is allergic to Tylenol, Flexeril load 9 Darvocet-N 100 sulfa and Bactrim. DISPOSITION: The patient is a full code. Her son is her surrogate healthcare decision maker. REVIEW SYSTEMS: CONSTITUTIONAL: Denies any fever chills or rigors. HEAD: Denies headaches or head injury. EYES: No history of amblyopia diplopia. No history of neurosis fugax. EARS: No history of hearing loss. No history of tinnitus. NOSE: No history of hayfever. No history of nosebleeds. No history of nasal polyps. SKIN: No history of petechia or ecchymosis. No history of psoriasis. NO HISTORY OF ECZEMA. NO HISTORY OF PRURITUS. NO YELLOWISH DISCOLORATION OF THE SKIN. Mouth: No altered taste sensation. No bleeding from the gums. THROAT: No history of odynophagia or dysphagia. No recurrent sore throats. NECK: No history of neck pain. No swelling in the neck. No goiter. LUNGS: No history of asthma or COPD. No history of pulmonary embolism. No symptoms of upper or lower respiratory tract infections. No pleuritic chest pain. No hemoptysis. No history of sleep apnea. No history of pleuritic chest pain. CARDIAC: No history of coronary artery disease FL or anginal symptoms. History of paroxysmal atrial fibrillation. History of hypertension present history of hyperlipidemia present. No history of syncope or sudden . No history of congestive heart failure. GI: No history of GERD or peptic ulcer disease. Bright red per rectum consistent with a lower GI bleed. No abdominal pain. No history of fatty food intolerance. No history of jaundice. No altered bowel movements. No tenesmus. MUSCULOSKELETAL: Does have arthritis. No history of collagen vascular disease. RENAL: No history of chronic kidney disease. But the patient's GFR is reduced at 50 mL. This has been discussed with patient's son. No history of hematuria pyuria or dysuria. No symptoms a UTI. METABOLIC: History of hyperlipidemia present. No history of gout. The patient has morbid obesity. WARP TENSION TESTER: Prior history of TIAs. None after the patient has been on Eliquis. No definite CVA. No history of headaches migraines or seizures. PSYCHIATRIC: Patient has dementia. No history of agitation. No history of suicidal or homicidal ideation. VASCULAR: No history of cough or buttock claudication. No history of DVT. Hematological: No drop in hemoglobin in spite of the episodes of bright red per rectum. No history of bleeding diathesis. No history of clotting disorders. Note history, present and past medical, and surgical history, and review of symptoms obtained from the patient's son. Physical EXAMINATION: The patient is morbidly obese. She is in no acute distress. She is well-groomed. Selected Entries 03/25/18 07:38 Temperature 98.4 F Temperature Oral Source Pulse Rate 62 Respiratory 20 Rate Blood Pressure 111/46 L Blood Pressure 67 Mean BP Location Right Arm BP Position Supine O2 Sat by Pulse 96 Oximetry Oxygen Flow 1.50 Rate Oxygen Delivery Nasal Cannula Method HEAD: Is atraumatic normocephalic. EYES: Pupils equal round regular reactive to light accommodation. Ocular movements are normal. There is no conjunctival pallor. There is no scleral icterus. EARS: Tympanic membranes are intact. External auditory canals are clear. NOSE: There is no deviated nasal septum. There is no inflammation nasal mucous membranes. MOUTH: Mucous nares and mouth are moist. Tongue is moist. There is no bleeding from the gums. There is no ulcers in the mouth. THROAT: There is no redness of the oropharynx. There is no exudates. SKIN: There is no particular ecchymosis. There is no skin lesions or skin rashes. NECK: Is supple. There is no JVD. Carotids are equal there is no bruit. There is no lymphadenopathy. There is no goiter. There is no accessory muscle respiration use. LUNGS: Clear to auscultation percussion, without any rhonchi rales or wheezing. There is no chest wall tenderness on palpation. HEART: S1-S2 is heard. S1 is of normal intensity. There is no S3 gallop. There is systolic murmur left sternal border and the apex there is no rub. ABDOMEN: Is obese. There is no hepatosplenomegaly. Bowel sounds are well heard. There is no tender areas masses. EXTREMITIES: Femorals are deep. Femorals are diminished. Leg pulses are mildly diminished. There is no femoral bruits. There is no pedal edema. There is no DVT or cellulitis. There is no calf tenderness. WARP TENSION TESTER: The patient is conscious awake alert slightly confused but without any focal deficits. PSYCHIATRIC: The patient does not appear to be agitated or anxious. Current Medications Generic Name Dose Route Start Last Admin Trade Name Ivania PRN Reason Stop Dose Admin Ascorbic Acid 1,000 mg 03/26/18 10:00 Vitamin C 500 Mg Tablet PO 04/25/18 09:59 DAILY HAYES Atorvastatin Calcium 20 mg 03/24/18 22:00 03/25/18 21:25 Lipitor 20 Mg Tablet PO 04/23/18 21:59 20 mg QHS HAYES Administration Bupropion HCl 75 mg 03/25/18 14:00 03/25/18 21:25 Wellbutrin 75 Mg Tablet PO 04/24/18 13:59 75 mg Q8 HAYES Administration Diltiazem HCl 60 mg 03/24/18 22:00 03/25/18 21:24 Cardizem 60 Mg Tablet PO 04/23/18 21:59 60 mg Q12 HAYES Administration Duloxetine HCl 30 mg 03/25/18 18:00 03/25/18 17:58 Cymbalta 30 Mg Capsule. PO 04/24/18 17:59 30 mg QPM HAYES Administration Famotidine 20 mg 03/24/18 22:00 03/25/18 21:25 Pepcid 20 Mg Tablet PO 04/23/18 21:59 20 mg QHS HAYES Administration Flecainide Acetate 50 mg 03/24/18 22:00 03/25/18 21:25 Tambocor 100 Mg Tablet PO 04/23/18 21:59 50 mg Q12 HAYES Administration Fluconazole 100 mg 03/25/18 10:00 03/25/18 10:18 Diflucan 100 Mg Tablet PO 04/01/18 09:59 100 mg DAILY HAYES Administration Heparin Sodium (Porcine) 0 - 12,000 unit 03/25/18 15:00 Heparin Inj 1,000 Unit/Ml 10 Ml Vial IV 04/24/18 14:59 .BOLUS PER PROTOCOL PRN RESPOND TO aPTT VALUES Protocol Heparin Sodium/Dextrose 25,000 unit in 250 mls @ 0 mls/hr 03/25/18 12:50 03/25/18 23:49 Heparin Rtu 25,000 Unit/250 Ml D5w Premix IV 04/24/18 12:49 10 mls/hr CONTINUOUS PRN 10 mls/hr THIS MED IS NOT "PRN" Titration Protocol Titrate Levetiracetam 500 mg 03/26/18 10:00 Keppra 500 Mg Tablet PO 04/25/18 09:59 DAILY HAYES Morphine Sulfate 30 mg 03/25/18 22:00 03/25/18 21:25 Ms-Contin Sr 30 Mg Tablet PO 04/01/18 21:59 30 mg Q12 HAYES Administration Multivitamins 1 tab 03/26/18 10:00 Tab-A-Delgado (Multiple Vitamin) Tablet PO 04/25/18 09:59 DAILY HAYES Nystatin/Triamcinolone Acetonide 1 applic 03/24/18 18:00 03/25/18 17:58 Mycolog-Ii Cream 15 Gm TP 03/31/18 17:59 1 applic QID HAYES Administration Ondansetron HCl 4 mg 03/24/18 15:50 Zofran Inj/Pf 4 Mg/2 Ml Sdv IV 04/23/18 15:49 Q6HP PRN FOR NAUSEA/VOMITING Patient Own Medication 25 mg 03/26/18 10:00 Naloxegol Oxalate PO 04/25/18 09:59 .DAILY HAYES Torsemide 10 mg 03/27/18 10:00 Demadex 20 Mg Tablet PO 04/26/18 09:59 Q3DAYS HAYES Tramadol HCl 50 mg 03/25/18 12:19 Ultram 50 Mg Tablet PO 04/01/18 12:18 Q12HP PRN FOR PAIN Triamterene/HCTZ 1 tab 03/26/18 10:00 Maxzide Tablet PO 04/25/18 09:59 DAILY HAYES Discontinued Medications Generic Name Dose Route Start Last Admin Trade Name Freq PRN Reason Stop Dose Admin Atorvastatin Calcium 80 mg 03/26/18 10:00 Lipitor 80 Mg Tablet PO 04/25/18 09:59 DAILY HAYES Duloxetine HCl 60 mg 03/25/18 10:00 03/25/18 10:16 Cymbalta 30 Mg Capsule. PO 04/24/18 09:59 60 mg DAILY HAYES Administration Flecainide Acetate 50 mg 03/25/18 22:00 Tambocor 100 Mg Tablet PO 04/24/18 21:59 Q12 HAYES Sodium Chloride 250 mls @ 0 mls/hr 03/24/18 15:59 Nacl 0.9% 250 Ml Iv Soln IV 03/25/18 15:58 CONTINUOUS PRN AFTER EACH UNIT As Directed Potassium Chloride/Water 20 meq in 50 mls @ 25 mls/hr 03/25/18 07:15 03/25/18 12:55 Potassium Chloride Rl 20 Meq/50 Ml IV 03/25/18 11:14 Infused Q2H HAYES Infusion Potassium Chloride/Water 20 meq in 50 mls @ 25 mls/hr 03/25/18 13:30 03/25/18 21:24 Potassium Chloride Rl 20 Meq/50 Ml IV 03/25/18 21:29 25 mls/hr Q2H HAYES 25 mls/hr Administration Potassium Chloride 40 meq 03/24/18 15:23 03/24/18 16:27 Klor-Con 10 Meq Capsule Er PO 03/24/18 15:24 40 meq NOW ONE Administration Torsemide 20 mg 03/24/18 18:00 03/25/18 10:17 Demadex 20 Mg Tablet PO 04/23/18 17:59 20 mg BID HAYES Administration Current Medications Generic Name Dose Route Start Last Admin Trade Name Freq PRN Reason Stop Dose Admin Ascorbic Acid 1,000 mg 03/26/18 10:00 Vitamin C 500 Mg Tablet PO 04/25/18 09:59 DAILY HAYES Atorvastatin Calcium 20 mg 03/24/18 22:00 03/25/18 21:25 Lipitor 20 Mg Tablet PO 04/23/18 21:59 20 mg QHS HAYES Administration Bupropion HCl 75 mg 03/25/18 14:00 03/25/18 21:25 Wellbutrin 75 Mg Tablet PO 04/24/18 13:59 75 mg Q8 HAYES Administration Diltiazem HCl 60 mg 03/24/18 22:00 03/25/18 21:24 Cardizem 60 Mg Tablet PO 04/23/18 21:59 60 mg Q12 HAYES Administration Duloxetine HCl 30 mg 03/25/18 18:00 03/25/18 17:58 Cymbalta 30 Mg Capsule.Dr PO 04/24/18 17:59 30 mg QPM HAYES Administration Famotidine 20 mg 03/24/18 22:00 03/25/18 21:25 Pepcid 20 Mg Tablet PO 04/23/18 21:59 20 mg QHS HAYES Administration Flecainide Acetate 50 mg 03/24/18 22:00 03/25/18 21:25 Tambocor 100 Mg Tablet PO 04/23/18 21:59 50 mg Q12 HAYES Administration Fluconazole 100 mg 03/25/18 10:00 03/25/18 10:18 Diflucan 100 Mg Tablet PO 04/01/18 09:59 100 mg DAILY HAYES Administration Heparin Sodium (Porcine) 0 - 12,000 unit 03/25/18 15:00 Heparin Inj 1,000 Unit/Ml 10 Ml Vial IV 04/24/18 14:59 .BOLUS PER PROTOCOL PRN RESPOND TO aPTT VALUES Protocol Heparin Sodium/Dextrose 25,000 unit in 250 mls @ 0 mls/hr 03/25/18 12:50 03/25/18 23:49 Heparin Rtu 25,000 Unit/250 Ml D5w Premix IV 04/24/18 12:49 10 mls/hr CONTINUOUS PRN 10 mls/hr THIS MED IS NOT "PRN" Titration Protocol Titrate Levetiracetam 500 mg 03/26/18 10:00 Keppra 500 Mg Tablet PO 04/25/18 09:59 DAILY HAYES Morphine Sulfate 30 mg 03/25/18 22:00 03/25/18 21:25 Ms-Contin Sr 30 Mg Tablet PO 04/01/18 21:59 30 mg Q12 HAYES Administration Multivitamins 1 tab 03/26/18 10:00 Tab-A-Delgado (Multiple Vitamin) Tablet PO 04/25/18 09:59 DAILY HAYES Nystatin/Triamcinolone Acetonide 1 applic 03/24/18 18:00 03/25/18 17:58 Mycolog-Ii Cream 15 Gm TP 03/31/18 17:59 1 applic QID HAYES Administration Ondansetron HCl 4 mg 03/24/18 15:50 Zofran Inj/Pf 4 Mg/2 Ml Sdv IV 04/23/18 15:49 Q6HP PRN FOR NAUSEA/VOMITING Patient Own Medication 25 mg 03/26/18 10:00 Naloxegol Oxalate PO 04/25/18 09:59 .DAILY HAYES Torsemide 10 mg 03/27/18 10:00 Demadex 20 Mg Tablet PO 04/26/18 09:59 Q3DAYS HAYES Tramadol HCl 50 mg 03/25/18 12:19 Ultram 50 Mg Tablet PO 04/01/18 12:18 Q12HP PRN FOR PAIN Triamterene/HCTZ 1 tab 03/26/18 10:00 Maxzide Tablet PO 04/25/18 09:59 DAILY HAYES Discontinued Medications Generic Name Dose Route Start Last Admin Trade Name Freq PRN Reason Stop Dose Admin Atorvastatin Calcium 80 mg 03/26/18 10:00 Lipitor 80 Mg Tablet PO 04/25/18 09:59 DAILY HAYES Duloxetine HCl 60 mg 03/25/18 10:00 03/25/18 10:16 Cymbalta 30 Mg Capsule. PO 04/24/18 09:59 60 mg DAILY HAYES Administration Flecainide Acetate 50 mg 03/25/18 22:00 Tambocor 100 Mg Tablet PO 04/24/18 21:59 Q12 HAYES Sodium Chloride 250 mls @ 0 mls/hr 03/24/18 15:59 Nacl 0.9% 250 Ml Iv Soln IV 03/25/18 15:58 CONTINUOUS PRN AFTER EACH UNIT As Directed Potassium Chloride/Water 20 meq in 50 mls @ 25 mls/hr 03/25/18 07:15 03/25/18 12:55 Potassium Chloride Rl 20 Meq/50 Ml IV 03/25/18 11:14 Infused Q2H HAYES Infusion Potassium Chloride/Water 20 meq in 50 mls @ 25 mls/hr 03/25/18 13:30 03/25/18 21:24 Potassium Chloride Rl 20 Meq/50 Ml IV 03/25/18 21:29 25 mls/hr Q2H HAYES 25 mls/hr Administration Potassium Chloride 40 meq 03/24/18 15:23 03/24/18 16:27 Klor-Con 10 Meq Capsule Er PO 03/24/18 15:24 40 meq NOW ONE Administration Torsemide 20 mg 03/24/18 18:00 03/25/18 10:17 Demadex 20 Mg Tablet PO 04/23/18 17:59 20 mg BID HAYES Administration Current Home Medications Apixaban [Eliquis 5 mg Tablet] 5 mg PO Q12 03/24/18 [History] Ascorbic Acid [C-1000] 1,000 mg PO DAILY 03/24/18 [History] Atorvastatin Calcium [Lipitor 80 mg Tablet] 80 mg PO DAILY 03/24/18 [History] Bupropion HCl [Wellbutrin 75 mg Tablet] 75 mg PO Q8 03/24/18 [History] Diltiazem HCl [Cardizem] 120 mg PO QPM 03/24/18 [History] Duloxetine HCl [Cymbalta] 30 mg PO QPM 03/24/18 [History] Flecainide Acetate [Tambocor 100 mg Tablet] 50 mg PO Q12 03/24/18 [History] Levetiracetam [Keppra 500 mg Tablet] 500 mg PO DAILY 03/24/18 [History] Morphine Sulfate [Morphine Sulfate ER] 30 mg PO Q12 03/24/18 [History] Multivitamin [Tab-A-Delgado (Multiple Vitamin) Tablet] 1 tab PO DAILY 03/24/18 [History] Naloxegol Oxalate [Movantik 25 mg Tablet] 25 mg PO DAILY 03/24/18 [History] Torsemide [Demadex 10 mg Tablet] 10 mg PO Q3D 03/24/18 [History] Tramadol HCl [Ultram 50 mg Tablet] 50 mg PO Q12HP PRN 03/24/18 [History] Triamterene/Hydrochlorothiazid [Triamterene-Hctz 37.5-25 mg Cp] 2 cap PO DAILY 03/24/18 [History] Labs- All tests 24 hr 03/24/18 03/25/18 03/25/18 15:38 04:18 04:18 WBC RBC Hgb Hct MCV MCH MCHC RDW Plt Count Seg Neutrophils % Lymphocytes % Monocytes % Eosinophils % Basophils % Absolute Neutrophils Absolute Lymphocytes Absolute Monocytes Absolute Eosinophils Absolute Basophils PT INR APTT Sodium 138.7 Potassium 2.9 L* Chloride 94 L Carbon Dioxide 35 H Anion Gap 10 BUN 29 H Creatinine 1.05 Est GFR ( Amer) > 60 Est GFR (Non-Af Amer) 50 L Glucose 101 Calcium 8.8 Magnesium 1.7 Total Bilirubin 0.4 Direct Bilirubin 0.2 Neonat Total Bilirubin Not Reportable Neonat Direct Bilirubin Not Reportable Neonat Indirect Bili Not Reportable AST 18 ALT 15 Alkaline Phosphatase 70 Creatine Kinase 25 L CK-MB (CK-2) 0.96 Total Protein 5.1 L Albumin 2.8 L TSH Urine Color Urine Appearance Urine pH Ur Specific [place] Urine Protein Urine Glucose (UA) Urine Ketones Urine Blood Urine Nitrite Urine Bilirubin Urine Urobilinogen Ur Leukocyte Esterase Urine WBC (Auto) Urine RBC (Auto) Urine Mucus (Auto) Urine Ascorbic Acid Crossmatch See Detail 03/25/18 03/25/18 03/25/18 04:18 04:18 04:44 WBC 8.5 RBC 3.93 Hgb 11.4 L Hct 33.4 L MCV 85 MCH 29.1 MCHC 34.3 RDW 15.7 H Plt Count 329 Seg Neutrophils % 59.8 Lymphocytes % 26.5 Monocytes % 10.6 Eosinophils % 2.6 Basophils % 0.5 Absolute Neutrophils 5.1 Absolute Lymphocytes 2.2 Absolute Monocytes 0.9 Absolute Eosinophils 0.2 Absolute Basophils 0.0 PT INR APTT 43.0 H Sodium Potassium Chloride Carbon Dioxide Anion Gap BUN Creatinine Est GFR ( Amer) Est GFR (Non-Af Amer) Glucose Calcium Magnesium Total Bilirubin Direct Bilirubin Neonat Total Bilirubin Neonat Direct Bilirubin Neonat Indirect Bili AST ALT Alkaline Phosphatase Creatine Kinase CK-MB (CK-2) Total Protein Albumin TSH 2.70 Urine Color Urine Appearance Urine pH Ur Specific [place] Urine Protein Urine Glucose (UA) Urine Ketones Urine Blood Urine Nitrite Urine Bilirubin Urine Urobilinogen Ur Leukocyte Esterase Urine WBC (Auto) Urine RBC (Auto) Urine Mucus (Auto) Urine Ascorbic Acid Crossmatch 03/25/18 03/25/18 03/25/18 13:27 13:27 14:30 WBC 9.8 RBC 4.15 Hgb 11.8 L Hct 35.5 L MCV 86 MCH 28.5 MCHC 33.3 RDW 15.6 H Plt Count 337 Seg Neutrophils % 69.0 Lymphocytes % 18.9 Monocytes % 10.9 Eosinophils % 0.8 Basophils % 0.4 Absolute Neutrophils 6.7 Absolute Lymphocytes 1.8 Absolute Monocytes 1.1 Absolute Eosinophils 0.1 Absolute Basophils 0.0 PT 15.2 INR 1.14 APTT 40.4 H Sodium Potassium Chloride Carbon Dioxide Anion Gap BUN Creatinine Est GFR ( Amer) Est GFR (Non-Af Amer) Glucose Calcium Magnesium Total Bilirubin Direct Bilirubin Neonat Total Bilirubin Neonat Direct Bilirubin Neonat Indirect Bili AST ALT Alkaline Phosphatase Creatine Kinase CK-MB (CK-2) Total Protein Albumin TSH Urine Color YELLOW Urine Appearance CLEAR Urine pH 7.0 Ur Specific [place] 1.009 Urine Protein NEGATIVE Urine Glucose (UA) NEGATIVE Urine Ketones NEGATIVE Urine Blood SMALL H Urine Nitrite NEGATIVE Urine Bilirubin NEGATIVE Urine Urobilinogen NEGATIVE Ur Leukocyte Esterase NEGATIVE Urine WBC (Auto) 4 Urine RBC (Auto) 5 Urine Mucus (Auto) RARE Urine Ascorbic Acid NEGATIVE Crossmatch 03/25/18 22:14 WBC RBC Hgb Hct MCV MCH MCHC RDW Plt Count Seg Neutrophils % Lymphocytes % Monocytes % Eosinophils % Basophils % Absolute Neutrophils Absolute Lymphocytes Absolute Monocytes Absolute Eosinophils Absolute Basophils PT INR APTT 88.7 H D Sodium Potassium Chloride Carbon Dioxide Anion Gap BUN Creatinine Est GFR ( Amer) Est GFR (Non-Af Amer) Glucose Calcium Magnesium Total Bilirubin Direct Bilirubin Neonat Total Bilirubin Neonat Direct Bilirubin Neonat Indirect Bili AST ALT Alkaline Phosphatase Creatine Kinase CK-MB (CK-2) Total Protein Albumin TSH Urine Color Urine Appearance Urine pH Ur Specific [place] Urine Protein Urine Glucose (UA) Urine Ketones Urine Blood Urine Nitrite Urine Bilirubin Urine Urobilinogen Ur Leukocyte Esterase Urine WBC (Auto) Urine RBC (Auto) Urine Mucus (Auto) Urine Ascorbic Acid Crossmatch Chest X-Ray 03/24/18 00:00 IMPRESSION: No evidence of acute cardiopulmonary process. EKG I do not see one on the chart. But the monitor strip show that the patient is in sinus rhythm. We will order an EKG for the a.m IMPRESSION/RECOMMENDATION: 1. Lower GI bleed in a patient with proximal atrial fibrillation, on Eliquis. I have spoken to the son that if the is so concerned that the patient may have a TIA or CVA if Eliquis is stopped, then the other option is to place the patient on a heparin bridge, and to stop the heparin 6 hours prior to the procedure and restart the patient on Eliquis when deemed safe after the procedure. I have explained to the son that Eliquis does not abolish the occurrence of stroke 100%. He does decrease the incidence of stroke in a patient. Clearly the patient has a Mike vas 2 score of at least 6. Hence the best way is to put the patient on Lovenox bridge. This is been discussed with the patient's cardiol ogist Dr. Johansen in the [place], who agrees with the plan. The patient's son also seems to be agreeable with this. Discussed with the hospitalist. In spite of the patient's GI bleed, the hemoglobin has remained stable, without any significant drop in the hemoglobin. Will observe the hemoglobin serially. 2. Paroxysmal atrial fibrillation: At present in sinus rhythm. Continue flecainide. Continue heparin bridge. Continue Cardizem. 3. Hypertension: Continue the patient on Cardizem. 4. Hyperlipidemia. 5. Most likely patient has chronic kidney disease stage III 6. Dementia. 7 prior history of 2 TIA's Patient medications reviewed medication adjustments discussed with attending physician. Discussed management plan with other caregiving providers on the case. 60 minutes spent on the patient with more than 50% of time spent in direct patient care medical decision making is of high complexity. Will follow.
[2018-03-26] MEDS: BUPROPION HCL 75 MG TABLET PO SCH ×3 (06:00→23:04)
[2018-03-26] MEDS: NYSTATIN/TRIAMCIN CREAM 15 GM TP SCH ×5 (06:03→22:58)
[2018-03-26 06:46] LABS: ABSOLUTE BASOPHILS # (AUTO) 0.1 10^3/uL (0.0-0.2); ABSOLUTE EOSINOPHILS # (AUTO) 0.2 10^3/uL (0.0-0.6); ABSOLUTE LYMPHOCYTES (AUTO) 2.1 10^3/uL (0.5-4.7); ABSOLUTE MONOCYTES (AUTO) 0.9 10^3/uL (0.1-1.4); ABSOLUTE NEUT (AUTO) 5.1 10^3/uL (1.7-8.2); BASOPHILS % (AUTO) 0.7 % (0-2); EOSINOPHILS % (AUTO) 1.9 % (0-6); HEMATOCRIT 33.9 % (36.0-47.0); HEMOGLOBIN 11.4 g/dL (12.0-15.5); LYMPHOCYTES % (AUTO) 25.3 % (13-45); MEAN CORPUSCULAR HEMOGLOBIN 28.7 pg (27.0-33.4); MEAN CORPUSCULAR HGB CONC 33.6 g/dL (32.0-36.0); MEAN CORPUSCULAR VOLUME 85 fl (80-97); PLATELET COUNT 294 10^3/uL (150-450); RED BLOOD COUNT 3.97 10^6/uL (3.72-5.28); SEGMENTED NEUTROPHILS % (AUTO) 61.1 % (42-78); TOTAL CELLS COUNTED % (AUTO) 100 %; WHITE BLOOD COUNT 8.3 10^3/uL (4.0-10.5)
[2018-03-26 07:49] LABS: ALANINE AMINOTRANSFERASE 28 U/L (9-52); ALBUMIN 2.6 g/dL (3.5-5.0); ALKALINE PHOSPHATASE 69 U/L (38-126); ANION GAP 7 (5-19); ASPARTATE AMINO TRANSFERASE 18 U/L (14-36); BILIRUBIN,DIRECT 0.2 mg/dL (0.0-0.4); BILIRUBIN,TOTAL 0.4 mg/dL (0.2-1.3); BLOOD UREA NITROGEN 23 mg/dL (7-20); CALCIUM 8.2 mg/dL (8.4-10.2); CARBON DIOXIDE 34 mmol/L (22-30); CHLORIDE 98 mmol/L (98-107); GLUCOSE 100 mg/dL (75-110); SODIUM 139.4 mmol/L (137-145); TOTAL PROTEIN 4.7 g/dL (6.3-8.2)
[2018-03-26 07:56] LABS: POTASSIUM 2.7 mmol/L (3.6-5.0)
[2018-03-26] MEDS: POTASSI CL 20 MEQ/50 ML RIDER 20 MEQ/50 ML RTUPB IV SCH ×6 (08:52→23:59)
[2018-03-26] MEDS ORDERED: (PENDING PHARMACY ID) (Naloxegol Oxalate 25 MG) PO SCH (10:00)
[2018-03-26] MEDS ORDERED: [UNRECOGNIZED DRUG - OTHER] PO SCH (10:00)
[2018-03-26] MEDS ORDERED: (PENDING PHARMACY ID) (Ascorbic Acid [C-1000] 1,000 MG) PO SCH (10:00)
[2018-03-26] MEDS ORDERED: TRIAMTERENE PO SCH (10:00)
[2018-03-26] MEDS ORDERED: HYDROCHLOROTHIAZIDE PO SCH (10:00)
[2018-03-26] MEDS ORDERED: POTASSIUM CHLORIDE 20 MEQ/15 ML UDCUP PO SCH (10:00)
[2018-03-26] MEDS ORDERED: ATORVASTATIN CALCIUM 80 MG TABLET PO SCH (10:00)
[2018-03-26] MEDS: MORPHINE SULFATE SR 30 MG TABLET PO SCH ×2 (10:17→22:59)
[2018-03-26] MEDS: ASCORBIC ACID 500 MG TABLET PO SCH (10:18)
[2018-03-26] MEDS: TRIAMTERENE/HYDROCHLOROTHIAZID 75-50 MG TABLET PO SCH (10:18)
[2018-03-26] MEDS: MULTIVITAMIN TABLET PO SCH (10:18)
[2018-03-26] MEDS: FLUCONAZOLE 100 MG TABLET PO SCH (10:18)
[2018-03-26] MEDS: LEVETIRACETAM 500 MG TABLET PO SCH (10:18)
[2018-03-26] MEDS: DILTIAZEM HCL 60 MG TABLET PO SCH ×2 (10:19→22:59)
[2018-03-26] MEDS: FLECAINIDE ACETATE 100 MG TABLET PO SCH ×2 (10:19→23:00)
[2018-03-26] MEDS ORDERED: POLYETHYLENE GLYCOL 3350 POWDER 17 GM/1 PACKET PO ONE ×2 (12:45→16:00)
--- NOTE | 2018-03-26 12:57 | PDOC PROGRESS REPORT ---
Subjective Progress Note for:: 03/26/18 Subjective:: patient is on heparin bridge , no active bleeding is noted will need 48 hours of Eliquis being stopped before can proceed patient will have heparin turned off at 12 midnight tonight patient will have both EGD and colonoscopy differential to include possible diverticular bleeding vs possible ischemic colitis Reason For Visit: LOWER GI BLEED Physical Exam Vital Signs: Temp Pulse Resp BP Pulse Ox 99.4 F 72 18 147/65 H 94 03/26/18 12:26 03/26/18 12:26 03/26/18 12:26 03/26/18 12:26 03/26/18 12:26 Intake & Output 03/25/18 03/26/18 03/27/18 06:59 06:59 06:59 Intake Total 120 1400 50 Output Total 1550 3500 Balance -1430 -2100 50 Weight 102 kg 100.3 kg General appearance: PRESENT: no acute distress, thin Head exam: PRESENT: atraumatic, normocephalic Eye exam: PRESENT: EOMI, PERRLA. ABSENT: scleral icterus Mouth exam: PRESENT: moist, neck supple Throat exam: ABSENT: tonsillar exudate, tonsillogmegaly Neck exam: ABSENT: meningismus, tenderness, thyromegaly Respiratory exam: PRESENT: symmetrical, unlabored. ABSENT: tachypnea, wheezes Cardiovascular exam: PRESENT: irregular rhythm GI/Abdominal exam: PRESENT: distended, soft. ABSENT: rebound, rigid Extremities exam: ABSENT: joint swelling Musculoskeletal exam: PRESENT: full ROM Neurological exam: PRESENT: CN II-XII grossly intact Focused psych exam: ABSENT: restlessness Skin exam: PRESENT: normal color. ABSENT: mottled, urticaria, vesicles Results Laboratory Results: 03/26/18 06:26 03/26/18 06:26 03/25/18 03/25/18 03/26/18 13:27 14:30 06:26 WBC 9.8 8.3 RBC 4.15 3.97 Hgb 11.8 L 11.4 L Hct 35.5 L 33.9 L MCV 86 85 MCH 28.5 28.7 MCHC 33.3 33.6 RDW 15.6 H 16.0 H Plt Count 337 294 Seg Neutrophils % 69.0 61.1 Lymphocytes % 18.9 25.3 Monocytes % 10.9 11.0 Eosinophils % 0.8 1.9 Basophils % 0.4 0.7 Absolute Neutrophils 6.7 5.1 Absolute Lymphocytes 1.8 2.1 Absolute Monocytes 1.1 0.9 Absolute Eosinophils 0.1 0.2 Absolute Basophils 0.0 0.1 Sodium Potassium Chloride Carbon Dioxide Anion Gap BUN Creatinine Est GFR ( Amer) Est GFR (Non-Af Amer) Glucose Calcium Magnesium Total Bilirubin AST ALT Alkaline Phosphatase Total Protein Albumin Urine Color YELLOW Urine Appearance CLEAR Urine pH 7.0 Ur Specific [place] 1.009 Urine Protein NEGATIVE Urine Glucose (UA) NEGATIVE Urine Ketones NEGATIVE Urine Blood SMALL H Urine Nitrite NEGATIVE Ur Leukocyte Esterase NEGATIVE Urine WBC (Auto) 4 Urine RBC (Auto) 5 03/26/18 06:26 WBC RBC Hgb Hct MCV MCH MCHC RDW Plt Count Seg Neutrophils % Lymphocytes % Monocytes % Eosinophils % Basophils % Absolute Neutrophils Absolute Lymphocytes Absolute Monocytes Absolute Eosinophils Absolute Basophils Sodium 139.4 Potassium 2.7 L* Chloride 98 Carbon Dioxide 34 H Anion Gap 7 BUN 23 H Creatinine 0.91 Est GFR ( Amer) > 60 Est GFR (Non-Af Amer) 58 L Glucose 100 Calcium 8.2 L Magnesium 1.6 Total Bilirubin 0.4 AST 18 ALT 28 Alkaline Phosphatase 69 Total Protein 4.7 L Albumin 2.6 L Urine Color Urine Appearance Urine pH Ur Specific [place] Urine Protein Urine Glucose (UA) Urine Ketones Urine Blood Urine Nitrite Ur Leukocyte Esterase Urine WBC (Auto) Urine RBC (Auto) 03/24/18 16:00 Clean Catch Midstream Urine Culture - Final Enterococcus Faecalis(Group D) 03/24/18 03/24/18 03/24/18 13:00 13:00 13:53 Creatine Kinase 21 L CK-MB (CK-2) 0.63 NT-Pro-B Natriuret Pep 209 03/24/18 03/24/18 03/25/18 21:46 21:46 04:18 Creatine Kinase 32 25 L CK-MB (CK-2) 1.20 NT-Pro-B Natriuret Pep 03/25/18 04:18 Creatine Kinase CK-MB (CK-2) 0.96 NT-Pro-B Natriuret Pep Impressions: Chest X-Ray 03/24/18 00:00 IMPRESSION: No evidence of acute cardiopulmonary process. Assessment & Plan - Diagnosis (1) Rectal bleeding Is this a current diagnosis for this admission?: Yes Plan: patient to prep overnight for EGD and colonoscopy tomorrow Risks, benefits and alternatives will be discussed further recommendations to follow - Time Time Spent with patient: 15-24 minutes
[2018-03-26] MEDS: OXYCODONE-ACETAMINOPHEN 5-325 MG TABLET PO PRN (13:22)
[2018-03-26] MEDS: MAGNESIUM SULFATE/D5W 1 GM/100 ML RTUPB IV SCH ×2 (13:39→14:45)
--- NOTE | 2018-03-26 14:08 | PDOC PROGRESS REPORT ---
Subjective Progress Note for:: 03/26/18 Subjective:: 87 year old female with history of atrial fibrillation on Eliquis, high blood pressure, anxiety, depression, no history of congestive heart failure brought in by family members after noticing bright colored blood in the stool for the last 3 days. She has this problem on and off but for the last 3 days she is having the loose stools in association with heavy bright colored blood in the stool. In the emergency room the workup was done and patient was found to be in A. fib with RVR and hemoglobin is 12.6 the case was discussed with Dr. Hou merchandise flow manager he is going to see the patient tomorrow for further evaluation. medical consult was called for possible admission to the telemetry. I went to talk to the son and the patient, patient is alert and awake oriented not in distress denies any complaints at all for the last 3-4 days noticed bright colored blood in the stool not associated with abdominal pain no nausea no vomiting no constipation but she is having the loose stools blood . Denies any headaches dizzy spells denies any falls. No fever no cough no cold no chest pains. Patient wants to be full code. 03/[id number]-tiig-old female with history of atrial fibrillation on Eliquis admitted for lower GI bleed. Passing bright colored blood in the stool. No acute events in the last 24 hours. Hemoglobin on admission is 12.6 today it is 11.4. Consultation with cardiology and GI was done. Dr. Box wants to hold Eliquis for possible colonoscopy. Patient is going to be placed on heparin bridge. Heparin is going to be stopped 6 hours prior to the procedure. 03/26/2018 67-year-old female with history of atrial fibrillation on Eliquis admitted for lower GI bleed. Cardiology consult was done, GI consult was done. Patient is on heparin bridge since yesterday and Eliquis was discontinued. Patient is going for colonoscopy tomorrow. Appreciate Dr. Box's recommendations. Patient is complaining of chronic shoulder pains she is on MS Contin twice a day and added Percocet 06/19/2024 every 6 as needed for pain. Reason For Visit: LOWER GI BLEED Physical Exam Vital Signs: Temp Pulse Resp BP Pulse Ox 99.4 F 72 18 147/65 H 94 03/26/18 12:26 03/26/18 12:26 03/26/18 12:26 03/26/18 12:26 03/26/18 12:26 Intake & Output 03/25/18 03/26/18 03/27/18 06:59 06:59 06:59 Intake Total 120 1400 50 Output Total 1550 3500 Balance -1430 -2100 50 Weight 102 kg 100.3 kg General appearance: PRESENT: no acute distress Head exam: PRESENT: atraumatic Eye exam: PRESENT: PERRLA Mouth exam: PRESENT: moist, tongue midline Neck exam: ABSENT: carotid bruit, JVD, lymphadenopathy, thyromegaly Respiratory exam: PRESENT: decreased breath sounds Cardiovascular exam: PRESENT: irregular rhythm, systolic murmur, tachycardia GI/Abdominal exam: PRESENT: other - Abdominal was distended but soft and nontender. She denies any pains. Extremities exam: PRESENT: full ROM. ABSENT: calf tenderness, clubbing, pedal edema Neurological exam: PRESENT: alert, awake, oriented to person, oriented to place, oriented to time, oriented to situation, CN II-XII grossly intact. ABSENT: motor sensory deficit Psychiatric exam: PRESENT: appropriate affect, normal mood. ABSENT: homicidal ideation, suicidal ideation Results Laboratory Results: 03/26/18 06:26 03/26/18 06:26 03/25/18 03/26/18 03/26/18 14:30 06:26 06:26 WBC 8.3 RBC 3.97 Hgb 11.4 L Hct 33.9 L MCV 85 MCH 28.7 MCHC 33.6 RDW 16.0 H Plt Count 294 Seg Neutrophils % 61.1 Lymphocytes % 25.3 Monocytes % 11.0 Eosinophils % 1.9 Basophils % 0.7 Absolute Neutrophils 5.1 Absolute Lymphocytes 2.1 Absolute Monocytes 0.9 Absolute Eosinophils 0.2 Absolute Basophils 0.1 Sodium 139.4 Potassium 2.7 L* Chloride 98 Carbon Dioxide 34 H Anion Gap 7 BUN 23 H Creatinine 0.91 Est GFR ( Amer) > 60 Est GFR (Non-Af Amer) 58 L Glucose 100 Calcium 8.2 L Magnesium 1.6 Total Bilirubin 0.4 AST 18 ALT 28 Alkaline Phosphatase 69 Total Protein 4.7 L Albumin 2.6 L Urine Color YELLOW Urine Appearance CLEAR Urine pH 7.0 Ur Specific [place] 1.009 Urine Protein NEGATIVE Urine Glucose (UA) NEGATIVE Urine Ketones NEGATIVE Urine Blood SMALL H Urine Nitrite NEGATIVE Ur Leukocyte Esterase NEGATIVE Urine WBC (Auto) 4 Urine RBC (Auto) 5 Stool Occult Blood 03/26/18 09:19 WBC RBC Hgb Hct MCV MCH MCHC RDW Plt Count Seg Neutrophils % Lymphocytes % Monocytes % Eosinophils % Basophils % Absolute Neutrophils Absolute Lymphocytes Absolute Monocytes Absolute Eosinophils Absolute Basophils Sodium Potassium Chloride Carbon Dioxide Anion Gap BUN Creatinine Est GFR ( Amer) Est GFR (Non-Af Amer) Glucose Calcium Magnesium Total Bilirubin AST ALT Alkaline Phosphatase Total Protein Albumin Urine Color Urine Appearance Urine pH Ur Specific [place] Urine Protein Urine Glucose (UA) Urine Ketones Urine Blood Urine Nitrite Ur Leukocyte Esterase Urine WBC (Auto) Urine RBC (Auto) Stool Occult Blood POSITIVE 03/24/18 16:00 Clean Catch Midstream Urine Culture - Final Enterococcus Faecalis(Group D) 03/24/18 03/24/18 03/24/18 13:00 13:00 13:53 Creatine Kinase 21 L CK-MB (CK-2) 0.63 NT-Pro-B Natriuret Pep 209 03/24/18 03/24/18 03/25/18 21:46 21:46 04:18 Creatine Kinase 32 25 L CK-MB (CK-2) 1.20 NT-Pro-B Natriuret Pep 03/25/18 04:18 Creatine Kinase CK-MB (CK-2) 0.96 NT-Pro-B Natriuret Pep Impressions: Chest X-Ray 03/24/18 00:00 IMPRESSION: No evidence of acute cardiopulmonary process. Assessment & Plan - Diagnosis (1) Rectal bleeding Is this a current diagnosis for this admission?: Yes Plan: 03/24/2018 plan is to admit the patient as inpatient in telemetry. Consultation with Dr. Hou was placed, consultation with Dr. Zarate was placed. Going to keep the patient n.p.o. from midnight. Eliquis will be on hold. Plan to restart her home medications. Going to type and crossmatch 1 unit and hold 1 unit of prbc for now. Plan to do the regular CBC on daily basis. Family wants her to be full code. Placed on GI prophylaxis famotidine 20 mg twice a day. She was placed on SCDs no pharmacologic prophylaxis because of active bleeding. Discussed the advantages and disadvantages of withholding Eliquis. Son understood verbalize response. He prefers to her mom on Eliquis to prevent further strokes in the future. 03/25/2018-patient with history of atrial fibrillation on Eliquis admitted for rectal bleeding. GI consult was done cardiology consult was done. Be going to stop Eliquis and place the patient on heparin protocol in preparation for possible EGD or colonoscopy. Plan is to hold the heparin drip was 6 hours prior to the procedure. Latest hemoglobin is 11.4. 1 unit of PRBC on hold. 03/26/2018-patient was admitted with bright colored blood per rectum. She has history of atrial fibrillation on Eliquis. Eliquis was stopped and the patient is presently on heparin drip. She is going for colonoscopy tomorrow. Latest hemoglobin is 11.4 stable. (2) Atrial fibrillation Qualifiers: Atrial fibrillation type: chronic Qualified Code(s): I48.2 - Chronic atrial fibrillation Is this a current diagnosis for this admission?: Yes Plan: 03/24/2018-patient has chronic history of atrial fibrillation and Eliquis. Admitted for lower GI bleed. Eliquis will be held for today. We are going to keep her n.p.o. from midnight for possible colonoscopy tomorrow. Explained to the son, we may have to use heparin iv as a bridge while the patient is off Eliquis. But the son to does not want her mom to be on heparin drip. Patient is on flecainide and diltiazem at home plan is to resume those medications during the hospital stay. 03/25/2018-Eliquis was discontinued for atrial fibrillation and patient is on heparin drip. Plan is to continue the present management. 03/26/2018-patient has history of atrial fibrillation on Eliquis, which was on hol d. Presently on heparin bridge and it will be stopped 6 hours prior to colonoscopy. (3) HTN (hypertension) Is this a current diagnosis for this admission?: Yes Plan: 03/24/2018 patient has history of hypertension blood pressure today is 119/60 stable. Plan is to resume her home medications. 03/25/2018-patient blood pressure today is 111/46. Stable. 03/26/2018 patient has history of hypertension. Latest blood pressure is 147/65. Stable. Plan is to continue her home medications. She is presently on torsemide 10 mg every 3 days, diltiazem 60 mg every 12 hours, flecainide 50 mg every 12 hours, triamterene/hydrochlorothiazide 1 tablet daily. (4) Depression Is this a current diagnosis for this admission?: Yes Plan: 03/24/2018 patient has history of depression on duloxetine. Plan is to resume the medications while she was in the hospital. 03/25/2018-patient has history of depression and Cymbalta at home. Which was resumed during this hospital stay. 03/26/2018-patient has history of depression on Cymbalta, Keppra 500 mg p.o. daily, bupropion. Plan is to continue the present management. (5) Chronic pain syndrome Is this a current diagnosis for this admission?: Yes Plan: 01/23/2019 patient has history of chronic pain syndrome on MS Contin twice a day. She is also on tramadol. Still complaining of shoulder pains. Started on Percocet 5/25 mg every 6 as needed for pain. - Time Time Spent with patient: 15-24 minutes Medications reviewed and adjusted accordingly: Yes Anticipated discharge: Home
--- NOTE | 2018-03-26 16:07 | RADIOLOGY REPORT (SQ) ---
EXAM DESCRIPTION: ACUTE ABDOMEN SERIES COMPLETED DATE/TIME: 03/26/2018 3:47 pm REASON FOR STUDY: abd distension COMPARISON: None. NUMBER OF VIEWS: Three views. TECHNIQUE: Frontal chest, supine abdomen and upright/decubitus abdomen radiographic images acquired. LIMITATIONS: None. FINDINGS: CHEST: Lungs clear of infiltrates. FREE AIR: None. No abnormal gas collections. BOWEL GAS PATTERN: There is a large amount of stool throughout the colon consistent with constipation . On is a fine view there is a dilated loop bladder appears to be large bowel measured 12.1 cm. Thi s raises the possibility of sigmoid volvulus. Correlation with CT is recommended. CALCIFICATIONS: No suspicious calcifications. HARDWARE: There are surgical clips in the right upper quadrant consistent with prior cholecystectomy. SOFT TISSUES: No gross mass or suggestion of organomegaly. BONES: No acute fracture. No worrisome bone lesions. OTHER: No other significant finding. IMPRESSION: Severe constipation. Possible sigmoid volvulus as described. Recommend CT for further evaluation. TECHNICAL DOCUMENTATION: JOB ID: [id number]- All Rights Reserved Reading location - IP/workstation name: [email or web address]
[2018-03-26] MEDS: DULOXETINE HCL 30 MG CAPSULE.DR PO SCH (18:24)
--- NOTE | 2018-03-26 18:40 | RADIOLOGY REPORT (SQ) ---
EXAM DESCRIPTION: CT ABD/PELVIS NO ORAL OR IV COMPLETED DATE/TIME: 03/26/2018 6:29 pm REASON FOR STUDY: r/o volvulus COMPARISON: 2014 TECHNIQUE: CT scan of the abdomen and pelvis performed without intravenous or oral contrast. Images reviewed with lung, soft tissue, and bone windows. Reconstructed coronal and sagittal MPR images revi ewed. All images stored on PACS. All CT scanners at this facility use dose modulation, iterative reconstruction, and/or weight based d osing when appropriate to reduce radiation dose to as low as reasonably achievable (ALARA). [facility]: Dose Right [facility]: CareDose [facility]: Dose Right [facility]: Teradose 4D [facility]: Smart [employer] Sound RADIATION DOSE: CT Rad equipment meets quality standard of care and radiation dose reduction techniq ues were employed. CTDIvol: 18.6 mGy. DLP: 966 mGy-cm.mGy. LIMITATIONS: Artifact from right hip arthroplasty. FINDINGS: LOWER CHEST: No significant findings. No nodules or infiltrates. NON-CONTRASTED LIVER, SPLEEN, ADRENALS: Hepatic cysts. PANCREAS: No masses. No peripancreatic inflammatory changes. GALLBLADDER: Surgically absent. RIGHT KIDNEY AND URETER: No suspicious masses. Assessment limited by lack of IV contrast. Renal honey culi measuring up to 2 mm. No hydronephrosis or hydroureter. LEFT KIDNEY AND URETER: No suspicious masses. Assessment limited by lack of IV contrast. Renal calc mark measuring up to 2 mm. No hydronephrosis or hydroureter. AORTA AND RETROPERITONEUM: No aneurysm. No retroperitoneal masses or adenopathy. BOWEL AND PERITONEAL CAVITY: Mesenteric inflammation associated with sigmoid colon containing diverti culum. No abscess. No obstruction. Abundant fecal material throughout the colon. No ascites or fr ee air. APPENDIX: Normal. PELVIS, BLADDER, AND ABDOMINAL WALL:Guerrero catheter in urinary bladder. BONES: Nothing acute. OTHER: No other significant finding. IMPRESSION: Sigmoid diverticulitis. COMMENT: Quality ID # [id number]: Final reports with documentation of one or more dose reduction techniques (e.g., Automated exposure control, adjustment of the mA and/or kV according to patient size, use of iterative reconstruction technique) TECHNICAL DOCUMENTATION: JOB ID: [id number] [employer]- All Rights Reserved Reading location - IP/workstation name: [email or web address]
[2018-03-26] MEDS ORDERED: MIDAZOLAM 2 MG/2 ML INJ ONE (20:42)
[2018-03-26] MEDS ORDERED: FENTANYL CITRATE INJ/PF 100 MCG/2 ML AMPUL ONE (20:42)
[2018-03-26] MEDS ORDERED: ONDANSETRON HCL INJ/PF 4 MG/2 ML SDV ONE (20:42)
[2018-03-26] MEDS ORDERED: DIPHENHYDRAMINE HCL 50 MG/ML VIAL ONE (20:42)
[2018-03-26] MEDS ORDERED: FLUMAZENIL INJ 0.5 MG/5 ML VIAL ONE (20:43)
[2018-03-26] MEDS ORDERED: EPINEPHRINE INJ 1 MG/10 ML DISP.SYRIN ONE (20:43)
[2018-03-26] MEDS ORDERED: NALOXONE HCL INJ/PF 0.4 MG/1 ML SDV ONE (20:43)
[2018-03-26] MEDS ORDERED: GLUCAGON,HUMAN RECOMB 1 MG INJ ONE (20:43)
--- NOTE | 2018-03-26 20:58 | Physician Advisory Note ---
Physician Advisor ProgressNote .: Pursuant to the plan for Daniella Arora, I have reviewed the medical record for this patient. Physician Advisor Statement: Pt w/HGB 14.2 on 03/02/18, now 11.4 after LGIB. Pt on MS Contin 30mg bid for chr pain. Please consider documenting, if you agree: 1. "Anemia of acute blood loss due to ___", vs "Anemia of chronic blood loss due to ____", vs this was ruled out. 2. "opioid dependence", vs this is ruled out. Thanks! CK
--- NOTE | 2018-03-26 22:18 | RADIOLOGY REPORT (SQ) ---
EXAM DESCRIPTION: XR ABDOMEN 1 VIEW (KUB) COMPLETED DATE/TME: 03/26/2018 21:21 CLINICAL HISTORY: 87 years, Female, SIGMOID VOLVOLUS COMPARISON: Prior plain film from today's date NUMBER OF VIEWS: 2 TECHNIQUE: AP views of the abdomen LIMITATIONS: None. FINDINGS: What appears to be a Guerrero catheter as well as rectal tube are in place. Evaluation for free air limited on a supine view. Right hip prosthesis. The bowel gas pattern is nonspecific. Osteopenia. IMPRESSION: Rectal tube/Guerrero catheter in place. Nonspecific bowel gas pattern. copyright 2010 [employer]- All Rights Reserved
[2018-03-26] MEDS: ATORVASTATIN CALCIUM 20 MG TABLET PO SCH (23:00)
[2018-03-26] MEDS: FAMOTIDINE 20 MG TABLET PO SCH (23:00)
--- NOTE | 2018-03-26 23:11 | Operative Report ---
Nonrecallable Operative Report DATE OF SURGERY: 03/26/18 PREOPERATIVE DIAGNOSIS: sigmoid volvolus POSTOPERATIVE DIAGNOSIS: sigmoid volvolus OPERATION: flexible sigmoidoscoy and rectal tube insertion SURGEON: GIUSEPPE TIPTON ANESTHESIA: Other - no sedation TISSUE REMOVED OR ALTERED: none COMPLICATIONS: none ESTIMATED BLOOD LOSS: none
--- NOTE | 2018-03-26 23:21 | RADIOLOGY REPORT (SQ) ---
EXAM DESCRIPTION: XR ABDOMEN 1 VIEW (KUB) COMPLETED DATE/TME: 03/26/2018 00:00 CLINICAL HISTORY: 87 years, Female, post colonoscopy COMPARISON: Prior exam from earlier on today's date NUMBER OF VIEWS: 3. TECHNIQUE: AP views of the abdomen LIMITATIONS: None. FINDINGS: Rectal tube and Guerrero catheter in place. The bowel gas pattern is nonspecific. Osteopenia. Large amount of stool throughout colon. Right hip prosthesis. Surgical clips right upper quadrant. Evaluation for free air limited on a supine view. IMPRESSION: Large amount of stool in the colon. Rectal tube and Guerrero catheter in place. copyright 2010 [employer]- All Rights Reserved
[2018-03-26 23:37] LABS: ALBUMIN 2.6 g/dL (3.5-5.0); ANION GAP 5 (5-19); ASPARTATE AMINO TRANSFERASE 21 U/L (14-36); BLOOD UREA NITROGEN 17 mg/dL (7-20); CALCIUM 8.2 mg/dL (8.4-10.2); CARBON DIOXIDE 33 mmol/L (22-30); CHLORIDE 96 mmol/L (98-107); GLUCOSE 105 mg/dL (75-110); POTASSIUM 3.8 mmol/L (3.6-5.0); SODIUM 134.4 mmol/L (137-145); TOTAL PROTEIN 4.8 g/dL (6.3-8.2)
[2018-03-26 23:38] LABS: ALANINE AMINOTRANSFERASE 28 U/L (9-52); ALKALINE PHOSPHATASE 69 U/L (38-126); BILIRUBIN,DIRECT 0.1 mg/dL (0.0-0.4); BILIRUBIN,TOTAL 0.6 mg/dL (0.2-1.3)
[2018-03-27] MEDS: POTASSI CL 20 MEQ/50 ML RIDER 20 MEQ/50 ML RTUPB IV SCH
[2018-03-27] MEDS: OXYCODONE-ACETAMINOPHEN 5-325 MG TABLET PO PRN (03:54)
[2018-03-27] MEDS: BUPROPION HCL 75 MG TABLET PO SCH ×3 (05:30→22:16)
[2018-03-27 06:29] LABS: HEMATOCRIT 34.5 % (36.0-47.0); HEMOGLOBIN 11.5 g/dL (12.0-15.5); MEAN CORPUSCULAR HEMOGLOBIN 28.5 pg (27.0-33.4); MEAN CORPUSCULAR HGB CONC 33.4 g/dL (32.0-36.0); MEAN CORPUSCULAR VOLUME 85 fl (80-97); PLATELET COUNT 324 10^3/uL (150-450); RED BLOOD COUNT 4.05 10^6/uL (3.72-5.28); RED CELL DISTRIBUTION WIDTH 15.6 % (11.5-14.0); WHITE BLOOD COUNT 9.4 10^3/uL (4.0-10.5)
--- NOTE | 2018-03-27 08:26 | PDOC PROGRESS REPORT ---
Subjective Progress Note for:: 03/27/18 Reason For Visit: LOWER GI BLEED Physical Exam Vital Signs: Temp Pulse Resp BP Pulse Ox 99.6 F 69 20 143/46 H 92 03/27/18 03:39 03/27/18 03:39 03/27/18 03:39 03/27/18 03:39 03/27/18 03:39 Intake & Output 03/26/18 03/27/18 03/28/18 06:59 06:59 06:59 Intake Total 1400 1039 37 Output Total 3500 2800 Balance -2100 -1761 37 Weight 100.3 kg 103 kg General appearance: PRESENT: no acute distress, hard of hearing, well-developed, well-nourished Head exam: PRESENT: atraumatic, normocephalic Eye exam: PRESENT: conjunctiva pink, EOMI, PERRLA. ABSENT: scleral icterus Ear exam: PRESENT: normal external ear exam Mouth exam: PRESENT: moist, tongue midline Neck exam: ABSENT: carotid bruit, JVD, lymphadenopathy, thyromegaly Respiratory exam: PRESENT: clear to auscultation brianne. ABSENT: rales, rhonchi, wheezes Cardiovascular exam: PRESENT: RRR. ABSENT: diastolic murmur, rubs, systolic murmur Pulses: PRESENT: normal dorsalis pedis pul Vascular exam: PRESENT: normal capillary refill GI/Abdominal exam: PRESENT: normal bowel sounds, soft, other - abd still distended,less so than before the decompression tube placed last pm + tympanitic. min tenderness. ABSENT: distended, guarding, mass, organolmegaly, rebound, tenderness Rectal exam: PRESENT: deferred, other - rectal tube in place Extremities exam: PRESENT: full ROM. ABSENT: calf tenderness, clubbing, pedal edema Neurological exam: PRESENT: alert, awake, oriented to person, oriented to place, oriented to time, oriented to situation, CN II-XII grossly intact. ABSENT: motor sensory deficit Psychiatric exam: PRESENT: appropriate affect, normal mood. ABSENT: homicidal ideation, suicidal ideation Skin exam: PRESENT: dry, intact, warm. ABSENT: cyanosis, rash Results Laboratory Results: 03/27/18 06:18 03/26/18 23:16 03/26/18 03/26/18 03/26/18 09:19 18:14 23:16 WBC RBC Hgb Hct MCV MCH MCHC RDW Plt Count Sodium 134.4 L Potassium 4.0 D 3.8 Chloride 96 L Carbon Dioxide 33 H Anion Gap 5 BUN 17 Creatinine 0.81 Est GFR ( Amer) > 60 Est GFR (Non-Af Amer) > 60 Glucose 105 Calcium 8.2 L Magnesium 2.3 Total Bilirubin 0.6 AST 21 ALT 28 Alkaline Phosphatase 69 Total Protein 4.8 L Albumin 2.6 L Stool Occult Blood POSITIVE 03/27/18 06:18 WBC 9.4 RBC 4.05 Hgb 11.5 L Hct 34.5 L MCV 85 MCH 28.5 MCHC 33.4 RDW 15.6 H Plt Count 324 Sodium Potassium Chloride Carbon Dioxide Anion Gap BUN Creatinine Est GFR ( Amer) Est GFR (Non-Af Amer) Glucose Calcium Magnesium Total Bilirubin AST ALT Alkaline Phosphatase Total Protein Albumin Stool Occult Blood 03/24/18 16:00 Clean Catch Midstream Urine Culture - Final Enterococcus Faecalis(Group D) 03/24/18 03/24/18 03/24/18 13:00 13:00 13:53 Creatine Kinase 21 L CK-MB (CK-2) 0.63 NT-Pro-B Natriuret Pep 209 03/24/18 03/24/18 03/25/18 21:46 21:46 04:18 Creatine Kinase 32 25 L CK-MB (CK-2) 1.20 NT-Pro-B Natriuret Pep 03/25/18 04:18 Creatine Kinase CK-MB (CK-2) 0.96 NT-Pro-B Natriuret Pep Impressions: Chest X-Ray 03/24/18 00:00 IMPRESSION: No evidence of acute cardiopulmonary process. Abdomen/Pelvis CT 03/26/18 00:00 IMPRESSION: Sigmoid diverticulitis. Acute Abdomen Series 03/26/18 00:00 IMPRESSION: Severe constipation. Possible sigmoid volvulus as described. Recommend CT for further evaluation. KUB X-Ray 03/26/18 21:21 IMPRESSION: Rectal tube/Guerrero catheter in place. Nonspecific bowel gas pattern. copyright 2010 [employer]- All Rights Reserved Assessment & Plan - Plan Summary Plan Summary: pt is s/p sigmoid volvolus reduction last pm now with rectal tube in place Dr. Box was planning on colo today due to hematochezia, however, pt required decompression with rectal tube last night spoke with Dr Box this am he will reevaluate need for colo today.
[2018-03-27] MEDS ORDERED: PROPOFOL INJ 200 MG/20 ML VIAL IV ONE (08:27)
--- NOTE | 2018-03-27 09:33 | OPERATIVE REPORT E ---
Operative Report NAME: MICKEY VASQUEZ : 1930 AGE: 87Y DATE OF SURGERY: 03/26/2018 ROOM: 435 PREOPERATIVE DIAGNOSIS: Sigmoid volvulus. POSTOPERATIVE DIAGNOSIS: Sigmoid volvulus. OPERATIVE PROCEDURE: Colonoscopy with rectal tube placement. SURGEON: GIUSEPPE TIPTON M.D. INDICATIONS FOR OPERATION: This is an 87-year-old female who presented today with abdominal distention and pain. She has a history of atrial fibrillation on Eliquis and was admitted for also a lower GI bleed. Cardiology consultation was done and GI consult was done and the plan was to perform a colonoscopy by analytics director the following day. However, the hospitalist obtained an abdominal series because of abdominal distention and a sigmoid volvulus was seen on the KUB. Because of that, she was taken to the endoscopy suite for a flexible sigmoidoscopy and rectal tube placement in hopes of reducing the sigmoid volvulus. PROCEDURE: The patient was brought to the endoscopy suite awake and alert condition, placed on the gurney in a left lateral decubitus position. After appropriate timeout, a rectal exam was performed, which felt no evidence of any masses or stool in her rectal vault. Using an Olympus colonoscope, I was able to pass into her rectum and advanced through the sigmoid to the point of what appeared to be a narrowing or twist in the proximal sigmoid colon. At about 80 cm, it appeared that there was a large amount of hard stool and apparent narrowed lumen consistent with a twist. With gentle pressure, I was able to pass the colonoscope past that narrowing and reach a point where there was a large gush of liquid stool that emanated distal to that point of narrowing after the colonoscope past it. The patient felt immediately better after decompressing that twisted loop of bowel. We continued our scope to the point where we could not really evaluate any further secondary to a large amount of stool and liquid stool. I therefore obtained another KUB while the scope was in place at approximately 100 cm. The scope appeared to be tortuous passing through the narrowing that was seen on the initial KUB. I then removed the scope, suctioning all liquid stool as it was withdrawn and replaced the scope with a 36-Greenlandic chest tube that was easily passed through the rectum without pressure up into the proximal sigmoid colon. It was fixed then to the buttock skin with a single suture of 2-0 nylon suture to help it remain in place. A large amount of stool emanated from the rectal tube as it also was passed up. At this point, this completed the procedure. She was then placed back in a supine position on the transport gurney and transported back to her room where a followup KUB will be obtained. Estimated blood loss for the procedure negligible. The patient tolerated the procedure well without complications. DICTATING PHYSICIAN: GIUSEPPE TIPTON M.D. [id number] PHY#: [id number] ID: [id number] JOB#: [id number] ACCT: [id number] cc:GIUSEPPE TIPTON M.D. >
[2018-03-27] MEDS ORDERED: LIDOCAINE 2% INJ-PF (20 MG/ML) 10 ML AMPUL ONE (09:40)
--- NOTE | 2018-03-27 10:58 | Progress Note ---
Provider Note Provider Note: Summary of Events/ Update Patient had been scheduled to have colonoscopy done today she presented with hematochezia while prepping yesterday, it was noted the she had abdominal distension she had KUB and CT scan and radiology reports that she had a volvulus Surgery was called, patient had been on a heparin drip and required to be stopped Dr Monsalve had discussed the case with the family apparently does not want surgery but was willing to proceed with invasive decompression rectal tube was placed and stitched in place I had spoken with Dr Monsalve earlier this am also spoke with Hospitalist review of the procedure was done along with photodocumentation that was obtained 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 per GI nursing, there was no blood in her colonic tract the colonoscopy was completed to the cecum. ? need to repeat procedure at this time patient is at high risk. the reason for the initial presentation appears to be secondary to ischemic colitis there has been no further observed bleeding since admission a repeat procedure would also require the removal of the rectal tube which would likely cause recurrence of the volvulus given all of the above factors, it would more prudent not to proceed with the procedure this am. there is an increase risk of recurrence of a volvulus since colonic decompression is not effective in greater than 50% of the time surgery is usually required since it involves redundancy of the colon but currently family does not want to proceed will restart her Eliquis bridge with heparin for 24 more hours transfuse as necessary Plan : 1) sigmoid volvulus decompressed by Dr Monsalve with placement of tube to decrease recurrence. 2) the etiology of her initial presentation is due to ischemic colitis, which is consistent with past medical history, initial presentation, clinical course, along with findings of colonoscopy via photodocumentation. 3) patient has significant co- morbidities which increases the risk of perforation given the fact that she has ischemic bowel 4) would not proceed with further endoscopic procedures at this time.
[2018-03-27] MEDS ORDERED: INSULIN LISPRO 100 UNIT/ML 3 ML VIAL SUBCUT ONE (12:00)
--- NOTE | 2018-03-27 12:36 | EKG REPORT ---
SEVERITY:- NORMAL ECG - SINUS RHYTHM : Confirmed by: Jasmeet Winn 27-Mar-2018 12:35:34
[2018-03-27] MEDS: MORPHINE SULFATE SR 30 MG TABLET PO SCH ×2 (12:50→22:17)
[2018-03-27] MEDS: NORMAL SALINE 1000 ML 1,000 ML IV PRN ×2 (12:51→22:18)
[2018-03-27] MEDS ORDERED: PEG 3350/NA SULF,BICARB,CL/KCL 4000 ML PO ONE (14:00)
[2018-03-27] MEDS: NYSTATIN/TRIAMCIN CREAM 15 GM TP SCH ×4 (14:12→22:17)
--- NOTE | 2018-03-27 16:02 | PDOC PROGRESS REPORT ---
Subjective Progress Note for:: 03/27/18 Subjective:: 87 year old female with history of atrial fibrillation on Eliquis, high blood pressure, anxiety, depression, no history of congestive heart failure brought in by family members after noticing bright colored blood in the stool for the last 3 days. She has this problem on and off but for the last 3 days she is having the loose stools in association with heavy bright colored blood in the stool. In the emergency room the workup was done and patient was found to be in A. fib with RVR and hemoglobin is 12.6 the case was discussed with Dr. Hou application technical designer he is going to see the patient tomorrow for further evaluation. medical consult was called for possible admission to the telemetry. I went to talk to the son and the patient, patient is alert and awake oriented not in distress denies any complaints at all for the last 3-4 days noticed bright colored blood in the stool not associated with abdominal pain no nausea no vomiting no constipation but she is having the loose stools blood . Denies any headaches dizzy spells denies any falls. No fever no cough no cold no chest pains. Patient wants to be full code. 03/25/[id number]-[id number]-old female with history of atrial fibrillation on Eliquis admitted for lower GI bleed. Passing bright colored blood in the stool. No acute events in the last 24 hours. Hemoglobin on admission is 12.6 today it is 11.4. Consultation with cardiology and GI was done. Dr. Box wants to hold Eliquis for possible colonoscopy. Patient is going to be placed on heparin bridge. Heparin is going to be stopped 6 hours prior to the procedure. 03/26/2018 67-year-old female with history of atrial fibrillation on Eliquis admitted for lower GI bleed. Cardiology consult was done, GI consult was done. Patient is on heparin bridge since yesterday and Eliquis was discontinued. Patient is going for colonoscopy tomorrow. Appreciate Dr. Box's recommendations. Patient is complaining of chronic shoulder pains she is on MS Contin twice a day and added Percocet 06/19/2024 every 6 as needed for pain. 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 Dr. Hou spoke to me this morning he said he does not want to do any further procedures because of the ischemic colitis increased risk of perforation. I spoke to Dr. loco neurologist minute ago he said daily rectal tube until Friday and will make a decision whether to remove the rectal tube are not if the volvulus recurs then will have a discussion with the family again about comfort care measures only. Platelet agree with him. No acute events in the last 24 hours. Reason For Visit: LOWER GI BLEED Physical Exam Vital Signs: Temp Pulse Resp BP Pulse Ox 99.6 F 69 16 133/75 H 95 03/27/18 13:39 03/27/18 14:00 03/27/18 13:39 03/27/18 13:39 03/27/18 13:39 Intake & Output 03/26/18 03/27/18 03/28/18 06:59 06:59 06:59 Intake Total 1400 1039 37 Output Total 3500 2800 Balance -2100 -1761 37 Weight 100.3 kg 103 kg General appearance: PRESENT: no acute distress Head exam: PRESENT: atraumatic Eye exam: PRESENT: PERRLA Mouth exam: PRESENT: dry mucosa Neck exam: ABSENT: carotid bruit, JVD, lymphadenopathy, thyromegaly Respiratory exam: PRESENT: decreased breath sounds Cardiovascular exam: PRESENT: irregular rhythm, systolic murmur, tachycardia GI/Abdominal exam: PRESENT: other - Abdomen was soft and less distended compared to yesterday. Extremities exam: PRESENT: full ROM. ABSENT: calf tenderness, clubbing, pedal edema Neurological exam: PRESENT: other - Patient has advanced dementia. Psychiatric exam: PRESENT: anxious Results Laboratory Results: 03/27/18 06:18 03/26/18 23:16 03/26/18 03/26/18 03/27/18 18:14 23:16 06:18 WBC 9.4 RBC 4.05 Hgb 11.5 L Hct 34.5 L MCV 85 MCH 28.5 MCHC 33.4 RDW 15.6 H Plt Count 324 Sodium 134.4 L Potassium 4.0 D 3.8 Chloride 96 L Carbon Dioxide 33 H Anion Gap 5 BUN 17 Creatinine 0.81 Est GFR ( Amer) > 60 Est GFR (Non-Af Amer) > 60 Glucose 105 Calcium 8.2 L Magnesium 2.3 Total Bilirubin 0.6 AST 21 ALT 28 Alkaline Phosphatase 69 Total Protein 4.8 L Albumin 2.6 L 03/24/18 16:00 Clean Catch Midstream Urine Culture - Final Enterococcus Faecalis(Group D) 03/24/18 03/24/18 03/24/18 13:00 13:00 13:53 Creatine Kinase 21 L CK-MB (CK-2) 0.63 NT-Pro-B Natriuret Pep 209 03/24/18 03/24/18 03/25/18 21:46 21:46 04:18 Creatine Kinase 32 25 L CK-MB (CK-2) 1.20 NT-Pro-B Natriuret Pep 03/25/18 04:18 Creatine Kinase CK-MB (CK-2) 0.96 NT-Pro-B Natriuret Pep Impressions: Chest X-Ray 03/24/18 00:00 IMPRESSION: No evidence of acute cardiopulmonary process. Abdomen/Pelvis CT 03/26/18 00:00 IMPRESSION: Sigmoid diverticulitis. Acute Abdomen Series 03/26/18 00:00 IMPRESSION: Severe constipation. Possible sigmoid volvulus as described. Recommend CT for further evaluation. KUB X-Ray 03/26/18 21:21 IMPRESSION: Rectal tube/Guerrero catheter in place. Nonspecific bowel gas pattern. copyright 2010 [employer]- All Rights Reserved Assessment & Plan - Diagnosis (1) Rectal bleeding Is this a current diagnosis for this admission?: Yes Plan: 03/24/2018 plan is to admit the patient as inpatient in telemetry. Consultation with Dr. Hou was placed, consultation with Dr. Zarate was placed. Going to keep the patient n.p.o. from midnight. Eliquis will be on hold. Plan to restart her home medications. Going to type and crossmatch 1 unit and hold 1 unit of prbc for now. Plan to do the regular CBC on daily basis. Family wants her to be full code. Placed on GI prophylaxis famotidine 20 mg twice a day. She was placed on SCDs no pharmacologic prophylaxis because of active bleeding. Discussed the advantages and disadvantages of withholding Eliquis. Son understood verbalize response. He prefers to her mom on Eliquis to prevent further strokes in the future. 03/25/2018-patient with history of atrial fibrillation on Eliquis admitted for rectal bleeding. GI consult was done cardiology consult was done. Be going to stop Eliquis and place the patient on heparin protocol in preparation for possible EGD or colonoscopy. Plan is to hold the heparin drip was 6 hours prior to the procedure. Latest hemoglobin is 11.4. 1 unit of PRBC on hold. 03/26/2018-patient was admitted with bright colored blood per rectum. She has history of atrial fibrillation on Eliquis. Eliquis was stopped and the patient is presently on heparin drip. She is going for colonoscopy tomorrow. Latest hemoglobin is 11.4 stable. 03/27/2018-patient admitted with bright colored blood per rectum. Her hemoglobin in early February is 14.6 latest hemoglobin is 11.5. Acute blood loss anemia most likely secondary to rectal bleed. (2) Atrial fibrillation Qualifiers: Atrial fibrillation type: chronic Qualified Code(s): I48.2 - Chronic atrial fibrillation Is this a current diagnosis for this admission?: Yes Plan: 03/24/2018-patient has chronic history of atrial fibrillation and Eliquis. Admitted for lower GI bleed. Eliquis will be held for today. We are going to keep her n.p.o. from midnight for possible colonoscopy tomorrow. Explained to the son, we may have to use heparin iv as a bridge while the patient is off Eliquis. But the son to does not want her mom to be on heparin drip. Patient is on flecainide and diltiazem at home plan is to resume those medications during the hospital stay. 03/25/2018-Eliquis was discontinued for atrial fibrillation and patient is on heparin drip. Plan is to continue the present management. 03/26/2018-patient has history of atrial fibrillation on Eliquis, which was on hold. Presently on heparin bridge and it will be stopped 6 hours prior to colonoscopy. 03/27/2018-patient has history of atrial fibrillation on Eliquis. Patient is presently on heparin drip. Eliquis is on hold. (3) HTN (hypertension) Is this a current diagnosis for this admission?: Yes Plan: 03/24/2018 patient has history of hypertension blood pressure today is 119/60 stable. Plan is to resume her home medications. 03/25/2018-patient blood pressure today is 111/46. Stable. 03/26/2018 patient has history of hypertension. Latest blood pressure is 147/65. Stable. Plan is to continue her home medications. She is presently on torsemide 10 mg every 3 days, diltiazem 60 mg every 12 hours, flecainide 50 mg every 12 hours, triamterene/hydrochlorothiazide 1 tablet daily. 03/27/2018-patient has a history of hypertension. Blood pressure today is 1 3375. Stable. Plan is to continue the present management. (4) Depression Is this a current diagnosis for this admission?: Yes Plan: 03/24/2018 patient has history of depression on duloxetine. Plan is to resume the medications while she was in the hospital. 03/25/2018-patient has history of depression and Cymbalta at home. Which was resumed during this hospital stay. 03/26/2018-patient has history of depression on Cymbalta, Keppra 500 mg p.o. daily, bupropion. Plan is to continue the present management. 03/27/2018-patient has history of depression on Cymbalta/Keppra and also she is on bupropion plan is to continue those medications. (5) Chronic pain syndrome Is this a current diagnosis for this admission?: Yes Plan: 03/26/2018 patient has history of chronic pain syndrome on MS Contin twice a day. She is also on tramadol. Still complaining of shoulder pains. Started on Percocet 5/25 mg every 6 as needed for pain. 03/27/2018-patient has history of chronic pain syndrome on MS Contin twice daily. She is also on tramadol. Yesterday she was started on Percocet 5/25 mg every 6 as needed for pain. May be she has chronic pain with opioid dependency. - Time Time Spent with patient: 15-24 minutes Medications reviewed and adjusted accordingly: Yes Anticipated discharge: Home
[2018-03-27] MEDS: DILTIAZEM HCL 60 MG TABLET PO SCH ×2 (16:41→22:16)
[2018-03-27] MEDS: FLUCONAZOLE 100 MG TABLET PO SCH (16:41)
[2018-03-27] MEDS: TORSEMIDE 20 MG TABLET PO SCH (16:41)
[2018-03-27] MEDS: LEVETIRACETAM 500 MG TABLET PO SCH (16:41)
[2018-03-27] MEDS: FLECAINIDE ACETATE 100 MG TABLET PO SCH ×2 (16:42→22:17)
[2018-03-27] MEDS: TRIAMTERENE/HYDROCHLOROTHIAZID 75-50 MG TABLET PO SCH (16:42)
[2018-03-27] MEDS: ASCORBIC ACID 500 MG TABLET PO SCH (16:42)
[2018-03-27] MEDS: MULTIVITAMIN TABLET PO SCH (16:42)
[2018-03-27] MEDS: DULOXETINE HCL 30 MG CAPSULE.DR PO SCH (17:05)
[2018-03-27 17:07] LABS: ABSOLUTE LYMPHOCYTES (AUTO) 2.1 10^3/uL (0.5-4.7); ABSOLUTE MONOCYTES (AUTO) 1.1 10^3/uL (0.1-1.4); ABSOLUTE NEUT (AUTO) 7.2 10^3/uL (1.7-8.2); BASOPHILS % (AUTO) 0.4 % (0-2); EOSINOPHILS % (AUTO) 0.4 % (0-6); HEMATOCRIT 36.2 % (36.0-47.0); LYMPHOCYTES % (AUTO) 19.7 % (13-45); MEAN CORPUSCULAR HEMOGLOBIN 28.6 pg (27.0-33.4); MEAN CORPUSCULAR HGB CONC 33.1 g/dL (32.0-36.0); MEAN CORPUSCULAR VOLUME 86 fl (80-97); MONOCYTES % (AUTO) 10.4 % (3-13); PLATELET COUNT 344 10^3/uL (150-450); RED BLOOD COUNT 4.19 10^6/uL (3.72-5.28); RED CELL DISTRIBUTION WIDTH 15.6 % (11.5-14.0); SEGMENTED NEUTROPHILS % (AUTO) 69.1 % (42-78); TOTAL CELLS COUNTED % (AUTO) 100 %; WHITE BLOOD COUNT 10.4 10^3/uL (4.0-10.5)
[2018-03-27 17:08] LABS: INTERNATIONAL RATION (INR) 1.09; PROTHROMBIN TIME 14.6 SEC (11.4-15.4)
[2018-03-27 17:09] LABS: PARTIAL THROMBOPLASTIN TIME 38.2 SEC (23.5-35.8)
[2018-03-27] MEDS: HEPARIN SODIUM,PORCINE/D5W 25,000 UNIT/250 ML RTUINJ IV PRN (17:44)
[2018-03-27 18:28] LABS: APPEARANCE,URINE CLEAR; BILIRUBIN,URINE NEGATIVE (NEGATIVE); COLOR,URINE YELLOW; GLUCOSE, URINE NEGATIVE (NEGATIVE); KETONES,URINE NEGATIVE (NEGATIVE); LEUKOCYTE ESTERASE,URINE TRACE (NEGATIVE); NITRITE,URINE NEGATIVE (NEGATIVE); PROTEIN,URINE NEGATIVE (NEGATIVE); URINE SPECIFIC GRAVITY 1.012
[2018-03-27] MEDS: ATORVASTATIN CALCIUM 20 MG TABLET PO SCH (22:16)
[2018-03-27] MEDS: FAMOTIDINE 20 MG TABLET PO SCH (22:16)
[2018-03-28] MEDS: BUPROPION HCL 75 MG TABLET PO SCH ×3 (06:11→21:36)
[2018-03-28 07:13] LABS: ABSOLUTE BASOPHILS # (AUTO) 0.1 10^3/uL (0.0-0.2); ABSOLUTE EOSINOPHILS # (AUTO) 0.1 10^3/uL (0.0-0.6); ABSOLUTE LYMPHOCYTES (AUTO) 1.9 10^3/uL (0.5-4.7); ABSOLUTE MONOCYTES (AUTO) 1.3 10^3/uL (0.1-1.4); ABSOLUTE NEUT (AUTO) 8.4 10^3/uL (1.7-8.2); BASOPHILS % (AUTO) 1.1 % (0-2); EOSINOPHILS % (AUTO) 0.8 % (0-6); HEMATOCRIT 35.2 % (36.0-47.0); HEMOGLOBIN 11.7 g/dL (12.0-15.5); LYMPHOCYTES % (AUTO) 16.4 % (13-45); MEAN CORPUSCULAR HEMOGLOBIN 28.4 pg (27.0-33.4); MEAN CORPUSCULAR HGB CONC 33.2 g/dL (32.0-36.0); MEAN CORPUSCULAR VOLUME 86 fl (80-97); PLATELET COUNT 309 10^3/uL (150-450); RED BLOOD COUNT 4.11 10^6/uL (3.72-5.28); SEGMENTED NEUTROPHILS % (AUTO) 70.7 % (42-78); TOTAL CELLS COUNTED % (AUTO) 100 %; WHITE BLOOD COUNT 11.9 10^3/uL (4.0-10.5)
[2018-03-28 07:40] LABS: ALANINE AMINOTRANSFERASE 22 U/L (9-52); ALBUMIN 2.5 g/dL (3.5-5.0); ALKALINE PHOSPHATASE 69 U/L (38-126); ANION GAP 9 (5-19); ASPARTATE AMINO TRANSFERASE 26 U/L (14-36); BILIRUBIN,DIRECT 0.4 mg/dL (0.0-0.4); BILIRUBIN,TOTAL 0.9 mg/dL (0.2-1.3); BLOOD UREA NITROGEN 14 mg/dL (7-20); CALCIUM 8.2 mg/dL (8.4-10.2); CARBON DIOXIDE 30 mmol/L (22-30); CHLORIDE 99 mmol/L (98-107); GLUCOSE 100 mg/dL (75-110); POTASSIUM 3.9 mmol/L (3.6-5.0); SODIUM 137.6 mmol/L (137-145); TOTAL PROTEIN 4.9 g/dL (6.3-8.2)
[2018-03-28] MEDS: NORMAL SALINE 1000 ML 1,000 ML IV PRN ×2 (08:12→17:24)
[2018-03-28] MEDS: LEVETIRACETAM 500 MG TABLET PO SCH (10:45)
[2018-03-28] MEDS: MORPHINE SULFATE SR 30 MG TABLET PO SCH ×2 (10:45→21:37)
[2018-03-28] MEDS: ASCORBIC ACID 500 MG TABLET PO SCH (10:45)
[2018-03-28] MEDS: MULTIVITAMIN TABLET PO SCH (10:45)
[2018-03-28] MEDS: TRIAMTERENE/HYDROCHLOROTHIAZID 75-50 MG TABLET PO SCH (10:46)
[2018-03-28] MEDS: DILTIAZEM HCL 60 MG TABLET PO SCH ×2 (10:46→21:38)
[2018-03-28] MEDS: FLUCONAZOLE 100 MG TABLET PO SCH (10:46)
[2018-03-28] MEDS: FLECAINIDE ACETATE 100 MG TABLET PO SCH ×2 (10:47→21:37)
[2018-03-28] MEDS: NYSTATIN/TRIAMCIN CREAM 15 GM TP SCH ×4 (10:47→21:35)
[2018-03-28] MEDS ORDERED: LEVOFLOXACIN 500 MG/D5W RTU 500 MG/100 ML RTUPB IV ONE (12:30)
--- NOTE | 2018-03-28 12:35 | PDOC PROGRESS REPORT ---
Subjective Progress Note for:: 03/28/18 Subjective:: 87 year old female with history of atrial fibrillation on Eliquis, high blood pressure, anxiety, depression, no history of congestive heart failure brought in by family members after noticing bright colored blood in the stool for the last 3 days. She has this problem on and off but for the last 3 days she is having the loose stools in association with heavy bright colored blood in the stool. In the emergency room the workup was done and patient was found to be in A. fib with RVR and hemoglobin is 12.6 the case was discussed with Dr. Hou underliner he is going to see the patient tomorrow for further evaluation. medical consult was called for possible admission to the telemetry. I went to talk to the son and the patient, patient is alert and awake oriented not in distress denies any complaints at all for the last 3-4 days noticed bright colored blood in the stool not associated with abdominal pain no nausea no vomiting no constipation but she is having the loose stools blood . Denies any headaches dizzy spells denies any falls. No fever no cough no cold no chest pains. Patient wants to be full code. 03/25/[id number]-old female with history of atrial fibrillation on Eliquis admitted for lower GI bleed. Passing bright colored blood in the stool. No acute events in the last 24 hours. Hemoglobin on admission is 12.6 today it is 11.4. Consultation with cardiology and GI was done. Dr. Box wants to hold Eliquis for possible colonoscopy. Patient is going to be placed on heparin bridge. Heparin is going to be stopped 6 hours prior to the procedure. 03/26/2018 67-year-old female with history of atrial fibrillation on Eliquis admitted for lower GI bleed. Cardiology consult was done, GI consult was done. Patient is on heparin bridge since yesterday and Eliquis was discontinued. Patient is going for colonoscopy tomorrow. Appreciate Dr. Box's recommendations. Patient is complaining of chronic shoulder pains she is on MS Contin twice a day and added Percocet 06/19/2024 every 6 as needed for pain. 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 Dr. Hou spoke to me this morning he said he does not want to do any further procedures because of the ischemic colitis increased risk of perforation. I spoke to Dr. loco neurologist minute ago he said daily rectal tube until Friday and will make a decision whether to remove the rectal tube are not if the volvulus recurs then will have a discussion with the family again about comfort care measures only. Platelet agree with him. No acute events in the last 24 hours. 03/28/2018-this elderly female admitted with bright colored blood per rectum. She has history of atrial fibrillation on Eliquis. She was placed on heparin drip as a bridge while she is off the Eliquis in preparation for colonoscopy. In the meantime she had developed a volvulus. Went to [place] colonoscopy was done and there is a suggestion for possible ischemic colitis. Rectal tube was placed and volvulus resolved at this time. I Had a long discussion with the son again today and explained to him that was once the rectal tube was removed there is a possibility that volvulus may recur, because of the patient's age and comorbidit ies surgery can be very complicated and patient name may not able to survive the major surgery. The son understood my concerns and once decisions have we be taken about the surgery he thinks they may opt for comfort care measures only. Reason For Visit: LOWER GI BLEED Physical Exam Vital Signs: Temp Pulse Resp BP Pulse Ox 99.0 F 73 16 125/50 L 97 03/28/18 08:49 03/28/18 08:49 03/28/18 08:49 03/28/18 08:49 03/28/18 08:49 Intake & Output 03/27/18 03/28/18 03/29/18 06:59 06:59 06:59 Intake Total 1039 1317 990 Output Total 2800 3850 Balance -3913 -9787 990 Weight 103 kg 100.3 kg General appearance: PRESENT: no acute distress Head exam: PRESENT: atraumatic Eye exam: PRESENT: PERRLA Mouth exam: PRESENT: moist, tongue midline Neck exam: ABSENT: carotid bruit, JVD, lymphadenopathy, thyromegaly Respiratory exam: PRESENT: decreased breath sounds Cardiovascular exam: PRESENT: irregular rhythm, systolic murmur, tachycardia GI/Abdominal exam: PRESENT: normal bowel sounds, soft, other - Patient has a rectal tube.. ABSENT: distended, guarding, mass, organolmegaly, rebound, tenderness Extremities exam: PRESENT: full ROM. ABSENT: calf tenderness, clubbing, pedal edema Neurological exam: PRESENT: alert, awake, oriented to person, oriented to place, oriented to time, oriented to situation, CN II-XII grossly intact. ABSENT: motor sensory deficit Psychiatric exam: PRESENT: appropriate affect, normal mood. ABSENT: homicidal ideation, suicidal ideation Results Laboratory Results: 03/28/18 05:56 03/28/18 05:56 03/27/18 03/27/18 03/28/18 16:15 18:00 01:16 WBC 10.4 RBC 4.19 Hgb 12.0 Hct 36.2 MCV 86 MCH 28.6 MCHC 33.1 RDW 15.6 H Plt Count 344 Seg Neutrophils % 69.1 Lymphocytes % 19.7 Monocytes % 10.4 Eosinophils % 0.4 Basophils % 0.4 Absolute Neutrophils 7.2 Absolute Lymphocytes 2.1 Absolute Monocytes 1.1 Absolute Eosinophils 0.0 Absolute Basophils 0.0 Sodium Potassium Chloride Carbon Dioxide Anion Gap BUN Creatinine Est GFR ( Amer) Est GFR (Non-Af Amer) Glucose Calcium Magnesium Total Bilirubin AST ALT Alkaline Phosphatase Total Protein Albumin Urine Color YELLOW Urine Appearance CLEAR Urine pH 7.0 Ur Specific [place] 1.012 Urine Protein NEGATIVE Urine Glucose (UA) NEGATIVE Urine Ketones NEGATIVE Urine Blood NEGATIVE Urine Nitrite NEGATIVE Ur Leukocyte Esterase TRACE H Urine WBC (Auto) 5 Urine RBC (Auto) 1 Stool Occult Blood POSITIVE 03/28/18 03/28/18 05:56 05:56 WBC 11.9 H RBC 4.11 Hgb 11.7 L Hct 35.2 L MCV 86 MCH 28.4 MCHC 33.2 RDW 16.0 H Plt Count 309 Seg Neutrophils % 70.7 Lymphocytes % 16.4 Monocytes % 11.0 Eosinophils % 0.8 Basophils % 1.1 Absolute Neutrophils 8.4 H Absolute Lymphocytes 1.9 Absolute Monocytes 1.3 Absolute Eosinophils 0.1 Absolute Basophils 0.1 Sodium 137.6 Potassium 3.9 Chloride 99 Carbon Dioxide 30 Anion Gap 9 BUN 14 Creatinine 0.68 Est GFR ( Amer) > 60 Est GFR (Non-Af Amer) > 60 Glucose 100 Calcium 8.2 L Magnesium 1.8 Total Bilirubin 0.9 AST 26 ALT 22 Alkaline Phosphatase 69 Total Protein 4.9 L Albumin 2.5 L Urine Color Urine Appearance Urine pH Ur Specific [place] Urine Protein Urine Glucose (UA) Urine Ketones Urine Blood Urine Nitrite Ur Leukocyte Esterase Urine WBC (Auto) Urine RBC (Auto) Stool Occult Blood 03/24/18 03/24/18 03/24/18 13:00 13:00 13:53 Creatine Kinase 21 L CK-MB (CK-2) 0.63 NT-Pro-B Natriuret Pep 209 03/24/18 03/24/18 03/25/18 21:46 21:46 04:18 Creatine Kinase 32 25 L CK-MB (CK-2) 1.20 NT-Pro-B Natriuret Pep 03/25/18 04:18 Creatine Kinase CK-MB (CK-2) 0.96 NT-Pro-B Natriuret Pep Impressions: Chest X-Ray 03/24/18 00:00 IMPRESSION: No evidence of acute cardiopulmonary process. Abdomen/Pelvis CT 03/26/18 00:00 IMPRESSION: Sigmoid diverticulitis. Acute Abdomen Series 03/26/18 00:00 IMPRESSION: Severe constipation. Possible sigmoid volvulus as described. Recommend CT for further evaluation. KUB X-Ray 03/26/18 21:21 IMPRESSION: Rectal tube/Guerrero catheter in place. Nonspecific bowel gas pattern. copyright 2010 [employer]- All Rights Reserved Assessment & Plan - Diagnosis (1) Rectal bleeding Is this a current diagnosis for this admission?: Yes Plan: 03/24/2018 plan is to admit the patient as inpatient in telemetry. Consultation with Dr. Hou was placed, consultation with Dr. Zarate was placed. Going to keep the patient n.p.o. from midnight. Eliquis will be on hold. Plan to restart her home medications. Going to type and crossmatch 1 unit and hold 1 unit of prbc for now. Plan to do the regular CBC on daily basis. Family wants her to be full code. Placed on GI prophylaxis famotidine 20 mg twice a day. She was placed on SCDs no pharmacologic prophylaxis because of active bleeding. Discussed the advantages and disadvantages of withholding Eliquis. Son understood verbalize response. He prefers to her mom on Eliquis to prevent further strokes in the future. 03/25/2018-patient with history of atrial fibrillation on Eliquis admitted for rectal bleeding. GI consult was done cardiology consult was done. Be going to stop Eliquis and place the patient on heparin protocol in preparation for possible EGD or colonoscopy. Plan is to hold the heparin drip was 6 hours prior to the procedure. Latest hemoglobin is 11.4. 1 unit of PRBC on hold. 03/26/2018-patient was admitted with bright colored blood per rectum. She has history of atrial fibrillation on Eliquis. Eliquis was stopped and the patient is presently on heparin drip. She is going for colonoscopy tomorrow. Latest hemoglobin is 11.4 stable. 03/27/2018-patient admitted with bright colored blood per rectum. Her hemoglobin in early February is 14.6 latest hemoglobin is 11.5. Acute blood loss anemia most likely secondary to rectal bleed. 03/28/2018-patient has a rectal tube now she has a colonoscopy there is suggestion that patient has ischemic colitis Dr. Hou is not preferred to do the further procedures because of the high risk of perforation I agree with his impression. Patient his hemoglobin is 11.7. It was 14.6 in the first week of February. This may be due to a "blood loss anemia secondary to rectal bleed. Plan is to con tinue the present management. (2) Atrial fibrillation Qualifiers: Atrial fibrillation type: chronic Qualified Code(s): I48.2 - Chronic atrial fibrillation Is this a current diagnosis for this admission?: Yes Plan: 03/24/2018-patient has chronic history of atrial fibrillation and Eliquis. Admitted for lower GI bleed. Eliquis will be held for today. We are going to keep her n.p.o. from midnight for possible colonoscopy tomorrow. Explained to the son, we may have to use heparin iv as a bridge while the patient is off Eliquis. But the son to does not want her mom to be on heparin drip. Patient is on flecainide and diltiazem at home plan is to resume those medications during the hospital stay. 03/25/2018-Eliquis was discontinued for atrial fibrillation and patient is on heparin drip. Plan is to continue the present management. 03/26/2018-patient has history of atrial fibrillation on Eliquis, which was on hold. Presently on heparin bridge and it will be stopped 6 hours prior to colonoscopy. 03/27/2018-patient has history of atrial fibrillation on Eliquis. Patient is presently on heparin drip. Eliquis is on hold. 03/28/2018-patient has history of atrial fibrillation on Eliquis admitted with a GI bleed presently she is on heparin drip. Plan is to continue to coordinate with the GI and surgical team for further management. (3) HTN (hypertension) Is this a current diagnosis for this admission?: Yes Plan: 03/24/2018 patient has history of hypertension blood pressure today is 119/60 st able. Plan is to resume her home medications. 03/25/2018-patient blood pressure today is 111/46. Stable. 03/26/2018 patient has history of hypertension. Latest blood pressure is 147/65. Stable. Plan is to continue her home medications. She is presently on torsemide 10 mg every 3 days, diltiazem 60 mg every 12 hours, flecainide 50 mg every 12 hours, triamterene/hydrochlorothiazide 1 tablet daily. 03/27/2018-patient has a history of hypertension. Blood pressure today is 1 3375. Stable. Plan is to continue the present management. 03/28/2018-patient has history of hypertension and her blood pressure today is 125/50 stable. Presently on torsemide 10 mg p.o. every 3 days, diltiazem 60 mg every 12 hours, flecainide 50 mg every 12 hours, triamterene/hydrochlorothiazide 1 tablet daily. I am going to hold triamterene hydrochlorothiazide and continue to monitor the blood pressures. (4) Depression Is this a current diagnosis for this admission?: Yes (5) Chronic pain syndrome Is this a current diagnosis for this admission?: Yes Plan: 03/26/2018 patient has history of chronic pain syndrome on MS Contin twice a day. She is also on tramadol. Still complaining of shoulder pains. Started on Percocet 5/25 mg every 6 as needed for pain. 03/27/2018-patient has history of chronic pain syndrome on MS Contin twice daily. She is also on tramadol. Yesterday she was started on Percocet 5/25 mg every 6 as needed for pain. May be she has chronic pain with opioid dependency. 03/28/2018-patient history of chronic pain syndrome on MS Contin. She is also on tramadol started on Percocets every 6 as needed. Most likely she has chronic pain with opioid dependency. - Time Time Spent with patient: 15-24 minutes Medications reviewed and adjusted accordingly: Yes Anticipated discharge: SNF
[2018-03-28] MEDS: LEVOFLOXACIN 500 MG TABLET PO SCH (14:56)
--- NOTE | 2018-03-28 14:58 | PDOC PROGRESS REPORT ---
Subjective Progress Note for:: 03/28/18 Subjective:: Has liquid BM More alert and cheerful Reason For Visit: LOWER GI BLEED Physical Exam Vital Signs: Temp Pulse Resp BP Pulse Ox 99.0 F 73 16 125/50 L 97 03/28/18 08:49 03/28/18 08:49 03/28/18 08:49 03/28/18 08:49 03/28/18 08:49 Intake & Output 03/27/18 03/28/18 03/29/18 06:59 06:59 06:59 Intake Total 1039 1317 990 Output Total 2800 3850 Balance -0993 -9343 990 Weight 103 kg 100.3 kg Exam: abdomen is distended but soft and non tender Chest tube as a stent for the sigmoid volvulus in place Start clears Results Laboratory Results: 03/28/18 05:56 03/28/18 05:56 03/27/18 03/27/18 03/28/18 16:15 18:00 01:16 WBC 10.4 RBC 4.19 Hgb 12.0 Hct 36.2 MCV 86 MCH 28.6 MCHC 33.1 RDW 15.6 H Plt Count 344 Seg Neutrophils % 69.1 Lymphocytes % 19.7 Monocytes % 10.4 Eosinophils % 0.4 Basophils % 0.4 Absolute Neutrophils 7.2 Absolute Lymphocytes 2.1 Absolute Monocytes 1.1 Absolute Eosinophils 0.0 Absolute Basophils 0.0 Sodium Potassium Chloride Carbon Dioxide Anion Gap BUN Creatinine Est GFR ( Amer) Est GFR (Non-Af Amer) Glucose Calcium Magnesium Total Bilirubin AST ALT Alkaline Phosphatase Total Protein Albumin Urine Color YELLOW Urine Appearance CLEAR Urine pH 7.0 Ur Specific [place] 1.012 Urine Protein NEGATIVE Urine Glucose (UA) NEGATIVE Urine Ketones NEGATIVE Urine Blood NEGATIVE Urine Nitrite NEGATIVE Ur Leukocyte Esterase TRACE H Urine WBC (Auto) 5 Urine RBC (Auto) 1 Stool Occult Blood POSITIVE 03/28/18 03/28/18 05:56 05:56 WBC 11.9 H RBC 4.11 Hgb 11.7 L Hct 35.2 L MCV 86 MCH 28.4 MCHC 33.2 RDW 16.0 H Plt Count 309 Seg Neutrophils % 70.7 Lymphocytes % 16.4 Monocytes % 11.0 Eosinophils % 0.8 Basophils % 1.1 Absolute Neutrophils 8.4 H Absolute Lymphocytes 1.9 Absolute Monocytes 1.3 Absolute Eosinophils 0.1 Absolute Basophils 0.1 Sodium 137.6 Potassium 3.9 Chloride 99 Carbon Dioxide 30 Anion Gap 9 BUN 14 Creatinine 0.68 Est GFR ( Amer) > 60 Est GFR (Non-Af Amer) > 60 Glucose 100 Calcium 8.2 L Magnesium 1.8 Total Bilirubin 0.9 AST 26 ALT 22 Alkaline Phosphatase 69 Total Protein 4.9 L Albumin 2.5 L Urine Color Urine Appearance Urine pH Ur Specific [place] Urine Protein Urine Glucose (UA) Urine Ketones Urine Blood Urine Nitrite Ur Leukocyte Esterase Urine WBC (Auto) Urine RBC (Auto) Stool Occult Blood 03/24/18 03/24/18 03/24/18 13:00 13:00 13:53 Creatine Kinase 21 L CK-MB (CK-2) 0.63 NT-Pro-B Natriuret Pep 209 03/24/18 03/24/18 03/25/18 21:46 21:46 04:18 Creatine Kinase 32 25 L CK-MB (CK-2) 1.20 NT-Pro-B Natriuret Pep 03/25/18 04:18 Creatine Kinase CK-MB (CK-2) 0.96 NT-Pro-B Natriuret Pep Impressions: Chest X-Ray 03/24/18 00:00 IMPRESSION: No evidence of acute cardiopulmonary process. Abdomen/Pelvis CT 03/26/18 00:00 IMPRESSION: Sigmoid diverticulitis. Acute Abdomen Series 03/26/18 00:00 IMPRESSION: Severe constipation. Possible sigmoid volvulus as described. Recommend CT for further evaluation. KUB X-Ray 03/26/18 21:21 IMPRESSION: Rectal tube/Guerrero catheter in place. Nonspecific bowel gas pattern. copyright 2011 [employer]- All Rights Reserved Assessment & Plan - Time Time Spent with patient: 15-24 minutes - Inpatient Certification Medical Necessity: Need For IV Fluids, Need for Surgery, Risk of Complication if Not Cared For in Hospital - Plan Summary Plan Summary: Had a long talk with son yesterday. Told him his mother will likely need surgery for the sigmoid volvulus. He is not sure if he wants any surgical intervention for his mom who has worsening dementia. He is even considering DNR status. Will try to give some bowel prep over weekend. By Friday ,hopefully, we'll get further decision from son.
[2018-03-28] MEDS: DULOXETINE HCL 30 MG CAPSULE.DR PO SCH (17:24)
[2018-03-28] MEDS: HEPARIN SODIUM,PORCINE/D5W 25,000 UNIT/250 ML RTUINJ IV PRN (17:25)
--- NOTE | 2018-03-28 20:10 | RADIOLOGY REPORT (SQ) ---
EXAM DESCRIPTION: ACUTE ABDOMEN SERIES COMPLETED DATE/TIME: 03/28/2018 7:37 pm REASON FOR STUDY: volvulus COMPARISON: None. NUMBER OF VIEWS: Three views. TECHNIQUE: Frontal chest, supine abdomen and upright/decubitus abdomen radiographic images acquired. LIMITATIONS: None. FINDINGS: CHEST: . The heart appears borderline enlarged with aortic atherosclerosis. Left basilar infiltrate and pleural thickening. FREE AIRNo pneumoperitoneum BOWEL GAS PATTERN: Overall decrease in fecal material within the colon since 03/26/2018. CALCIFICATIONS: No suspicious calcifications. HARDWARE: None in the abdomen. SOFT TISSUES: No gross mass or suggestion of organomegaly. BONES: No acute fracture. No worrisome bone lesions. Status post total right hip prosthesis. OTHER: Surgical clips right upper quadrant most likely from cholecystectomy. Rectal tube in place. Guerrero catheter in place. IMPRESSION: Interval decrease in fecal material within the colon. TECHNICAL DOCUMENTATION: JOB ID: [id number] 2010 [employer]- All Rights Reserved Reading location - IP/workstation name: [email or web address]
[2018-03-28] MEDS: ATORVASTATIN CALCIUM 20 MG TABLET PO SCH (21:35)
[2018-03-28] MEDS: FAMOTIDINE 20 MG TABLET PO SCH (21:36)
--- NOTE | 2018-03-28 23:17 | Progress Note ---
Provider Note Provider Note: CARDIOLOGY PROGRESS NOTE by Dr. Veronica Ball on 03/28/2018. SUBJECTIVE: The patient still has a flatus tube in she had reduction of volvulus by sigmoidoscopy yesterday. She does complain of abdominal pain. She has not had a bowel movement. There is no chest pain or discomfort. The patient continues to be in sinus rhythm. The patient will be started back on IV heparin. If the patient continues to have recurrence of the volvulus, then the patient may end up having surgery. PHYSICAL EXAMINATION: The patient is morbidly obese. At present in some distress due to abdominal pain. She is well-groomed Selected Entries 03/28/18 08:49 Temperature 99.0 F Temperature Oral Source Pulse Rate 73 Respiratory 16 Rate Blood Pressure 125/50 L Blood Pressure 75 Mean BP Location Left Arm BP Position Supine O2 Sat by Pulse 97 Oximetry Oxygen Flow 3.00 Rate Oxygen Delivery Nasal Cannula Method HEAD: Is atraumatic normocephalic. EYES: Pupils equal round regular reactive to light accommodation. Ocular movements are normal. There is no conjunctival pallor. There is no scleral icterus. EARS: Tympanic membranes are intact. External auditory canals are clear. NOSE: There is no deviated nasal septum. There is no inflammation nasal mucous membranes. MOUTH: Mucous nares and mouth are moist. Tongue is moist. There is no bleeding from the gums. There is no ulcers in the mouth. THROAT: There is no redness of the oropharynx. There is no exudates. SKIN: There is no particular ecchymosis. There is no skin lesions or skin rashes. NECK: Is supple. There is no JVD. Carotids are equal there is no bruit. There is no lymphadenopathy. There is no goiter. There is no accessory muscle respiration use. LUNGS: Clear to auscultation percussion, without any rhonchi rales or wheezing. There is no chest wall tenderness on palpation. HEART: S1-S2 is heard. S1 is of normal intensity. There is no S3 gallop. There is systolic murmur left sternal border and the apex there is no rub. ABDOMEN: Is obese. There is no hepatosplenomegaly. Abdomen is distended. Bowel sounds are very much decreased. There is minimal tenderness in the left lower quadrant. EXTREMITIES: Femorals are deep. Femorals are diminished. Leg pulses are mildly diminished. There is no femoral bruits. There is no pedal edema. There is no DVT or cellulitis. There is no calf tenderness. 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 PSYCHIATRIC: The patient does not appear to be agitated or anxious. 03/28/18 03/28/18 03/28/18 01:16 05:56 05:56 WBC 11.9 H RBC 4.11 Hgb 11.7 L Hct 35.2 L MCV 86 MCH 28.4 MCHC 33.2 RDW 16.0 H Plt Count 309 APTT Sodium 137.6 Potassium 3.9 Chloride 99 Carbon Dioxide 30 Anion Gap 9 BUN 14 Creatinine 0.68 Est GFR (Non-Af Amer) > 60 Glucose 100 Calcium 8.2 L Magnesium 1.8 Total Bilirubin 0.9 Direct Bilirubin 0.4 Neonat Total Bilirubin Not Reportable Neonat Direct Bilirubin Not Reportable Neonat Indirect Bili Not Reportable AST 26 ALT 22 Alkaline Phosphatase 69 Total Protein 4.9 L Albumin 2.5 L Stool Occult Blood POSITIVE 03/28/18 05:56 WBC RBC Hgb Hct MCV MCH MCHC RDW Plt Count APTT 85.6 H Sodium Potassium Chloride Carbon Dioxide Anion Gap BUN Creatinine Est GFR (Non-Af Amer) Glucose Calcium Magnesium Total Bilirubin Direct Bilirubin Neonat Total Bilirubin Neonat Direct Bilirubin Neonat Indirect Bili AST ALT Alkaline Phosphatase Total Protein Albumin Stool Occult Blood IMPRESSION/RECOMMENDATION: 1. Volvulus: Status post reduction with sigmoidoscopy. Patient has a flatus tube. The patient for re-sigmoidoscopy/colonoscopy tomorrow. 2. Paroxysmal atrial fibrillation: At present in sinus rhythm. Continue flecainide. Patient will be restarted on heparin bridge. Continue Cardizem. 3. Hypertension: Continue the patient on Cardizem. 4. Hyperlipidemia. 5. Most likely patient has chronic kidney disease stage III 6. Dementia. 7 prior history of 2 TIA's Discussed with attending physician on the case and the son. Management plan discussed with the other caregiving providers on the case. Medications reviewed.. Medical decision making is of high complexity. 40 minutes spent on this patient with more than 50% time spent in direct patient care. We will follow
[2018-03-29] MEDS: NORMAL SALINE 1000 ML 1,000 ML IV PRN ×2 (03:40→13:56)
[2018-03-29] MEDS: BUPROPION HCL 75 MG TABLET PO SCH ×3 (05:33→21:23)
--- NOTE | 2018-03-29 09:46 | PDOC PROGRESS REPORT ---
Subjective Progress Note for:: 03/29/18 Reason For Visit: LOWER GI BLEED Physical Exam Vital Signs: Temp Pulse Resp BP Pulse Ox 98.9 F 67 17 129/55 H 94 03/29/18 07:41 03/29/18 07:41 03/29/18 07:41 03/29/18 07:41 03/29/18 07:41 Intake & Output 03/28/18 03/29/18 03/30/18 06:59 06:59 06:59 Intake Total 1317 4008 144 Output Total 3850 1800 Balance -2533 2208 144 Weight 100.3 kg 100.3 kg General appearance: PRESENT: no acute distress Respiratory exam: PRESENT: clear to auscultation brianne GI/Abdominal exam: PRESENT: distended - rectal tube with stool in and around tube will dc rectal tube this am, soft Results Laboratory Results: 03/28/18 05:56 03/28/18 05:56 03/24/18 03/24/18 03/24/18 13:00 13:00 13:53 Creatine Kinase 21 L CK-MB (CK-2) 0.63 NT-Pro-B Natriuret Pep 209 03/24/18 03/24/18 03/25/18 21:46 21:46 04:18 Creatine Kinase 32 25 L CK-MB (CK-2) 1.20 NT-Pro-B Natriuret Pep 03/25/18 04:18 Creatine Kinase CK-MB (CK-2) 0.96 NT-Pro-B Natriuret Pep Impressions: Chest X-Ray 03/24/18 00:00 IMPRESSION: No evidence of acute cardiopulmonary process. Abdomen/Pelvis CT 03/26/18 00:00 IMPRESSION: Sigmoid diverticulitis. KUB X-Ray 03/26/18 21:21 IMPRESSION: Rectal tube/Guerrero catheter in place. Nonspecific bowel gas pattern. copyright 2011 [employer]- All Rights Reserved Acute Abdomen Series 03/28/18 00:00 IMPRESSION: Interval decrease in fecal material within the colon. Assessment & Plan - Plan Summary Plan Summary: will dc rectal tube. family has discussed an dnr status with me and with medicine they wish to make pt a dnr they do not want her to have surgery they are interested in completing dnr paper work today and would like to discuss hospice I will put in a consuslt for hospice. please contact surgery for any further problems.
[2018-03-29] MEDS: FLUCONAZOLE 100 MG TABLET PO SCH (10:56)
[2018-03-29] MEDS: LEVETIRACETAM 500 MG TABLET PO SCH (10:56)
[2018-03-29] MEDS: DILTIAZEM HCL 60 MG TABLET PO SCH ×2 (10:56→21:24)
[2018-03-29] MEDS: MULTIVITAMIN TABLET PO SCH (10:56)
[2018-03-29] MEDS: FLECAINIDE ACETATE 100 MG TABLET PO SCH ×2 (10:56→21:25)
[2018-03-29] MEDS: MORPHINE SULFATE SR 30 MG TABLET PO SCH ×2 (10:56→21:23)
[2018-03-29] MEDS: LEVOFLOXACIN 500 MG TABLET PO SCH (10:57)
[2018-03-29] MEDS: NYSTATIN/TRIAMCIN CREAM 15 GM TP SCH ×4 (10:57→21:24)
[2018-03-29] MEDS: ASCORBIC ACID 500 MG TABLET PO SCH (10:57)
--- NOTE | 2018-03-29 12:14 | PDOC PROGRESS REPORT ---
Subjective Progress Note for:: 03/29/18 Subjective:: 87 year old female with history of atrial fibrillation on Eliquis, high blood pressure, anxiety, depression, no history of congestive heart failure brought in by family members after noticing bright colored blood in the stool for the last 3 days. She has this problem on and off but for the last 3 days she is having the loose stools in association with heavy bright colored blood in the stool. In the emergency room the workup was done and patient was found to be in A. fib with RVR and hemoglobin is 12.6 the case was discussed with Dr. Hou protective signal installer he is going to see the patient tomorrow for further evaluation. medical consult was called for possible admission to the telemetry. I went to talk to the son and the patient, patient is alert and awake oriented not in distress denies any complaints at all for the last 3-4 days noticed bright colored blood in the stool not associated with abdominal pain no nausea no vomiting no constipation but she is having the loose stools blood . Denies any headaches dizzy spells denies any falls. No fever no cough no cold no chest pains. Patient wants to be full code. 03/25/[id number]-jymi-old female with history of atrial fibrillation on Eliquis admitted for lower GI bleed. Passing bright colored blood in the stool. No acute events in the last 24 hours. Hemoglobin on admission is 12.6 today it is 11.4. Consultation with cardiology and GI was done. Dr. Box wants to hold Eliquis for possible colonoscopy. Patient is going to be placed on heparin bridge. Heparin is going to be stopped 6 hours prior to the procedure. 03/26/2018 67-year-old female with history of atrial fibrillation on Eliquis admitted for lower GI bleed. Cardiology consult was done, GI consult was done. Patient is on heparin bridge since yesterday and Eliquis was discontinued. Patient is going for colonoscopy tomorrow. Appreciate Dr. Box's recommendations. Patient is complaining of chronic shoulder pains she is on MS Contin twice a day and added Percocet 06/19/2024 every 6 as needed for pain. 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 Dr. Hou spoke to me this morning he said he does not want to do any further procedures because of the ischemic colitis increased risk of perforation. I spoke to Dr. loco neurologist minute ago he said daily rectal tube until Friday and will make a decision whether to remove the rectal tube are not if the volvulus recurs then will have a discussion with the family again about comfort care measures only. Platelet agree with him. No acute events in the last 24 hours. 03/28/2018-this elderly female admitted with bright colored blood per rectum. She has history of atrial fibrillation on Eliquis. She was placed on heparin drip as a bridge while she is off the Eliquis in preparation for colonoscopy. In the meantime she had developed a volvulus. Went to OR colonoscopy was done and there is a suggestion for possible ischemic colitis. Rectal tube was placed and volvulus resolved at this time. I Had a long discussion with the son again today and explained to him that was once the rectal tube was removed there is a possibility that volvulus may recur, because of the patient's age and comorbidit ies surgery can be very complicated and patient name may not able to survive the major surgery. The son understood my concerns and once decisions have we be taken about the surgery he thinks they may opt for comfort care measures only. 03/29/2018-no acute events in the last 24 hours. Family is concerned about abdominal distention yesterday acute abdominal series was done there is no mentioning of any volvulus. Decreasing fecal matter. Patient is afebrile. Family had a long discussion with the surgeons and me this morning rectal tube was removed patient is going to be DNR/DNI as per the family request. Her son wants to take her home today if possible with hospice care. spot worker co nsult was requested and DNR orders were placed in the chart. Son specifically asking us to make the patient comfortable pain-free and anxiety. Reason For Visit: LOWER GI BLEED Physical Exam Vital Signs: Temp Pulse Resp BP Pulse Ox 98.9 F 67 17 129/55 H 94 03/29/18 07:41 03/29/18 07:41 03/29/18 07:41 03/29/18 07:41 03/29/18 07:41 Intake & Output 03/28/18 03/29/18 03/30/18 06:59 06:59 06:59 Intake Total 1317 4008 144 Output Total 3850 1800 Balance -2533 2208 144 Weight 100.3 kg 100.3 kg General appearance: PRESENT: no acute distress Head exam: PRESENT: atraumatic Eye exam: PRESENT: PERRLA Mouth exam: PRESENT: moist Neck exam: ABSENT: carotid bruit, JVD, lymphadenopathy, thyromegaly Respiratory exam: PRESENT: clear to auscultation brianne. ABSENT: rales, rhonchi, wheezes Cardiovascular exam: PRESENT: systolic murmur, tachycardia GI/Abdominal exam: PRESENT: other - Abdominal was distended moderately soft and bowel sounds are present. Extremities exam: PRESENT: full ROM. ABSENT: calf tenderness, clubbing, pedal edema Neurological exam: PRESENT: alert, awake, oriented to person, oriented to place, oriented to time, oriented to situation, CN II-XII grossly intact. ABSENT: motor sensory deficit Psychiatric exam: PRESENT: appropriate affect, normal mood. ABSENT: homicidal ideation, suicidal ideation Results Laboratory Results: 03/28/18 05:56 03/28/18 05:56 03/24/18 03/24/18 03/24/18 13:00 13:00 13:53 Creatine Kinase 21 L CK-MB (CK-2) 0.63 NT-Pro-B Natriuret Pep 209 03/24/18 03/24/18 03/25/18 21:46 21:46 04:18 Creatine Kinase 32 25 L CK-MB (CK-2) 1.20 NT-Pro-B Natriuret Pep 03/25/18 04:18 Creatine Kinase CK-MB (CK-2) 0.96 NT-Pro-B Natriuret Pep Impressions: Chest X-Ray 03/24/18 00:00 IMPRESSION: No evidence of acute cardiopulmonary process. Abdomen/Pelvis CT 03/26/18 00:00 IMPRESSION: Sigmoid diverticulitis. KUB X-Ray 03/26/18 21:21 IMPRESSION: Rectal tube/Guerrero catheter in place. Nonspecific bowel gas pattern. copyright 2011 [employer]- All Rights Reserved Acute Abdomen Series 03/28/18 00:00 IMPRESSION: Interval decrease in fecal material within the colon. Assessment & Plan - Diagnosis (1) Rectal bleeding Is this a current diagnosis for this admission?: Yes Plan: 03/24/2018 plan is to admit the patient as inpatient in telemetry. Consultation with Dr. Hou was placed, consultation with Dr. Zarate was placed. Going to keep the patient n.p.o. from midnight. Eliquis will be on hold. Plan to restart her home medications. Going to type and crossmatch 1 unit and hold 1 unit of prbc for now. Plan to do the regular CBC on daily basis. Family wants her to be full code. Placed on GI prophylaxis famotidine 20 mg twice a day. She was placed on SCDs no pharmacologic prophylaxis because of active bleeding. Discussed the advantages and disadvantages of withholding Eliquis. Son ericka mercado verbalize response. He prefers to her mom on Eliquis to prevent further strokes in the future. 03/25/2018-patient with history of atrial fibrillation on Eliquis admitted for rectal bleeding. GI consult was done cardiology consult was done. Be going to stop Eliquis and place the patient on heparin protocol in preparation for possible EGD or colonoscopy. Plan is to hold the heparin drip was 6 hours prior to the procedure. Latest hemoglobin is 11.4. 1 unit of PRBC on hold. 03/26/2018-patient was admitted with bright colored blood per rectum. She has history of atrial fibrillation on Eliquis. Eliquis was stopped and the patient is presently on heparin drip. She is going for colonoscopy tomorrow. Latest hemoglobin is 11.4 stable. 03/27/2018-patient admitted with bright colored blood per rectum. Her hemoglobin in early February is 14.6 latest hemoglobin is 11.5. Acute blood loss anemia most likely secondary to rectal bleed. 03/28/2018-patient has a rectal tube now she has a colonoscopy there is suggestion that patient has ischemic colitis Dr. Hou is not preferred to do the further procedures because of the high risk of perforation I agree with his impression. Patient his hemoglobin is 11.7. It was 14.6 in the first week of February. This may be due to a "blood loss anemia secondary to rectal bleed. Plan is to continue the present management. 03/29/2018-patient was admitted with rectal bleed. Patient has history of paroxysmal atrial fibrillation on Eliquis. Which was on hold. No lab work done today as per the family members. Latest hemoglobin is 11.7 acute on chronic blood loss anemia most likely secondary to rectal bleed. (2) Atrial fibrillation Qualifiers: Atrial fibrillation type: chronic Qualified Code(s): I48.2 - Chronic atrial fibrillation Is this a current diagnosis for this admission?: Yes Plan: 03/24/2018-patient has chronic history of atrial fibrillation and Eliquis. Admitted for lower GI bleed. Eliquis will be held for today. We are going to keep her n.p.o. from midnight for possible colonoscopy tomorrow. Explained to the son, we may have to use heparin iv as a bridge while the patient is off Eliquis. But the son to does not want her mom to be on heparin drip. Patient is on flecainide and diltiazem at home plan is to resume those medications during the hospital stay. 03/25/2018-Eliquis was discontinued for atrial fibrillation and patient is on heparin drip. Plan is to continue the present management. 03/26/2018-patient has history of atrial fibrillation on Eliquis, which was on hold. Presently on heparin bridge and it will be stopped 6 hours prior to colonoscopy. 03/27/2018-patient has history of atrial fibrillation on Eliquis. Patient is presently on heparin drip. Eliquis is on hold. 03/28/2018-patient has history of atrial fibrillation on Eliquis admitted with a GI bleed presently she is on heparin drip. Plan is to continue to coordinate with the GI and surgical team for further management. 03/29/2018 patient has history of paroxysmal atrial fibrillation on Eliquis. Which was on hold. Patient was on heparin drip because of the consideration for possible surgery. But the family wants comfort care measures only today. Going to put her on IV Ativan and IV morphine for anxiety and pain. (3) HTN (hypertension) Is this a current diagnosis for this admission?: Yes Plan: 03/24/2018 patient has history of hypertension blood pressure today is 119/60 stable. Plan is to resume her home medications. 03/25/2018-patient blood pressure today is 111/46. Stable. 03/26/2018 patient has history of hypertension. Latest blood pressure is 147/65. Stable. Plan is to continue her home medications. She is presently on torse mide 10 mg every 3 days, diltiazem 60 mg every 12 hours, flecainide 50 mg every 12 hours, triamterene/hydrochlorothiazide 1 tablet daily. 03/27/2018-patient has a history of hypertension. Blood pressure today is 1 3375. Stable. Plan is to continue the present management. 03/28/2018-patient has history of hypertension and her blood pressure today is 125/50 stable. Presently on torsemide 10 mg p.o. every 3 days, diltiazem 60 mg every 12 hours, flecainide 50 mg every 12 hours, triamterene/hydrochlorothiazide 1 tablet daily. I am going to hold triamterene hydrochlorothiazide and continue to monitor the blood pressures. 03/29/2018-patient has history of high blood pressure her vital signs today blood pressure is 129/55 pulse rate is 79 stable. Patient is going to be on comfort care measures only. (4) Depression Is this a current diagnosis for this admission?: Yes Plan: 03/24/2018 patient has history of depression on duloxetine. Plan is to resume the medications while she was in the hospital. 03/25/2018-patient has history of depression and Cymbalta at home. Which was resumed during this hospital stay. 03/26/2018-patient has history of depression on Cymbalta, Keppra 500 mg p.o. daily, bupropion. Plan is to continue the present management. 03/27/2018-patient has history of depression on Cymbalta/Keppra and also she is on bupropion plan is to continue those medications. (5) Chronic pain syndrome Is this a current diagnosis for this admission?: Yes Plan: 03/26/2018 patient has history of chronic pain syndrome on MS Contin twice a day. She is also on tramadol. Still complaining of shoulder pains. Started on Percocet 5/25 mg every 6 as needed for pain. 03/27/2018-patient has history of chronic pain syndrome on MS Contin twice daily. She is also on tramadol. Yesterday she was started on Percocet 5/25 mg every 6 as needed for pain. May be she has chronic pain with opioid dependency. 03/28/2018-patient history of chronic pain syndrome on MS Contin. She is also on tramadol started on Percocets every 6 as needed. Most likely she has chronic pain with opioid dependency. 03/29/2018-patient has a chronic pain syndrome on MS Contin. Most likely she has a chronic pain with opioid dependency. (6) Volvulus Is this a current diagnosis for this admission?: Yes Plan: 03/29/2018-couple of days ago patient found to have abdominal distention acute abdominal series was done which was always. Follow-up colonoscopy done it indicates ischemic colitis Dr. Hou recommended not to do any endoscopic procedures because of high risk of perforation. Rectal tube was placed. Y esterday even with rectal tube abdominal started getting increasingly distended. Follow-up acute abdominal series done yesterday did not show any volvulus. Rectal tube was removed this morning and family is requested for DNR/DNI and comfort care measures only. Follow-up acute abdominal series will be done this afternoon. Overall condition is critical prognosis poor. - Time Time Spent with patient: 25-34 minutes Medications reviewed and adjusted accordingly: Yes Anticipated discharge: Hospice
[2018-03-29] MEDS: DULOXETINE HCL 30 MG CAPSULE.DR PO SCH (18:33)
[2018-03-29] MEDS: HEPARIN SODIUM,PORCINE/D5W 25,000 UNIT/250 ML RTUINJ IV PRN (19:32)
[2018-03-29] MEDS: FAMOTIDINE 20 MG TABLET PO SCH (21:23)
[2018-03-29] MEDS: ATORVASTATIN CALCIUM 20 MG TABLET PO SCH (21:23)
--- NOTE | 2018-03-29 22:34 | Progress Note ---
Provider Note Provider Note: CARDIOLOGY PROGRESS NOTE by Dr. Veronica Zarate on 03/29/2018. As per discussion with the hospitalist attending physician the patient's son has decided to make the patient hospice care. Hence will sign off the case.
[2018-03-30 04:58] LABS: HEMATOCRIT 31.2 % (36.0-47.0); HEMOGLOBIN 10.5 g/dL (12.0-15.5); MEAN CORPUSCULAR HEMOGLOBIN 29.1 pg (27.0-33.4); MEAN CORPUSCULAR HGB CONC 33.9 g/dL (32.0-36.0); MEAN CORPUSCULAR VOLUME 86 fl (80-97); PLATELET COUNT 302 10^3/uL (150-450); RED BLOOD COUNT 3.62 10^6/uL (3.72-5.28); RED CELL DISTRIBUTION WIDTH 15.8 % (11.5-14.0)
[2018-03-30] MEDS: BUPROPION HCL 75 MG TABLET PO SCH (06:02)
[2018-03-30] MEDS: NORMAL SALINE 1000 ML 1,000 ML IV PRN (10:43)
[2018-03-30] MEDS: NYSTATIN/TRIAMCIN CREAM 15 GM TP SCH (10:43)
[2018-03-30] MEDS: FLECAINIDE ACETATE 100 MG TABLET PO SCH (10:43)
[2018-03-30] MEDS: LEVOFLOXACIN 500 MG TABLET PO SCH (10:44)
[2018-03-30] MEDS: ASCORBIC ACID 500 MG TABLET PO SCH (10:44)
[2018-03-30] MEDS: DILTIAZEM HCL 60 MG TABLET PO SCH (10:44)
[2018-03-30] MEDS: MORPHINE SULFATE SR 30 MG TABLET PO SCH (10:46)
[2018-03-30] MEDS: MULTIVITAMIN TABLET PO SCH (10:46)
[2018-03-30] MEDS: FLUCONAZOLE 100 MG TABLET PO SCH (10:46)
[2018-03-30] MEDS: LEVETIRACETAM 500 MG TABLET PO SCH (10:46)
[2018-03-30] MEDS: TORSEMIDE 20 MG TABLET PO SCH (10:47)
[2018-03-30] MEDS: OXYCODONE-ACETAMINOPHEN 5-325 MG TABLET PO PRN (13:08)
[2018-03-30 17:08] VITALS: BP 136/45
--- NOTE | 2018-03-30 18:02 | PDOC DISCHARGE SUMMARY ---
General - Admit/Disc Date/PCP Admission Date/Primary Care Provider: 03/24/18 15:43 Discharge Date: 03/30/18 - Discharge Diagnosis (1) Rectal bleeding Is this a current diagnosis for this admission?: Yes Summary: 03/24/2018 plan is to admit the patient as inpatient in telemetry. Consultation with Dr. Hou was placed, consultation with Dr. Zarate was placed. Going to keep the patient n.p.o. from midnight. Eliquis will be on hold. Plan to restart her home medications. Going to type and crossmatch 1 unit and hold 1 unit of prbc for now. Plan to do the regular CBC on daily basis. Family wants her to be full code. Placed on GI prophylaxis famotidine 20 mg twice a day. She was placed on SCDs no pharmacologic prophylaxis because of active bleeding. Discussed the advantages and disadvantages of withholding Eliquis. Son understood verbalize response. He prefers to her mom on Eliquis to prevent further strokes in the future. 03/25/2018-patient with history of atrial fibrillation on Eliquis admitted for rectal bleeding. GI consult was done cardiology consult was done. Be going to stop Eliquis and place the patient on heparin protocol in preparation for possible EGD or colonoscopy. Plan is to hold the heparin drip was 6 hours prior to the procedure. Latest hemoglobin is 11.4. 1 unit of PRBC on hold. 03/26/2018-patient was admitted with bright colored blood per rectum. She has history of atrial fibrillation on Eliquis. Eliquis was stopped and the patient is presently on heparin drip. She is going for colonoscopy tomorrow. Latest hemoglobin is 11.4 stable. 03/27/2018-patient admitted with bright colored blood per rectum. Her hemoglobin in early February is 14.6 latest hemoglobin is 11.5. Acute blood loss anemia most likely secondary to rectal bleed. 03/28/2018-patient has a rectal tube now she has a colonoscopy there is suggestion that patient has ischemic colitis Dr. Hou is not preferred to do the further procedures because of the high risk of perforation I agree with his impression. Patient his hemoglobin is 11.7. It was 14.6 in the first week of February. This may be due to a "blood loss anemia secondary to rectal bleed. Plan is to continue the present management. 03/29/2018-patient was admitted with rectal bleed. Patient has history of paroxysmal atrial fibrillation on Eliquis. Which was on hold. No lab work done today as per the family members. Latest hemoglobin is 11.7 acute on chronic blood loss anemia most likely secondary to rectal bleed. 03/30/2018 elderly female admitted for rectal bleed. She had a history of paroxysmal atrial fibrillation on Eliquis. Eliquis was on hold and started on heparin drip for possible colonoscopy. In the meantime she developed a volvulus rectal tube was placed during the colonoscopy volvulus was reduced found to have ischemic colitis. Further endoscopy procedures were discontinued. Her baseline hemoglobin is 14 and dropped close to 11.5 during the hospital stay. Family de cided to take the patient home with hospice care. (2) Atrial fibrillation Is this a current diagnosis for this admission?: Yes Summary: 03/24/2018-patient has chronic history of atrial fibrillation and Eliquis. Admitted for lower GI bleed. Eliquis will be held for today. We are going to keep her n.p.o. from midnight for possible colonoscopy tomorrow. Explained to the son, we may have to use heparin iv as a bridge while the patient is off Eliquis. But the son to does not want her mom to be on heparin drip. Patient is on flecainide and diltiazem at home plan is to resume those medications during the hospital stay. 03/25/2018-Eliquis was discontinued for atrial fibrillation and patient is on heparin drip. Plan is to continue the present management. 03/26/2018-patient has history of atrial fibrillation on Eliquis, which was on hold. Presently on heparin bridge and it will be stopped 6 hours prior to colonoscopy. 03/27/2018-patient has history of atrial fibrillation on Eliquis. Patient is presently on heparin drip. Eliquis is on hold. 03/28/2018-patient has history of atrial fibrillation on Eliquis admitted with a GI bleed presently she is on heparin drip. Plan is to continue to coordinate with the GI and surgical team for further management. 03/29/2018 patient has history of paroxysmal atrial fibrillation on Eliquis. Which was on hold. Patient was on heparin drip because of the consideration for possible surgery. But the family wants comfort care measures only today. Going to put her on IV Ativan and IV morphine for anxiety and pain. 03/30/2018-patient has history of paroxysmal atrial fibrillation on Eliquis which is on hold during the hospital stay she was briefly placed on a heparin drip. Colonoscopy was done for a volvulus and found to have ischemic colitis. Further procedures were discontinued as per GI recommendations. Family decided to take her home on hospice care. (3) HTN (hypertension) Is this a current diagnosis for this admission?: Yes Summary: 03/24/2018 patient has history of hypertension blood pressure today is 119/60 stable. Plan is to resume her home medications. 03/25/2018-patient blood pressure today is 111/46. Stable. 03/26/2018 patient has history of hypertension. Latest blood pressure is 147/65. Stable. Plan is to continue her home medications. She is presently on torsemide 10 mg every 3 days, diltiazem 60 mg every 12 hours, flecainide 50 mg every 12 hours, triamterene/hydrochlorothiazide 1 tablet daily. 03/27/2018-patient has a history of hypertension. Blood pressure today is 1 3375. Stable. Plan is to continue the present management. 03/28/2018-patient has history of hypertension and her blood pressure today is 125/50 stable. Presently on torsemide 10 mg p.o. every 3 days, diltiazem 60 mg every 12 hours, flecainide 50 mg every 12 hours, triamterene/hydrochlorothiazide 1 tablet daily. I am going to hold triamterene hydrochlorothiazide and continue to monitor the blood pressures. 03/29/2018-patient has history of high blood pressure her vital signs today blood pressure is 129/55 pulse rate is 79 stable. Patient is going to be on comfort care measures only. 03/30/2018-patient has history of hypertension 136/45. Blood pressures are stable during the hospital stay. (4) Depression Is this a current diagnosis for this admission?: Yes (5) Chronic pain syndrome Is this a current diagnosis for this admission?: Yes Summary: 03/26/2018 patient has history of chronic pain syndrome on MS Contin twice a day. She is also on tramadol. Still complaining of shoulder pains. Started on Percocet 5/25 mg every 6 as needed for pain. 03/27/2018-patient has history of chronic pain syndrome on MS Contin twice daily. She is also on tramadol. Yesterday she was started on Percocet 5/25 mg every 6 as needed for pain. May be she has chronic pain with opioid dependency. 03/28/2018-patient history of chronic pain syndrome on MS Contin. She is also on tramadol started on Percocets every 6 as needed. Most likely she has chronic pain with opioid dependency. 03/29/2018-patient has a chronic pain syndrome on MS Contin. Most likely she has a chronic pain with opioid dependency. 03/30/2018-patient has history of chronic pain syndrome on MS Contin. Here she was started on tramadol and Percocets. Patient might have chronic pain syndrome probably with opioid dependency. (6) Volvulus Is this a current diagnosis for this admission?: Yes Summary: 03/29/2018-couple of days ago patient found to have abdominal distention acute abdominal series was done which was always. Follow-up colonoscopy done it indicates ischemic colitis Dr. Hou recommended not to do any endoscopic procedures because of high risk of perforation. Rectal tube was placed. Yesterday even with rectal tube abdominal started getting increasingly distended. Follow-up acute abdominal series done yesterday did not show any vo lvulus. Rectal tube was removed this morning and family is requested for DNR/DNI and comfort care measures only. Follow-up acute abdominal series will be done this afternoon. Overall condition is critical prognosis poor. 03/30/2018 patient noticed to have abdominal distention and acute abdominal series was done volvulus was found. Dr. Castellanos did the colonoscopy and volvulus decompressed and rectal tube was placed and the patient continued to have abdominal distention. Rectal tube was removed after 2 days. Family decided to take the patient home on hospice care. - Additional Information Resuscitation Status: Do Not Resuscitate Discharge Diet: Cardiac Discharge Activity: Bedrest Prescriptions: Levofloxacin [Levaquin 500 mg Tablet] 500 mg PO DAILY #5 tablet Home Medications: Ascorbic Acid [C-1000] 1,000 mg PO DAILY 03/24/18 Atorvastatin Calcium [Lipitor 80 mg Tablet] 80 mg PO DAILY 03/24/18 Bupropion HCl [Wellbutrin 75 mg Tablet] 75 mg PO Q8 03/24/18 Diltiazem HCl [Cardizem] 120 mg PO QPM 03/24/18 Duloxetine HCl [Cymbalta] 30 mg PO QPM 03/24/18 Flecainide Acetate [Tambocor 100 mg Tablet] 50 mg PO Q12 03/24/18 Levetiracetam [Keppra 500 mg Tablet] 500 mg PO DAILY 03/24/18 Morphine Sulfate [Morphine Sulfate ER] 30 mg PO Q12 03/24/18 Multivitamin [Tab-A-Delagdo (Multiple Vitamin) Tablet] 1 tab PO DAILY 03/24/18 Naloxegol Oxalate [Movantik 25 mg Tablet] 25 mg PO DAILY 03/24/18 Torsemide [Demadex 10 mg Tablet] 10 mg PO Q3D 03/24/18 Tramadol HCl [Ultram 50 mg Tablet] 50 mg PO Q12HP PRN 03/24/18 Triamterene/Hydrochlorothiazid [Triamterene-Hctz 37.5-25 mg Cp] 2 cap PO DAILY 03/24/18 Atorvastatin Calcium [Lipitor 20 mg Tablet] 20 mg PO QHS tablet 03/30/18 Flecainide Acetate [Tambocor 100 mg Tablet] 50 mg PO Q12 tablet 03/30/18 Levofloxacin [Levaquin 500 mg Tablet] 500 mg PO DAILY #5 tablet 03/30/18 Nystatin/Triamcin [Mycolog-II Cream 15 gm] 1 applic TP QID tube 03/30/18 History of Present Illness History of Present Illness: MICKEY VASQUEZ is a 87 year old female with history of atrial fibrillation on Eliquis, high blood pressure, anxiety, depression, no history of congestive heart failure brought in by family members after noticing bright colored blood in the stool for the last 3 days. She has this problem on and off but for the last 3 days she is having the loose stools in association with heavy bright colored blood in the stool. In the emergency room the workup was done and patient was found to be in A. fib with RVR and hemoglobin is 12.6 the case was discussed with Dr. Hou property disposal manager he is going to see the patient tomorrow for further evaluation. medical consult was called for possible admission to the telemetry. I went to talk to the son and the patient, patient is alert and awake oriented not in distress denies any complaints at all for the last 3-4 days noticed bright colored blood in the stool not associated with abdominal pain no nausea no vomiting no constipation but she is having the loose stools blood . Denies any headaches dizzy spells denies any falls. No fever no cough no cold no chest pains. Patient wants to be full code. Physical Exam Vital Signs: Temp Pulse Resp BP Pulse Ox 98.8 F 72 17 136/45 H 93 03/30/18 17:08 03/30/18 17:08 03/30/18 17:08 03/30/18 17:08 03/30/18 17:08 Intake & Output 03/29/18 03/30/18 03/31/18 06:59 06:59 06:59 Intake Total 4008 2481 400 Output Total 1800 860 Balance 2208 1621 400 Weight 100.3 kg 100.3 kg General appearance: PRESENT: no acute distress Head exam: PRESENT: atraumatic Eye exam: PRESENT: PERRLA Mouth exam: PRESENT: dry mucosa Teeth exam: PRESENT: poor dentation Neck exam: ABSENT: carotid bruit, JVD, lymphadenopathy, thyromegaly Respiratory exam: PRESENT: decreased breath sounds Cardiovascular exam: PRESENT: irregular rhythm, systolic murmur GI/Abdominal exam: PRESENT: other - Abdomen was distended and bowel sounds are present. Extremities exam: PRESENT: full ROM. ABSENT: calf tenderness, clubbing, pedal edema Neurological exam: PRESENT: alert, awake, oriented to person, oriented to place, oriented to time, oriented to situation, CN II-XII grossly intact. ABSENT: motor sensory deficit Psychiatric exam: PRESENT: appropriate affect, normal mood. ABSENT: homicidal ideation, suicidal ideation Results Laboratory Results: 03/30/18 04:45 03/28/18 05:56 03/30/18 04:45 WBC 8.0 RBC 3.62 L Hgb 10.5 L Hct 31.2 L MCV 86 MCH 29.1 MCHC 33.9 RDW 15.8 H Plt Count 302 03/24/18 21:15 Blood Blood Culture - Final NO GROWTH IN 5 DAYS 03/24/18 21:45 Blood Blood Culture - Final NO GROWTH IN 5 DAYS 03/24/18 03/24/18 03/24/18 13:00 13:00 13:53 Creatine Kinase 21 L CK-MB (CK-2) 0.63 NT-Pro-B Natriuret Pep 209 03/24/18 03/24/18 03/25/18 21:46 21:46 04:18 Creatine Kinase 32 25 L CK-MB (CK-2) 1.20 NT-Pro-B Natriuret Pep 03/25/18 04:18 Creatine Kinase CK-MB (CK-2) 0.96 NT-Pro-B Natriuret Pep Impressions: Chest X-Ray 03/24/18 00:00 IMPRESSION: No evidence of acute cardiopulmonary process. Abdomen/Pelvis CT 03/26/18 00:00 IMPRESSION: Sigmoid diverticulitis. KUB X-Ray 03/26/18 21:21 IMPRESSION: Rectal tube/Guerrero catheter in place. Nonspecific bowel gas pattern. copyright 2011 [employer]- All Rights Reserved Acute Abdomen Series 03/28/18 00:00 IMPRESSION: Interval decrease in fecal material within the colon. Qualifiers - * PATIENT BEING DISCHARGED WITH ANY OF THE FOLLOWING DIAGNOSIS: No VTE patient discharged on overlapping Therapy?: No
== END 2018-03-30 17:30 | disposition hospice, home (50) | DRG 377 ==
LOC: ER 11:44 → EH 15:43 → 4S 21:21
PROVIDERS: ADMIT Hospitalist; ATTEND Hospitalist
PROC: 0D7N8ZZ Dilation of Sigmoid Colon, Via Natural or Artificial Opening Endoscopic (ICD-10-PCS; principal; 2018-03-26 21:00)
DX: K62.5 Hemorrhage of anus and rectum (principal); K56.2 Volvulus; D62 Acute posthemorrhagic anemia; K55.9 Vascular disorder of intestine, unspecified; F11.20 Opioid dependence, uncomplicated; Z66 Do not resuscitate; Z51.5 Encounter for palliative care; I48.0 Paroxysmal atrial fibrillation; D50.0 Iron deficiency anemia secondary to blood loss (chronic); F32.9 Major depressive disorder, single episode, unspecified; F41.9 Anxiety disorder, unspecified; G89.4 Chronic pain syndrome; F03.90 Unspecified dementia, unspecified severity, without behavioral disturbance, psychotic disturbance, mood disturbance, and anxiety; E78.5 Hyperlipidemia, unspecified; M19.90 Unspecified osteoarthritis, unspecified site; E66.01 Morbid (severe) obesity due to excess calories; I12.9 Hypertensive chronic kidney disease with stage 1 through stage 4 chronic kidney disease, or unspecified chronic kidney disease; N18.3 Chronic kidney disease, stage 3 (moderate); I48.2 Chronic atrial fibrillation; B95.2 Enterococcus as the cause of diseases classified elsewhere; R09.02 Hypoxemia; Z79.01 Long term (current) use of anticoagulants; Z79.899 Other long term (current) drug therapy; Z86.73 Personal history of transient ischemic attack (TIA), and cerebral infarction without residual deficits; Z90.49 Acquired absence of other specified parts of digestive tract; Z90.710 Acquired absence of both cervix and uterus; Z88.6 Allergy status to analgesic agent; Z88.3 Allergy status to other anti-infective agents; Z88.2 Allergy status to sulfonamides; Z88.8 Allergy status to other drugs, medicaments and biological substances; Z85.528 Personal history of other malignant neoplasm of kidney; Z82.49 Family history of ischemic heart disease and other diseases of the circulatory system
CPT/HCPCS: 36415; 45378; 71046; 74018; 74022; 74176; 80053; 81001; 82272; 82550; 82553; 83735; 83880; 84132; 84443; 85025; 85027; 85610; 85730; 86850; 86900; 86901; 86920; 87040; 87086; 87088; 87186; 93005; 93010; 99285; J0171; J1200; J1610; J1644; J2250; J2310; J2405; J2704; J3010; J3475; J3480; J3490; J7030